=== PATIENT | male | born 1975 ===

== ENCOUNTER 2019-12-25 11:04 | Outpatient (REF) | payer BC, SELFPAY | END 2019-12-25 11:05 | disposition home or self-care (01) | LOC: HO.LAB 11:04 | PROVIDERS: PCP Internal Medicine; Visit Provider Internal Medicine | DX: Z20.828 Contact with and (suspected) exposure to other viral communicable diseases (principal) | CPT/HCPCS: 87635 ==

== ENCOUNTER 2019-12-28 21:28 | Emergency (ER) | payer BC, SELFPAY ==
[2019-12-28 21:40] VITALS: BP 145/111; PULSE 88; RESP 16; TEMP 37.8; O2SAT 95; BMI 31.4
--- NOTE | 2019-12-28 23:23 | ED_ITS ---
HPI - Abdominal Pain General Chief Complaint: Back Pain/Injury Stated Complaint: BACK PAIN Time Seen by Provider: 12/28/19 23:22 Source: patient Mode of arrival: ambulatory Limitations: no limitations History of Present Illness HPI narrative: 44-year-old male presents with left-sided flank pain and swelling. States that he was tested positive for COVID-19 several weeks ago, and has been recently tested negative after Isolation and feels as if he has fully recovered. Left-sided flank pain started several days ago, and he noted that skin to his left flank was swollen. He does not describe any fevers or chi lls, chest pain or pressure, palpitations, shortness of breath, abdominal distention, dysuria, hematuria, and edema. MD elicited complaint: flank pain Pertinent past history: kidney stones Onset (ago): day(s) Pain Consistency: constant and colicky Location: L flank Severity: moderate Pain scale (0-10): 8 Quality: cramping, aching and burning Radiation: none Exacerbating factors: movement Relieving factors: nothing Associated symptoms: denies other symptoms Treatments prior to arrival: NSAIDs Related Data Allergies Allergy/AdvReac Type Severity Reaction Status Date / Time bee pollen [BEE STINGS] Allergy Unknown ANAPHYLAXIS Unverified 12/03/19 16:59 Bleach (Sodium Hypochlorite) Allergy Unknown DIFF Unverified 12/03/19 16:59 [BLEACH (SODIUM BREATHING HYPOCHLORITE)] Fish Containing Products Allergy Unknown HIVES Unverified 12/03/19 16:59 Fish Allergy Unknown swelling Uncoded 09/12/12 00:00 Laundry chemicals Allergy Unknown swelling Uncoded 09/12/12 00:00 Review of Systems Review of Systems Constitutional: No Fever, No Chills ENT/Mouth: No sore throat Eyes: No Eye Pain, No Swelling, No Redness Cardiovascular: No Chest Pain, No SOB Respiratory: No Cough, No Sputum, No Wheezing Gastrointestinal: No nausea, no vomiting, No Diarrhea, positive abdominal pain Genitourinary: positive Flank Pain, no dysuria, no hematuria, no urgency, no hesitancy Musculoskeletal: No joint pain, No Myalgias Skin: No Skin Lesions, No rash Neuro: No Weakness, No Numbness, No Headache Psych: No Anxiety/Panic, No Depression Heme/Lymph: No Bruising, No Lymphadenopathy Endocrine: No Polyuria, No Polydipsia Physical Exam Vital Signs: Vital Signs: Vital Signs Temp Pulse Resp BP Pulse Ox 12/28/19 21:40 100.0 F 88 16 145/111 H 95 Body Mass Index 31.4 Appearance: Alert. Oriented X3. mild distress. Eyes: Pupils equal, round and reactive to light. ENT: Pharynx normal. Neck: Normal inspection. Neck supple. CVS: Normal heart rate and rhythm. Pulses normal. Respiratory: No respiratory distress. Breath sounds normal. Abdomen: Soft, tender to left lower quadrant, positive CVA tenderness to left side. Skin: Skin warm and dry. Normal skin color. Normal skin turgor. Extremities: No lower extremity edema. No lower extremity edema. Neuro: No motor deficit. No sensory deficit. Course Course Course Narrative: patient does have a history of kidney stones, we will treat with Toradol, saline, obtain urinalysis and CT scan of the abdomen. Respiration rate is 16, breath sounds are clear, CBC and Chem 7 are normal. Urinalysis is unremarkable. CT scan of abdomen shows kidney cyst And does not indicate any findings needing emergent intervention at this time. Detailed description of CT scan results with patient, patient will follow-up with primary care provider to closely follow this cyst. He does have plenty of Motrin at home and does not require further pain management. Patient verbalized understanding of and agrees to plan of care to discharge home. MDM - Abdominal Pain Differential Diagnosis Differential diagnosis: Likely abdominal pain, acute appendicitis, bowel perforation, calculus of kidney, constipation, diverticulitis, gastroenteritis, gastritis, mesenteric ischemia, pancreatitis and small bowel obstruction Medical Records Attestation: I reviewed the patient's medical records. Lab Data Attestation: I reviewed the patient's lab results. Result diagrams: 12/28/19 23:40 12/28/19 23:40 Labs: Lab Results 12/28/19 12/28/19 12/28/19 Range/Units 23:40 23:40 23:40 WBC 10.6 (4.8-10.8) X10*3/uL RBC 4.76 (4.60-5.80) X10*6/uL Hgb 15.0 (14.0-18.0) g/dl Hct 43.6 (42-52) % MCV 91.6 (80-98) fL MCH 31.5 (27.0-33.0) pg MCHC 34.4 (31.0-36.0) g/dl RDW 12.6 (11.0-16.0) % Plt Count 264 (160-400) X10*3/uL MPV 10.6 (9.4-12.4) fL Immature Gran % (Auto) 0.3 (0.0-0.4) % Neut % (Auto) 58.1 (45-73) % Lymph % (Auto) 27.1 (20-40) % [place] % (Auto) 7.7 (2-11) % Eos % (Auto) 5.9 H (0-4) % Baso % (Auto) 0.9 (0-2) % Lymph # (Auto) 2.9 (1.2-4.9) X10*3/uL [place] # (Auto) 0.8 (0.1-1.2) X10*3/uL Eos # (Auto) 0.6 H (0.0-0.4) X10*3/uL Baso # (Auto) 0.1 (0.0-0.2) X10*3/uL Abs Immat Gran (auto) 0.03 (0.00-0.03) X10*3/uL Absolute Neuts (auto) 6.2 (2.0-8.3) X10*3/uL Absolute Nucleated RBC 0.000 (0.0-0.012) X10*3/uL Nucleated RBC % (auto) 0.0 (0.0-0.2) /100WBC Sodium 139 (135-145) mmol/L Potassium 4.2 (3.3-5.1) mmol/l Chloride 106 (96-108) mmol/L Carbon Dioxide 25 (22-29) mmol/L Anion Gap 12 (12-20) BUN 8 L (9-16) mg/dL Creatinine 0.94 (0.5-1.4) mg/dL Estim Creat Clear Calc 121.9 Estimated GFR > 60 Random Glucose 113 (60-115) mg/dL Calcium 9.1 (8.4-10.2) mg/dL Urine Color YELLOW Urine Appearance CLEAR Urine pH 6.0 (5.0-8.0) Ur Specific [place] 1.010 (1.005-1.025) Urine Protein NEG (NEG-TRACE) MG/DL Urine Glucose (UA) NEG (NEG) MG/DL Urine Ketones NEG (NEG) MG/DL Urine Blood NEG (NEG) Urine Nitrite NEG (NEG) Ur Leukocyte Esterase NEG (NEG) Imaging Data CT scan - abdomen: Attestation: I personally reviewed and interpreted this imaging study as follows: Radiologist's impression: FINDINGS: LUNG BASES: Some minimal right basilar atelectasis is present. A tiny lung nodule is partially visualized at the left base anteriorly. A small 7 mm right posterior paracardiac lymph node is present. LIVER, GALLBLADDER, AND BILIARY TREE: The liver is normal in size, shape, and attenuation. No focal hepatic lesion or biliary ductal dilatation is present. Surgical clips present in the gallbladder fossa status post cholecystectomy. PANCREAS: Unremarkable SPLEEN: Unremarkable ADRENAL GLANDS: Unremarkable KIDNEYS AND URETERS: The kidneys are normal in size, shape, and attenuation. There is a 5 mm hypoattenuating mass in the mid right kidney most likely a cyst. No worrisome masses are seen. No hydronephrosis, hydroureter, or calculi seen. No perinephric stranding. BLADDER: Unremarkable GASTROINTESTINAL TRACT: The small and large bowel are unremarkable. The appendix is unremarkable. ABDOMINAL WALL: No significant hernia is appreciated. LYMPH NODES: No retroperitoneal lymphadenopathy. Bilateral small inguinal lymph nodes are seen. VASCULAR: Unremarkable PELVIC VISCERA: Prostate and seminal vesicles appear normal. OSSEOUS STRUCTURES: Unremarkable IMPRESSION: A cause for the patient's left flank pain has not been found. Incidental findings as described above. Discharge Plan Discharge Clinical Impression: Renal cyst, Incidental pulmonary nodule, > 3mm and < 8mm Thoracic back pain Qualifiers: Chronicity: acute Back pain laterality: left Qualified Code(s): M54.6 - Pain in thoracic spine Patient Disposition: Admitted As Inpatient Additional Instructions: you were evaluated for left flank pain. CT scan negative for any findings needing acute intervention. Incidental findings are a pulmonary nodule and a right renal cyst. Please follow-up with primary care physician as these findings require Monitoring. Your blood pressure was moderately elevated today. This needs to be addressed by primary care provider. Blood pressure Upon arrival was 145/111. this blood pressure could be due to stress or pain, but primary hypertension cannot be ruled out. Thank you for choosing this emergency department for evaluation. Please follow -up with primary care physician as needed. Return to the emergency department for any new, concerning, or worsening symptoms. [facility] Past Medical History Attestation statement: The following information was validated with the patient. Medical History Asthma Cholelithiasis Hypertension Juan Alberto Parkinson White pattern seen on electrocardiogram Surgical History Hx of heart artery stent Social History Social History Advance Directives: No
[2019-12-28 23:52] LABS: MANUAL DIFF FLAG NO
[2019-12-28 23:57] LABS: Basophils Absolute Auto 0.1 X10*3/uL (0.0-0.2); Basophils Percent Auto 0.9 % (0-2); Eosinophils Absolute Auto 0.6 X10*3/uL (0.0-0.4); Eosinophils Percent Auto 5.9 % (0-4); Hematocrit 43.6 % (42-52); Imm Gran Abs Auto 0.03 X10*3/uL (0.00-0.03); Imm Gran Pct Auto 0.3 % (0.0-0.4); Lymphocytes Absolute Auto 2.9 X10*3/uL (1.2-4.9); Lymphocytes Percent Auto 27.1 % (20-40); Mean Corpuscular HGB Conc 34.4 g/dl (31.0-36.0); Mean Corpuscular Hemoglobin 31.5 pg (27.0-33.0); Mean Corpuscular Volume 91.6 fL (80-98); Mean Platelet Volume 10.6 fL (9.4-12.4); Monocytes Absolute Auto 0.8 X10*3/uL (0.1-1.2); Monocytes Percent Auto 7.7 % (2-11); Neutrophils Absolute Auto 6.2 X10*3/uL (2.0-8.3); Neutrophils Percent Auto 58.1 % (45-73); Platelet Count 264 X10*3/uL (160-400); Red Blood Count 4.76 X10*6/uL (4.60-5.80); Red Cell Distribution Width 12.6 % (11.0-16.0); White Blood Count 10.6 X10*3/uL (4.8-10.8)
--- NOTE | 2019-12-29 | CT_ITS ---
EXAMINATION: CT ABDOMEN AND PELVIS WITHOUT AND WITH CONTRAST CLINICAL INFORMATION: Left flank pain COMPARISON: None TECHNIQUE: Multidetector volumetric imaging was performed of the abdomen and pelvis before and after the IV administration of 85 mL of Omnipaque 350 intravenous contrast. Sagittal and coronal reformatted images were obtained on the technologist's workstation. This CT examination was performed using dose optimization techniques as appropriate, variously including the following: *Automated exposure control *Adjustment of mA and/or kV according to patient size (this includes techniques or standardized protocols for targeted exams where dose is matched to indication/reason for exam; i.e. extremities or head) *Use of iterative reconstruction technique DLP: 239 mGy-cm FINDINGS: LUNG BASES: Some minimal right basilar atelectasis is present. A tiny lung nodule is partially visualized at the left base anteriorly. A small 7 mm right posterior paracardiac lymph node is present. LIVER, GALLBLADDER, AND BILIARY TREE: The liver is normal in size, shape, and attenuation. No focal hepatic lesion or biliary ductal dilatation is present. Surgical clips present in the gallbladder fossa status post cholecystectomy. PANCREAS: Unremarkable SPLEEN: Unremarkable ADRENAL GLANDS: Unremarkable KIDNEYS AND URETERS: The kidneys are normal in size, shape, and attenuation. There is a 5 mm hypoattenuating mass in the mid right kidney most likely a cyst. No worrisome masses are seen. No hydronephrosis, hydroureter, or calculi seen. No perinephric stranding. BLADDER: Unremarkable GASTROINTESTINAL TRACT: The small and large bowel are unremarkable. The appendix is unremarkable. ABDOMINAL WALL: No significant hernia is appreciated. LYMPH NODES: No retroperitoneal lymphadenopathy. Bilateral small inguinal lymph nodes are seen. VASCULAR: Unremarkable PELVIC VISCERA: Prostate and seminal vesicles appear normal. OSSEOUS STRUCTURES: Unremarkable IMPRESSION: A cause for the patient's left flank pain has not been found. Incidental findings as described above.
[2019-12-29 00:04] LABS: Glucose Urine UA NEG (NEG); Leukocyte Esterase Urine NEG (NEG); Nitrite Urine NEG (NEG); Urine Blood NEG (NEG); Urine Ketones NEG (NEG); Urine Protein NEG (NEG-TRACE)
--- NOTE | 2019-12-29 00:04 | PC.NURSE ---
pt not at bedside. iv started labs and urine sent.
[2019-12-29 00:08] LABS: Appearance Urine CLEAR; Color Urine YELLOW; UACC Culture Trigger NO
[2019-12-29 00:21] LABS: Anion Gap 12 (12-20); Blood Urea Nitrogen 8 mg/dL (9-16); Calcium 9.1 mg/dL (8.4-10.2); Carbon Dioxide 25 mmol/L (22-29); Chloride 106 mmol/L (96-108); Creatinine Clr Calc Pharmacy 121.9; Estimated Glomerular Filt Rate > 60; Glucose Random 113 mg/dL (60-115); Potassium 4.2 mmol/l (3.3-5.1); Sodium 139 mmol/L (135-145)
[2019-12-29] MEDS: iohexoL 350 MG/ML 100 ML INFUS..BTL 85 ML IV (00:36)
[2019-12-29] MEDS: 0.9 % Sodium Chloride 1,000 ML 999 ML IVCONT (00:50)
[2019-12-29] MEDS: ondansetron HCL 4 MG/2 ML VIAL IVPUSH (00:51)
[2019-12-29] MEDS: Ketorolac Tromethamine 30 MG/ML VIAL IV (00:51)
[2019-12-29 01:52] VITALS: BP 132/94; PULSE 62; O2SAT 99
== END 2019-12-29 01:54 | disposition home or self-care (01) ==
PROVIDERS: Nurse Practitioner Family; Emergency Provider Internal Medicine; PCP Internal Medicine
DX: M54.6 Pain in thoracic spine (principal); N28.1 Cyst of kidney, acquired; R91.8 Other nonspecific abnormal finding of lung field; I10 Essential (primary) hypertension; I45.6 Pre-excitation syndrome; F17.200 Nicotine dependence, unspecified, uncomplicated; Z86.19 Personal history of other infectious and parasitic diseases
CPT/HCPCS: 36415; 74178; 80048; 81003; 85025; 96361; 96374; 96375; 99283; 99284; J1885; J2405

== ENCOUNTER 2020-02-29 08:32 | Outpatient (REF) | payer BC, SELFPAY ==
--- NOTE | 2020-02-29 08:34 | CT_ITS ---
EXAMINATION: CT CHEST WITH CONTRAST CLINICAL INFORMATION: Solitary pulmonary nodule. COMPARISON: CT abdomen 12/29/2019 TECHNIQUE: Multidetector volumetric CT imaging of the chest was obtained after the administration of 75 mL of Omnipaque 350 intravenous contrast without immediate adverse reactions. Axial MIP volume rendering provided. Sagittal and coronal reformatted images were obtained. This CT examination was performed using dose optimization techniques as appropriate, variously including the following: *Automated exposure control *Adjustment of mA and/or kV according to patient size (this includes techniques or standardized protocols for targeted exams where dose is matched to indication/reason for exam; i.e. extremities or head) *Use of iterative reconstruction technique DLP: 191 mGy-cm FINDINGS: LUNGS: Multiple pulmonary nodules are seen. As seen on series 5, the larger nodules are as follows: Right middle lobe 6 mm nodule image 310. Right lower lobe 3 mm nodule image 432; 4 mm nodule image 357; 3 mm nodule image 305. Scattered small nodules in the left lung, for example 2 mm nodule image 188. MEDIASTINUM: Visualized thyroid gland appears unremarkable. No lymphadenopathy by size criteria is seen in the mediastinum or delta. Normal caliber great vessels. Normal heart size. No pericardial effusion. PLEURA: There is no pleural effusion. No pleural mass or thickening. AXILLA: Short axis subcentimeter nonspecific bilateral axillary lymph nodes. No lymphadenopathy by size criteria. UPPER ABDOMEN: Diffuse low attenuation liver suggesting hepatic steatosis. Status post-cholecystectomy. OSSEOUS STRUCTURES: No suspicious findings. CT/CT chest w con IMPRESSION: Multiple pulmonary nodules, the largest measuring 6 mm, detailed above. According to the UPDATED 2017 Fleischner Society recommendations, the advised followup imaging for multiple solid nodules, the largest measuring 6 mm or greater, is: LOW RISK PATIENT: CT at 3-6 months, then consider CT at 18-24 months. HIGH RISK PATIENT: CT at 3-6 months, then at 18-24 months. Hepatic steatosis. Status post-cholecystectomy.
[2020-02-29] MEDS: iohexoL 350 MG/ML 100 ML INFUS..BTL 75 ML IV (09:36)
== END 2020-02-29 08:33 | disposition home or self-care (01) ==
LOC: HO.CT 08:32
PROVIDERS: Visit Provider Physician Assistant
DX: R91.1 Solitary pulmonary nodule (principal)
CPT/HCPCS: 71260; Q9967

== ENCOUNTER 2020-03-29 09:13 | Outpatient (REF) | payer BC, SELFPAY ==
[2020-03-29 13:49] LABS: Urine Cytology See Pathology rpt
[2020-03-29 14:31] LABS: Glucose Urine UA NEG (NEG); Leukocyte Esterase Urine NEG (NEG); Nitrite Urine NEG (NEG); Urine Blood NEG (NEG); Urine Ketones NEG (NEG); Urine Protein NEG (NEG-TRACE)
[2020-03-29 14:33] LABS: Appearance Urine CLEAR; Color Urine YELLOW
[2020-03-29 14:43] LABS: Anion Gap 13 (12-20); Blood Urea Nitrogen 8 mg/dL (9-16); Calcium 8.9 mg/dL (8.4-10.2); Carbon Dioxide 25 mmol/L (22-29); Chloride 108 mmol/L (96-108); Estimated Glomerular Filt Rate > 60; Potassium 4.4 mmol/l (3.3-5.1); Sodium 142 mmol/L (135-145)
[2020-03-29 15:11] LABS: Creatinine, mg/dL 107.13; Protein mg/dL < 7 mg/dL
[2020-03-29 15:12] LABS: Creatinine (CrCl) 0.82 mg/dL (0.5-1.4); Creatinine Clearance 115.6 mL/min (85-125)
[2020-03-29 15:13] LABS: Creatinine, 24Hr Urine 1.4 G/Day (1.0-2.0); Protein 24 Hr Urine < 89 mg/Day (<150); Total Volume 24 Hour Urine 1275 mL
[2020-03-30 18:57] LABS: Urea, 24 Hr Urine 7 g/24 h (6-17)
== END 2020-03-29 09:14 | disposition home or self-care (01) ==
LOC: HO.10HDL 09:13
PROVIDERS: Visit Provider Internal Medicine Hypertension Specialist
DX: I10 Essential (primary) hypertension (principal); N28.89 Other specified disorders of kidney and ureter
CPT/HCPCS: 36415; 80051; 81003; 82310; 82565; 82575; 84156; 84520; 84540; 88112

== ENCOUNTER 2020-04-20 09:04 | Emergency (ER) | payer BC, SELFPAY ==
[2020-04-20 09:42] VITALS: BP 149/97; PULSE 77; RESP 16; TEMP 36.8; O2SAT 97; BMI 34.7
--- NOTE | 2020-04-20 09:54 | XR_ITS ---
EXAMINATION: XR CHEST CLINICAL INFORMATION: Chest pain and SOB COMPARISON: Chest 12/12/2019 TECHNIQUE: Frontal view of the chest was obtained. FINDINGS: No significant abnormality is noted involving the heart, lungs, mediastinum, bony thorax or soft tissues. XR/XR chest 1V IMPRESSION: Unremarkable chest examination.
--- NOTE | 2020-04-20 09:54 | ECG_ITS ---
Test Reason : CP Blood Pressure : / mmHG Vent. Rate : 075 BPM Atrial Rate : 075 BPM P-R Int : 144 ms QRS Dur : 094 ms QT Int : 342 ms P-R-T Axes : 014 000 010 degrees QTc Int : 381 ms Normal sinus rhythm Normal ECG When compared with ECG of 30-NOV-2019 13:36, No significant change was found Referred By: Janay Nelson Electronically Signed By:BASSAM BOO MD
--- NOTE | 2020-04-20 09:57 | ED_ITS ---
HPI - General Adult General Chief complaint: General Medical Stated complaint: chest pain Time Seen by Provider: 04/20/20 09:54 Source: patient Mode of arrival: ambulatory History of Present Illness HPI narrative: 45-year-old male with a past medical history of HTN, CAD s/p stent, newly diagnosed renal mass/pulmonary nodules, previously COVID-19+ presenting to the ED complaining of sudden onset substernal chest pain after coughing radiating to right shoulder x this morning at 7:00 a.m. Admits pain worse with deep breathing/movement with mild SOB. Denies fever, chills, nausea/vomiting, abdominal pain, LE edema Onset (ago): hour(s) Related Data Previous Rx's Medication Instructions Recorded acetaminophen [Tylenol Extra 500 mg PO Q6H PRN #20 tab 04/20/20 Strength] lidocaine [Lidoderm] 1 patch TOPICAL DAILY PRN #30 ea 04/20/20 MDD remove after 12 hours naproxen 500 mg PO BID PRN 10 Days #20 tab 04/20/20 Allergies Allergy/AdvReac Type Severity Reaction Status Date / Time bee pollen [BEE STINGS] Allergy Unknown ANAPHYLAXIS Verified 12/30/19 13:31 Bleach (Sodium Hypochlorite) Allergy Unknown DIFF Verified 12/30/19 13:31 [BLEACH (SODIUM BREATHING HYPOCHLORITE)] Fish Containing Products Allergy Unknown HIVES Verified 12/30/19 13:31 Review of Systems Review of Systems: Constitutional: No Weight loss, No Fever, No Chills Cardiovascular: + Chest Pain, + SOB, No Dyspnea on Exertion, + Orthopnea, No Edema, No Palpitations Respiratory: No Cough Gastrointestinal: No Nausea, No Vomiting, No Diarrhea, No Constipation, No Abdominal pain Genitourinary: No irregular bleeding, No Dysuria, No Urinary Frequency, No Hematuria Musculoskeletal: No joint pain, No Myalgias, No Joint Swelling Skin: No Skin Lesions, No rash Neuro: No Weakness, No Numbness, No Paresthesias Yes all other systems are reviewed and are negative [facility] Past Medical History Medical History (Updated 04/20/20 @ 13:52 by SKY Nunes) Asthma CAD (coronary artery disease) Cholelithiasis Essential hypertension Hypertension Lung nodule Nocturia Right kidney mass Juan Alberto Parkinson White pattern seen on electrocardiogram Surgical History History of cardiac catheterization History of laparoscopic cholecystectomy Hx of heart artery stent Family History Family History (Updated 12/30/19 @ 13:18 by MICKEY Calhoun) Son Heart murmur Daughter Heart disease Maternal Aunt Cancer Myocardial infarction Mother Cancer Father Heart disease Social History Social History Smoking Status: Current every day smoker Packs Per Day: 1 Cigarettes Per Day: 20.0 Advance Directives: Yes Advance Directives Information Provided: Yes Advance Directives on File: No Physical Exam Vital Signs: Vital Signs: Last Vital Signs Temp 98.2 F 04/20/20 09:42 Pulse 77 04/20/20 09:42 Resp 16 04/20/20 09:42 BP 149/97 H 04/20/20 09:42 Pulse Ox 97 04/20/20 09:42 Body Mass Index 34.7 Const: General: cooperative, healthy appearing, comfortable and no acute distress Orientation/consciousness: patient oriented x3 Limitations: no limitations HENMT: Head: Yes normal to inspection Ears: hearing grossly normal bilaterally General nose exam: Normal external nose present Face and sinus: Yes normal facial exam Eyes: General: appearance normal, both eyes and all related structures EOM: EOMs intact bilaterally Neck: Neck: Yes normal visual inspection and Yes no meningeal signs Chest: Chest palpation & inspection: normal inspection of the chest, no crepitus and tenderness (Substernal area) Resp: Effort & Inspection: normal respiratory effort Auscultation: clear to auscultation bilaterally, no rales, no rhonchi and no wheezes Cardio: Rate: regular rate Heart sounds: S1 normal heart sound present and S2 normal heart sound present GI: Inspection: Yes normal to inspection Palpation (GI): Soft to palpation, nontender, no guarding and not rigid Skin: Rashes: no rashes Wounds: no wounds Neuro: General: patient oriented x3 and no meningeal signs Gait exam (Neuro): Normal gait present Extrem: Other: No LE edema or calf tenderness General: Yes normal to inspection Course Course Course Narrative: -1227-- D-dimer negative, initial troponin 6.8 > will obtain 3 hour repeat, labs otherwise unremarkable, CXR unremarkable -1352-- repeat troponin without 50% increase, VT unlikely. Results discussed with patient including worrisome signs and symptoms and strict return precautions. He verbalized understanding feel safe for discharge home Medical Decision Making MDM Narrative Medical decision making narrative: 45-year-old male with a past medical history of HTN, CAD s/p stent, newly diagnosed renal mass/pulmonary nodules, previously COVID-19+ presenting to the ED complaining of sudden onset substernal chest pain after coughing radiating to right shoulder x this morning at 7:00 a.m. on exam VSS, NAD/nontoxic, pain reproducible, lungs CTA. With patient's history concerning for ACS/PE vs MSK pain/costochondritis. Lower concern for DVT/CHF or pneumonia. Low concern for COVID-19 Plan: EKG, labs, CXR, re-evaluate Lab Data Result diagrams: 04/20/20 10:29 04/20/20 10:29 Labs: Lab Results 04/20/20 04/20/20 04/20/20 Range/Units 10:29 10:29 10:29 WBC 9.8 (4.8-10.8) X10*3/uL RBC 4.81 (4.60-5.80) X10*6/uL Hgb 15.5 (14.0-18.0) g/dl Hct 44.6 (42-52) % MCV 92.7 (80-98) fL MCH 32.2 (27.0-33.0) pg MCHC 34.8 (31.0-36.0) g/dl RDW 12.6 (11.0-16.0) % Plt Count 233 (160-400) X10*3/uL MPV 11.3 (9.4-12.4) fL Immature Gran % (Auto) 0.3 (0.0-0.4) % Neut % (Auto) 61.6 (45-73) % Lymph % (Auto) 27.2 (20-40) % [place] % (Auto) 6.8 (2-11) % Eos % (Auto) 3.2 (0-4) % Baso % (Auto) 0.9 (0-2) % Lymph # (Auto) 2.7 (1.2-4.9) X10*3/uL [place] # (Auto) 0.7 (0.1-1.2) X10*3/uL Eos # (Auto) 0.3 (0.0-0.4) X10*3/uL Baso # (Auto) 0.1 (0.0-0.2) X10*3/uL Abs Immat Gran (auto) 0.03 (0.00-0.03) X10*3/uL Absolute Neuts (auto) 6.0 (2.0-8.3) X10*3/uL Absolute Nucleated RBC 0.000 (0.0-0.012) X10*3/uL Nucleated RBC % (auto) 0.0 (0.0-0.2) /100WBC PT 12.1 (10.8-13.0) SEC INR 1.0 (0.9-1.1) APTT 32.1 (24.1-38.0) SEC D-Dimer < 200 NG/ML Sodium 138 (135-145) mmol/L Potassium 4.4 (3.3-5.1) mmol/L Chloride 106 (96-108) mmol/L Carbon Dioxide 23 (22-29) mmol/L Anion Gap 13 (12-20) BUN 7 L (9-16) mg/dL Creatinine 0.88 (0.5-1.4) mg/dL Estim Creat Clear Calc 135.4 Estimated GFR > 60 Random Glucose 94 (60-115) mg/dL Calcium 9.1 (8.4-10.2) mg/dL Troponin I High Sens (<3.5-35.0) ng/L B-Natriuretic Peptide (<100) pg/mL 04/20/20 04/20/20 04/20/20 Range/Units 10:29 10:29 12:36 WBC (4.8-10.8) X10*3/uL RBC (4.60-5.80) X10*6/uL Hgb (14.0-18.0) g/dl Hct (42-52) % MCV (80-98) fL MCH (27.0-33.0) pg MCHC (31.0-36.0) g/dl RDW (11.0-16.0) % Plt Count (160-400) X10*3/uL MPV (9.4-12.4) fL Immature Gran % (Auto) (0.0-0.4) % Neut % (Auto) (45-73) % Lymph % (Auto) (20-40) % [place] % (Auto) (2-11) % Eos % (Auto) (0-4) % Baso % (Auto) (0-2) % Lymph # (Auto) (1.2-4.9) X10*3/uL [place] # (Auto) (0.1-1.2) X10*3/uL Eos # (Auto) (0.0-0.4) X10*3/uL Baso # (Auto) (0.0-0.2) X10*3/uL Abs Immat Gran (auto) (0.00-0.03) X10*3/uL Absolute Neuts (auto) (2.0-8.3) X10*3/uL Absolute Nucleated RBC (0.0-0.012) X10*3/uL Nucleated RBC % (auto) (0.0-0.2) /100WBC PT (10.8-13.0) SEC INR (0.9-1.1) APTT (24.1-38.0) SEC D-Dimer NG/ML Sodium (135-145) mmol/L Potassium (3.3-5.1) mmol/L Chloride (96-108) mmol/L Carbon Dioxide (22-29) mmol/L Anion Gap (12-20) BUN (9-16) mg/dL Creatinine (0.5-1.4) mg/dL Estim Creat Clear Calc Estimated GFR Random Glucose (60-115) mg/dL Calcium (8.4-10.2) mg/dL Troponin I High Sens 6.8 9.3 (<3.5-35.0) ng/L B-Natriuretic Peptide < 10 (<100) pg/mL Discharge Plan Discharge Clinical Impression: Atypical chest pain, Costochondritis Patient Disposition: Home, Self-Care Instructions: Chest Pain (ED) Additional Instructions: Your blood work was reassuring today in the ED Your x-ray was normal You need to follow-up with your primary care doctor as well as Cardiology If your symptoms persist or worsen, become unbearable, fever, or shortness of breath return to the ED Naproxen as an anti-inflammatory/pain medication, take with food. In addition jack Benderenol and use Lidoderm patches Prescriptions: New acetaminophen [Tylenol Extra Strength] 500 mg tablet 500 mg PO Q6H PRN (Reason: pain or fever) Qty: 20 RF: 0 lidocaine [Lidoderm] 5 % adhesive patch,medicated 1 patch topical DAILY MDD remove after 12 hours PRN (Reason: pain) Qty: 30 RF: 0 naproxen 500 mg tablet 500 mg PO BID PRN (Reason: pain) 10 Days Qty: 20 RF: 0 Referrals: Addison Lilly MD [Physician] - 1 week Stand Alone Forms: Work/School Release
[2020-04-20 10:36] LABS: MANUAL DIFF FLAG NO
[2020-04-20 10:40] LABS: Basophils Absolute Auto 0.1 X10*3/uL (0.0-0.2); Basophils Percent Auto 0.9 % (0-2); Eosinophils Absolute Auto 0.3 X10*3/uL (0.0-0.4); Eosinophils Percent Auto 3.2 % (0-4); Hematocrit 44.6 % (42-52); Hemoglobin 15.5 g/dl (14.0-18.0); Imm Gran Abs Auto 0.03 X10*3/uL (0.00-0.03); Imm Gran Pct Auto 0.3 % (0.0-0.4); Lymphocytes Absolute Auto 2.7 X10*3/uL (1.2-4.9); Lymphocytes Percent Auto 27.2 % (20-40); Mean Corpuscular HGB Conc 34.8 g/dl (31.0-36.0); Mean Corpuscular Hemoglobin 32.2 pg (27.0-33.0); Mean Corpuscular Volume 92.7 fL (80-98); Mean Platelet Volume 11.3 fL (9.4-12.4); Monocytes Absolute Auto 0.7 X10*3/uL (0.1-1.2); Monocytes Percent Auto 6.8 % (2-11); Neutrophils Percent Auto 61.6 % (45-73); Platelet Count 233 X10*3/uL (160-400); Red Blood Count 4.81 X10*6/uL (4.60-5.80); Red Cell Distribution Width 12.6 % (11.0-16.0); White Blood Count 9.8 X10*3/uL (4.8-10.8)
[2020-04-20 10:44] LABS: Prothrombin Time 12.1 SEC (10.8-13.0)
[2020-04-20 10:47] LABS: Partial Thromboplastin Time 32.1 SEC (24.1-38.0)
[2020-04-20 10:48] LABS: D Dimer < 200 NG/ML
[2020-04-20 11:02] LABS: Anion Gap 13 (12-20); Blood Urea Nitrogen 7 mg/dL (9-16); Calcium 9.1 mg/dL (8.4-10.2); Carbon Dioxide 23 mmol/L (22-29); Chloride 106 mmol/L (96-108); Creatinine Clr Calc Pharmacy 135.4; Estimated Glomerular Filt Rate > 60; Glucose Random 94 mg/dL (60-115); Potassium 4.4 mmol/L (3.3-5.1); Sodium 138 mmol/L (135-145)
[2020-04-20 11:10] LABS: Troponin-I High Sensitivity 6.8 ng/L (<3.5-35.0)
[2020-04-20 11:11] LABS: B Type Natriuretic Peptide < 10 pg/mL (<100)
[2020-04-20 13:45] LABS: Troponin-I High Sensitivity 9.3 ng/L (<3.5-35.0)
[2020-04-20 14:15] VITALS: BP 131/76; PULSE 79; RESP 16; TEMP 36.8; O2SAT 94
== END 2020-04-20 14:18 | disposition home or self-care (01) ==
PROVIDERS: Physician Assistant; Emergency Provider Emergency Medicine; PCP Internal Medicine
DX: R07.89 Other chest pain (principal); M94.0 Chondrocostal junction syndrome [Tietze]; I10 Essential (primary) hypertension; J45.909 Unspecified asthma, uncomplicated; F17.210 Nicotine dependence, cigarettes, uncomplicated; Z86.16 Personal history of COVID-19
CPT/HCPCS: 36415; 71045; 80048; 83880; 84484; 85025; 85379; 85610; 85730; 93005; 99284

== ENCOUNTER → 2020-04-28 15:44 | Outpatient (BNVA) | payer BC, SELFPAY | PROVIDERS: PCP Internal Medicine; Visit Provider Internal Medicine Pulmonary Disease ==

== ENCOUNTER → 2020-05-03 09:56 | Outpatient (BNVA) | payer BC, SELFPAY | PROVIDERS: PCP Internal Medicine; Visit Provider Nurse Practitioner Family ==

== ENCOUNTER → 2020-05-09 07:23 | Outpatient (REF) | payer BC, SELFPAY ==
--- NOTE | 2020-05-09 07:34 | CA_ITS ---
Transthoracic Echocardiogram Patient (Last, First, Middle): Brandon Barriga M Gender: Male Date of : 1975 Age: 45 Procedure Date: 05/09/2020 Procedure Type: Transthoracic Echocardiogram Location: OP Height: 180.34 cm Weight: 109.77 kg BSA: 2.29 m2 Heart Rate: bpm BP: 120 / 70 mmHg Manager Of Employee Relations: KENNEDY Thorpe MD: Joya Bonner LOFT WORKER HEADPérezC Postal Clerk: Addison Lilly MD Symptoms: I10 - Essential (primary) hypertension Study Quality: Good ECG Rhythm: Sinus Conclusions: - Essentially normal study Findings Left Ventricle Normal left ventricular size, thickness, and systolic function. The visually estimated ejection fraction is between 60-65%. Diastolic function is normal for age. Right Ventricle Normal right ventricular cavity size and systolic function. Atria Both atria are normal in size. There is no evidence of interatrial shunt. Aortic Valve Normal aortic valve structure and function. There is no aortic valve stenosis. There is no aortic valve regurgitation. Mitral Valve Normal mitral valve structure and function. There is trace mitral valve regurgitation. There is no mitral valve stenosis. Pulmonic Valve The pulmonic valve is likely normal. There is trace to mild pulmonic valve regurgitation. Tricuspid Valve Normal tricuspid valve structure. There is trace tricuspid valve regurgitation. The right ventricular systolic pressure is 14 mmHg. Normal right atrial pressure. There is no evidence of pulmonary hypertension. Great Vessels All visible segments of the aorta are normal in size. The pulmonary artery was not well visualized. Venous The inferior vena cava is normal in size and collapses greater than 50% with inspiration. Pericardium/Pleural There is no evidence of pericardial effusion. Prior Study Comparison No prior study available for comparison. Measurements 2D Linear Measurements IVSd: 0.90 0.6-0.9/0.6-1.0 cm LVIDd: 5.36 3.9-5.3/4.2-5.9 cm LVIDd Index: 2.34 2.4-3.2/2.2-3.1 cm/m2 LVIDs: 3.70 2.0-3.6 cm LVPWd: 0.92 0.7-1.1 cm Ao Root: 3.90 2.1-3.5 cm LA Diam: 3.30 2.7-3.8/3.0-4.0 cm LAIDs Index: 1.44 1.5-2.3 cm/m2 LV Mass: 224.96 67-162/88-224 g LV Mass Index: 98.24 43-95/49-115 g/m2 LVOT Diam: 2.40 3.0+(-)1.3 cm 2D Systolic Function EF 4C: 53.10 >55% EF 2C: 54.60 >55% Mitral Valve MV Pk E: 0.73 MV PK A: 0.55 MV Decel Time: 215.00 E/A: 1.30 E'Lateral: 10.10 E'Medial: 7.29 E/E' Med: 10.00 E/E' Lat: 7.20 PHT: 63.00 MVA PHT: 3.49 Decel [place]: 3.39 Aortic Valve AoV Pk Roverto: 1.20 AoV Mn Roverto: 0.82 AoV VTI: 0.24 AoV Pk Grad: 6.00 Aov Mn Grad: 3.00 JOYCELYN Cont.VTI: 3.36 LVOT LVOT Pk Roverto: 0.92 LVOT Mn Roverto: 0.58 LVOT VTI: 0.18 LVOT Pk Grad: 3.00 LVOT Mn Grad: 2.00 LVOT Diam: 2.40 LVOT Area: 4.52 Diastolic Function MV Pk E: 0.73 MV Pk A: 0.55 E/A: 1.30 E'Medial: 7.29 E/E' Med: 10.00 E' Laterial: 10.10 E/E' Lat: 7.20 Tricuspid Valve TR Pk Roverto: 1.69 TR Pk Grad: 11.00 RA Press: 3.00 RVSP: 14.00 Great Vessels Aorta Ao Root-2D: 3.90 2.0-3.7 cm Ao Asc: 3.20 2.1-3.4 cm Ao Arch: 3.00 Updated in Other Vendor System with Status of Final Addison Lilly MD electronically signed on 05/09/2020 4:30:10 PM with status of Final
== END ==
LOC: HO.CARD 07:23
PROVIDERS: Visit Provider Nurse Practitioner Family
DX: R07.9 Chest pain, unspecified (principal); I10 Essential (primary) hypertension
CPT/HCPCS: 93306

== ENCOUNTER 2020-05-10 14:52 | Outpatient (REF) | payer BC, SELFPAY ==
--- NOTE | 2020-05-10 17:40 | PFT_ITS ---
Forced vital capacity, FEV1, OVF40-00, and MVV are all normal. Post bronchodilator therapy, there is no significant change. Total lung capacity and residual volume normal. Diffusion capacity is slightly decreased. CONCLUSION: Normal pulmonary function test. Slight decrease in diffusion capacity may be due to technical reason or due to non-pulmonary factors. Clinical correlation is recommended. MD MICHELINE Mercado/JENNIE / [id number]
== END 2020-05-10 14:53 | disposition home or self-care (01) ==
LOC: HO.RESP 14:52
PROVIDERS: PCP Internal Medicine; Visit Provider Internal Medicine Pulmonary Disease
DX: R06.00 Dyspnea, unspecified (principal)
CPT/HCPCS: 94060; 94727; 94729

== ENCOUNTER → 2020-05-17 14:10 | Outpatient (BNVA) | payer BC, SELFPAY | PROVIDERS: PCP Internal Medicine; Visit Provider Internal Medicine Pulmonary Disease ==

== ENCOUNTER 2020-05-26 08:18 | Outpatient (REF) | payer BC, SELFPAY | END 2020-05-26 08:19 | disposition home or self-care (01) | LOC: HO.LAB 08:18 | PROVIDERS: Visit Provider Internal Medicine | DX: Z20.822 Contact with and (suspected) exposure to COVID-19 (principal) | CPT/HCPCS: 36415; C9803; U0003; U0005 ==

== ENCOUNTER → 2020-05-27 09:47 | Outpatient (BNVA) | payer BC, SELFPAY | PROVIDERS: PCP Internal Medicine; Visit Provider Nurse Practitioner Family ==

== ENCOUNTER → 2020-06-21 08:56 | Outpatient (REF) | payer BC, SELFPAY | LOC: HO.SL 08:56 | PROVIDERS: PCP Internal Medicine; Visit Provider Internal Medicine Pulmonary Disease | DX: Z13.89 Encounter for screening for other disorder (principal) ==

== ENCOUNTER → 2020-06-22 08:03 | Outpatient (REF) | payer BC, SELFPAY ==
--- NOTE | 2020-06-22 07:57 | CA_ITS ---
Acquisition Time: 2020-06-22 08:15:29 Total Exercise Time: 00:08:19 Test Indications: Dyspnea Medications: AMLODIPINE FUROSEMIDE NAPROXEN ANORRO ELLIPTA Protocol: LAKSHMI Max HR: 150 BPM 85% of Pred: 175 BPM Max BP: 174/074 mmHG Max Work Load: 10.1 METS Exercise stress test using Lakshmi protocol total of 8 min 19 sec. METS 10.10 and TAPHR up to 85%. Pt tolerated well, denies any anginal sx. EKG without any arrhythmias, no ischemic changes seen during exercise or in recovery. Normotensive response to exercise. Test reviewed with Dr. Lilly. Referred By: Joya Bonner Overread By: Joyce Schwartz NP
== END ==
LOC: HO.CARD 08:03
PROVIDERS: Visit Provider Nurse Practitioner Family
DX: R07.9 Chest pain, unspecified (principal); I10 Essential (primary) hypertension
CPT/HCPCS: 93016; 93017; 93018

== ENCOUNTER 2020-07-18 08:08 | Outpatient (REF) | payer BC, SELFPAY ==
--- NOTE | ~2020-07-18 | XR_ITS ---
EXAMINATION: XR SHOULDER, RIGHT CLINICAL INFORMATION: Right shoulder pain. COMPARISON: None TECHNIQUE: AP external rotation, Grashey, scapular Y, and axillary views of the right shoulder. FINDINGS: There is no visible acute fracture, dislocation or subluxation seen. No bony erosive changes. The soft tissues are normal. XR/XR shoulder RT min 2V IMPRESSION: Unremarkable right shoulder exam.
== END 2020-07-18 08:09 | disposition home or self-care (01) ==
LOC: HO.HOSX 08:08
PROVIDERS: Visit Provider Orthopaedic Surgery
DX: M25.319 Other instability, unspecified shoulder (principal); M25.311 Other instability, right shoulder; G89.29 Other chronic pain
CPT/HCPCS: 73030

== ENCOUNTER 2020-08-29 09:14 | Outpatient (REF) | payer BC, MEDICAID, SELFPAY ==
--- NOTE | ~2020-08-29 | CT_ITS ---
EXAMINATION: CT CHEST WITHOUT CONTRAST CLINICAL INFORMATION: Follow-up pulmonary nodules COMPARISON: Previous chest CT scan February 2020 chest x-ray April 2020 TECHNIQUE: Multidetector volumetric CT imaging of the chest was done. Axial MIP volume rendering provided. Sagittal and coronal reformatted images were obtained. This CT examination was performed using dose optimization techniques as appropriate, variously including the following: *Automated exposure control *Adjustment of mA and/or kV according to patient size (this includes techniques or standardized protocols for targeted exams where dose is matched to indication/reason for exam; i.e. 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 There is a 4 mm peripheral or subpleural right upper lobe nodule that is no longer seen. There is a 4 mm peripheral or subpleural right middle lobe nodule adjacent to the minor fissure axial image 259 series 4 that is stable. The 2 right lower lobe nodules measuring 3 and 5 mm on February 2020 exam are no longer seen. There is a small peripheral or subpleural 2 mm left lower lobe nodule axial image 379 series 5 that is stable. No new pulmonary nodules are seen. MEDIASTINUM: There are small mediastinal lymph nodes that are stable. No enlarged lymph nodes are seen. The mediastinum is otherwise normal. PLEURA: There is no pleural effusion. No pleural mass or thickening. AXILLA: There are small bilateral axillary lymph nodes that are stable. No enlarged lymph nodes are seen. UPPER ABDOMEN: The gallbladder has been removed. OSSEOUS STRUCTURES: Unremarkable. CT/CT chest wo con IMPRESSION: Interval decrease in number of pulmonary nodules compared to February 2020 exam. Largest pulmonary nodule is a 4 mm peripheral or subpleural right middle lobe nodule adjacent to the minor fissure probably representing a subpleural lymph node.
== END 2020-08-29 09:15 | disposition home or self-care (01) ==
LOC: HO.CT 09:14
PROVIDERS: Visit Provider Internal Medicine Pulmonary Disease
DX: R91.8 Other nonspecific abnormal finding of lung field (principal)
CPT/HCPCS: 71250

== ENCOUNTER 2020-09-16 07:00 | Outpatient (RCR) | payer BC, MEDICAID, SELFPAY ==
--- NOTE | 2020-08-11 08:38 | MHC.PT.EP ---
[facility] [place] Office [place] Office [place] Office [address] Kelsie Roth [address] [phone] F: [phone] F: [phone] F: [phone] F: [phone] Physical Therapy Plan of Care Date of Evaluation: Date of Surgery: Diagnosis: right shoulder instability Assessment: The patient arrived with slightly reduced right shoulder ROM and strength. He had apprehension with resistance and motion. Pain was mostly at end range. Pt is presenting with symptoms consistent with secondary shoulder impingement. He was positive for 3 impingement tests. Weakness noted in shoulder extensors, shoulder depressors, and external rotation. He would benefit from a specific HEP to improve GH muscle balance. He was educated on positions and movements to avoid to decrease aggravating factors. Posture correction will also be important to decrease neural tension. He is a good candidate for skilled PT. Frequency and Duration: The patient will be seen 2x/week x 4 weeks Short Term Goals: Pt to be able to report 50% improvement in functional reaching. - Pt to be able to report 50% less pain with getting dressed. Marine Engineering Professor Goals: 4 weeks - The patient to have greater than 160 degrees of flexion and abduction to show improved functional ROM. 4 weeks ? The patient to have 5/5 strength with flexion and abduction to demonstrate functional strength 4 weeks ? The patient to be able to return to all functional reaching, self care ADL's without any limitation from pain or loss of ROM. Treatment Plan: Modalities to reduce pain, spasms and effusion. Manual therapy to restore motion and function. Therapeutic exercise to improve strength and flexibility. Neuromuscular re-education for posture and balance. Therapeutic activities to return to functional activities of daily living. Electronically signed by: Precious Lopez PT DPT Please sign and return to therapist. Thank you for your referral.
--- NOTE | 2020-09-16 10:33 | MHC.PT.DC ---
[facility] [place] Office [place] Office [place] Office [address] Kelsie Roth [address] [phone] F: [phone] F: [phone] F: [phone] F: [phone] Physical Therapy Discharge Report Diagnosis: right shoulder instability Date of Surgery: Date of Evaluation: 08/11/20 Date of Discharge: 09/16/20 Treatments to Date: 7 Cancellations to Date: No Shows to Date: Discharge Status: Recommend MD Follow-up Discharge Summary: shoulder flexion 156 with pain ( pain begins at 130), shoulder abduction 120 (pain begins at a 100) with pain at end range. shoulder ER is 60 degrees with pain. He feels a charley horse type spasm with end range. He is positive for the clunk test and crank test. He has pain at the posterior corner of GH joint during end range. He is positive for all impingement tests in the right shoulder. Due to lack of improvement with strength exercises along with no improvement with iontophoresis and manual therapy. I recommend further diagnostic imaging of the right shoulder joint. The patient is d/c from skilled PT. He was asked to continue his HEP pain free. Electronically signed by: Precious Lopez PT DPT Please sign and return to therapist. Thank you for your referral.
== END 2020-09-18 08:00 | disposition home or self-care (01) ==
LOC: HO.PT 07:00
PROVIDERS: PCP Internal Medicine; Visit Provider Orthopaedic Surgery
DX: M25.511 Pain in right shoulder (principal); S43.431D Superior glenoid labrum lesion of right shoulder, subsequent encounter; G89.29 Other chronic pain
CPT/HCPCS: 97033; 97110; 97112; 97140; 97162

== ENCOUNTER 2020-11-09 13:02 | Outpatient (REF) | payer BC, MEDICAID, SELFPAY ==
[2020-11-09 14:31] LABS: Anion Gap 11 (12-20); Blood Urea Nitrogen 8 mg/dL (9-16); Calcium 9.9 mg/dL (8.4-10.2); Carbon Dioxide 25 mmol/L (22-29); Chloride 107 mmol/L (96-108); Estimated Glomerular Filt Rate > 60; Potassium 4.3 mmol/L (3.3-5.1); Sodium 139 mmol/L (135-145)
== END 2020-11-09 13:03 | disposition home or self-care (01) ==
LOC: HO.LAB 13:02
PROVIDERS: PCP Internal Medicine; Visit Provider Internal Medicine Hypertension Specialist
DX: I10 Essential (primary) hypertension (principal); N28.89 Other specified disorders of kidney and ureter
CPT/HCPCS: 36415; 80051; 82310; 82565; 84520

== ENCOUNTER 2020-11-30 16:03 | Outpatient (REF) | payer OTHER, SELFPAY ==
--- NOTE | ~2020-11-30 | MR_ITS ---
EXAMINATION: MR SHOULDER WITHOUT CONTRAST, RIGHT CLINICAL INFORMATION: Right shoulder pain. COMPARISON: Radiographs of the shoulder from 07/18/2020 TECHNIQUE: MRI of the shoulder without contrast was performed on a high-field 1.5 Jacqueline scanner. FINDINGS: ROTATOR CUFF: A small, linear focus of hyperintense T2 signal of the distal supraspinatus tendon measures 0.6 cm in mediolateral dimension and 0.4 cm AP dimension. On the coronal images, this small tear is seen within the substance of the tendon with possible involvement of the articular surface of the cuff. However, on the sagittal images, there is no convincing articular surface involvement. There are no retracted tendon fibers. The infraspinatus, subscapularis and teres minor tendons are normal. The rotator cuff muscles are normal. No significant atrophy or edema of the muscles. BICEPS: The long head of the biceps tendon is normal. It is appropriately positioned within the intertubercular sulcus of the humerus. The intra-articular segment of the tendon, and biceps-labral junction, are intact. CORACOACROMIAL ARCH: Small osteophytes at the inferior margin of the acromioclavicular joint. There is subarticular bone marrow edema of the joint, compatible with mild degenerative and/or stress related changes. No fracture. The undersurface of the acromion is slightly curved. No os acromiale or anterior acromial enthesophyte. No subacromial-subdeltoid bursitis. LABRUM/CAPSULE: The superior labrum has normal shape and signal. There is slightly notched appearance of the anterior labrum which can represent normal anatomic variation. There is no convincing labral tear or paralabral cyst. The glenohumeral ligament complex is unremarkable. No capsular thickening or pericapsular edema. The quadrilateral space, suprascapular notch and spinoglenoid notch have a normal appearance. GLENOHUMERAL JOINT/MARROW: The humeral head is well positioned over the intact glenoid. Articular cartilage of the glenohumeral joint is preserved. No glenohumeral joint effusion. No humeral bone bruise, fracture or avascular necrosis. MR/MR shoulder RT wo con IMPRESSION: * Mild osteoarthritis of the acromioclavicular joint. The bone marrow edema at the joint could be related to the arthritis and/or repetitive microtrauma/stress related changes. No fracture. * A small interstitial tear within the distal supraspinatus tendon approaches but does not definitively involve the articular surface of the cuff. Otherwise, the rotator cuff tendons are unremarkable. * Long head of the biceps tendon is normal.
== END 2020-11-30 16:04 | disposition home or self-care (01) ==
LOC: HO.MRI 16:03
PROVIDERS: PCP Internal Medicine; Visit Provider Internal Medicine
DX: M25.511 Pain in right shoulder (principal)
CPT/HCPCS: 73221

== ENCOUNTER → 2020-12-08 08:40 | Outpatient (BNVA) | payer OTHER, SELFPAY | PROVIDERS: PCP Internal Medicine; Visit Provider Orthopaedic Surgery | DX: S43.431D Superior glenoid labrum lesion of right shoulder, subsequent encounter (principal) | CPT/HCPCS: 99212; J1100 ==

== ENCOUNTER → 2020-12-13 14:56 | Outpatient (REF) | payer OTHER, SELFPAY | LOC: HO.SL 14:56 | PROVIDERS: PCP Internal Medicine; Visit Provider Internal Medicine Pulmonary Disease | DX: G47.33 Obstructive sleep apnea (adult) (pediatric) (principal) | CPT/HCPCS: 95806 ==

== ENCOUNTER 2020-12-21 10:24 | Day surgery (SDC) | payer OTHER, SELFPAY ==
[2020-12-15 11:29] VITALS: BMI 34.0
--- NOTE | 2020-12-20 10:33 | HO.ANESPROP2 ---
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 cardiac w/u for atypical CP and SOB - echo and stress wnl [facility] Active Problems Active Problems: All Active Problems (Updated 12/15/20 @ 11:33 by Sherry Lopez RN) Dyspnea on exertion (Acute) Pulmonary nodules (Acute) Chest pain in adult (Acute) GUSTAVO (obstructive sleep apnea) (Acute) SLAP lesion of right shoulder (Acute) Obesity (BMI 30.0-34.9) (Acute) Left knee pain (Acute) Right shoulder pain (Acute) Juan Alberto Parkinson White pattern seen on electrocardiogram (Acute) Nocturia (Acute) Essential hypertension (Acute) Right kidney mass (Acute) Lung nodule (Acute) Past Medical History Medical History (Updated 12/21/20 @ 11:58 by Humera Skinner MD) Asthma Cholelithiasis COVID-19 vaccine series completed Essential hypertension History of COVID-19 Hypertension Left knee pain Lung nodule Nocturia Obesity (BMI 30.0-34.9) Right kidney mass Right shoulder pain Sleep apnea Juan Alberto Parkinson White pattern seen on electrocardiogram Family History Family History Son Heart murmur Daughter Heart disease Maternal Aunt Cancer Myocardial infarction Mother Cancer Father Heart disease Sister Substance use disorder Surgical History Surgical History (Updated 12/15/20 @ 11:15 by Sherry Lopez RN) History of cardiac catheterization History of laparoscopic cholecystectomy Social History Social History Housing: Apartment Are you a primary customer care team coach to a significant other at home: No Do you presently have visiting nurse or other home services: No Alcohol intake: former Patient Tobacco Use Status: Current everyday Tobacco user Tobacco use type: Cigarette Cigarettes Per Day: 11 Years Smoked: 25 Smoked in Last 30 Days: Yes e-Cigarette/Vaping Use: Never Used Patient Given Instructions on How to Stop Smoking: No (desire to quit at this time) Second Hand Smoke Exposure: No Use of substances other than those prescribed or required for medical reasons: No Have you been hit, kicked, punched, or otherwise hurt by someone within the past year? If so, by whom?: No Are you DNR?: No Advance Directives Information Provided: Yes (informatinal brochure mailed w/pre-op instructions) Advance Directives on File: No Recently lost weight without trying: No Eating poorly because of decreased appetite: No Nutrition Risks: No Nutritional Risk service: No Current occupational status: unemployed Meds Allergies Allergy/AdvReac Type Severity Reaction Status Date / Time bee pollen [BEE STINGS] Allergy Severe ANAPHYLAXIS Verified 11/16/20 12:13 Bleach (Sodium Hypochlorite) Allergy Severe DIFF Verified 11/16/20 12:13 [BLEACH (SODIUM BREATHING HYPOCHLORITE)] Fish Containing Products Allergy Severe HIVES Verified 11/16/20 12:13 Exam Exam Date and Time: December 20, 2020 1033 Height,Weight and Vital Signs: Height 5 ft 11 in Weight 110.677 kg Pertinent Lab Results Pertinent Lab Results: Laboratory Tests 04/20/20 11/09/20 10:29 13:11 WBC 9.8 Hgb 15.5 Hct 44.6 Plt Count 233 Sodium 139 Potassium 4.3 Chloride 107 Carbon Dioxide 25 BUN 8 L Creatinine 0.87 Narrative Narrative: EKG update DOS ECHO 04/2020 Conclusions: - Essentially normal study ? Exercise Stress 06/2020 Protocol: STEVE ? Max HR: 150 BPM? 85% of? Pred: 175 BPM Max BP: 174/074 mmHG Max Work Load: 10.1 METS ? Exercise stress test using Steve protocol total of 8 min 19 sec.? METS 10.10 and ?TAPHR up to 85%.? Pt tolerated well, denies any anginal sx.? EKG without any ?arrhythmias, no ischemic changes seen during exercise or in recovery. ?Normotensive response to exercise.? Test reviewed with Dr. Lilly.? Assessment and Plan Assessment Anesthesia Assessment: Chart Reviewed Documented by User: Humera Skinner MD 12/21/20 13:27 [facility] Active Problems Active Problems: All Active Problems (Updated 12/15/20 @ 11:33 by Sherry Lopez, RN) Dyspnea on exertion (Acute) Pulmonary nodules (Acute) Chest pain in adult (Acute) GUSTAVO (obstructive sleep apnea) (Acute). SLAP lesion of right shoulder (Acute) Obesity (BMI 30.0-34.9) (Acute) Left knee pain (Acute) Right shoulder pain (Acute) Juan Alberto Parkinson White pattern seen on electrocardiogram (Acute) Nocturia (Acute) Essential hypertension (Acute) Right kidney mass (Acute) Lung nodule (Acute) Asthma Past Medical History Medical History (Updated 12/21/20 @ 11:58 by Humera Skinner MD) Asthma Cholelithiasis COVID-19 vaccine series completed Essential hypertension History of COVID-19 Hypertension Left knee pain Lung nodule Nocturia Obesity (BMI 30.0-34.9) Right kidney mass Right shoulder pain Sleep apnea Juan Alberto Parkinson White pattern seen on electrocardiogram Family History Family History Son Heart murmur Daughter Heart disease Maternal Aunt Cancer Myocardial infarction Mother Cancer Father Heart disease Sister Substance use disorder Family history of problems with anesthesia: No Surgical History Surgical History (Updated 12/15/20 @ 11:15 by Sherry Lopez RN) History of cardiac catheterization History of laparoscopic cholecystectomy History of Problems with Anesthesia: No Social History Social History Housing: Apartment Are you a primary customer care team coach to a significant other at home: No Do you presently have visiting nurse or other home services: No Alcohol intake: former Patient Tobacco Use Status: Current everyday Tobacco user Tobacco use type: Cigarette Cigarettes Per Day: 11 Years Smoked: 25 Smoked in Last 30 Days: Yes e-Cigarette/Vaping Use: Never Used Patient Given Instructions on How to Stop Smoking: No (desire to quit at this time) Second Hand Smoke Exposure: No Use of substances other than those prescribed or required for medical reasons: No Have you been hit, kicked, punched, or otherwise hurt by someone within the past year? If so, by whom?: No Are you DNR?: No Advance Directives Information Provided: Yes (informatinal brochure mailed w/pre-op instructions) Advance Directives on File: No Recently lost weight without trying: No Eating poorly because of decreased appetite: No Nutrition Risks: No Nutritional Risk service: No Current occupational status: unemployed Meds Allergies Allergy/AdvReac Type Severity Reaction Status Date / Time bee pollen [BEE STINGS] Allergy Severe ANAPHYLAXIS Verified 11/16/20 12:13 Bleach (Sodium Hypochlorite) Allergy Severe DIFF Verified 11/16/20 12:13 [BLEACH (SODIUM BREATHING HYPOCHLORITE)] Fish Containing Products Allergy Severe HIVES Verified 11/16/20 12:13 Exam Height,Weight and Vital Signs: Height 5 ft 11 in Weight 110.677 kg Vital Signs Temp Pulse Resp BP Pulse Ox 12/21/20 10:48 97.6 F 80 16 140/100 H 97 Narrative Narrative: EKG update DOS ECHO 04/2020 Conclusions: - Essentially normal study ? Exercise Stress 06/2020 Protocol: STEVE ? Max HR: 150 BPM? 85% of? Pred: 175 BPM Max BP: 174/074 mmHG Max Work Load: 10.1 METS ? Exercise stress test using Steve protocol total of 8 min 19 sec.? METS 10.10 and ?TAPHR up to 85%.? Pt tolerated well, denies any anginal sx.? EKG without any ?arrhythmias, no ischemic changes seen during exercise or in recovery. ?Normotensive response to exercise.? Test reviewed with Dr. Lilly.? Date of Service: 12/21/20 Procedure(s): ECG 12 lead EKG Test Reason : preop Blood Pressure : / mmHG Vent. Rate : 072 BPM ? ? Atrial Rate : 072 BPM ?? P-R Int : 140 ms? QRS Dur : 096 ms ? ? QT Int : 364 ms ? ? ? P-R-T Axes : 005 005 017 degrees ?? QTc Int : 398 ms ? Normal sinus rhythm Normal ECG When compared with ECG of 20-APR-2020 09:09, No significant change was found ? 12/13/20: Home Sleep Study Mild GUSTAVO with snoring for 25% of sleep time. No significant hypoxemia recorded. Mild GUSTAVO may be treayed with conservative measures including weight reduction, position therapy, sleep hygiene Airway Mallampati Class: II TM Dist: >3cm Neck ROM: Full Loose/Missing/Broken Teeth: Yes (Many missing) Heart: RRR Lungs: CTAB Assessment and Plan Assessment Anesthesia Assessment: Anesthesia Plan Discussed Final Anesthetic Review Family History of Problems with Anesthesia: No History of Problems with Anesthesia: No NPO: Yes ASA Class: III Final Preanesthetic Review: No Changes in Pt Med Stat, Meds/Allgs Chart Reviewed, Consent Obtained/Reviewed and Anes Risks/Benef Reviewed Patient Risk: Intermediate Procedure Risk: Low Assessment/Block/Sedation in SS: Assess/Block/Sedation-SS Anesthetic Plan Anesthetic Plan: GA and Regional Block (Right Interscalene brachial plexus block) Disposition: Standard PACU
[2020-12-21] VITALS (11 sets, daily range): BP systolic 115–162; BP diastolic 77–100; PULSE 75–91; RESP 16–20; TEMP 36.1–36.4; O2SAT 92–98
--- NOTE | 2020-12-21 | ECG_ITS ---
Test Reason : preop Blood Pressure : / mmHG Vent. Rate : 072 BPM Atrial Rate : 072 BPM P-R Int : 140 ms QRS Dur : 096 ms QT Int : 364 ms P-R-T Axes : 005 005 017 degrees QTc Int : 398 ms Normal sinus rhythm Normal ECG When compared with ECG of 20-APR-2020 09:09, No significant change was found Referred By: Keya Ruiz Electronically Signed By:MARY GAN
--- NOTE | 2020-12-21 10:36 | PC.NURSE ---
patient shaved own right side of chest and arm and axillary area. no redness noted
[2020-12-21] MEDS: Lactated Ringers 1,000 ML 100 ML IVCONT (11:03)
--- NOTE | 2020-12-21 12:28 | MHC.SHP ---
Pre-Procedural Eval Section A Date of Service: 12/21/20 The patient is an INPATIENT: No Changes since office visit: Yes Patient answered all questions; No Cold of Flu in the past 2 weeks, No New Medical Problems and No Changes in Medication The History & Physical has been completed within 30 days and I have reviewed it.: Yes Section B Chief Complaint: pain in right shoulder Allergies: Allergies Allergy/AdvReac Type Severity Reaction Status Date / Time bee pollen [BEE STINGS] Allergy Severe ANAPHYLAXIS Verified 11/16/20 12:13 Bleach (Sodium Hypochlorite) Allergy Severe DIFF Verified 11/16/20 12:13 [BLEACH (SODIUM BREATHING HYPOCHLORITE)] Fish Containing Products Allergy Severe HIVES Verified 11/16/20 12:13 Plan I have reviewed the history and physical and performed a pertinent physical examination on my patient. No changes have occurred unless specified.
--- NOTE | 2020-12-21 13:56 | PM.OP ---
Brief Operative Note Date of Service: 12/21/20 Pre-op diagnosis: right shoulder SLAP tear Post-op diagnosis: same Procedure: Right shoulder biceps tenodesis with circumferentail labral debridement and sub-acromial bursectomy Implants: Jin and Nephew helacoil suture anchor Surgeon: Stan Warren MD Anesthesia: GETA and regional Was an Bore Miner Operator used for this Procedure?: Yes Bore Miner Operator: Lelia Alas Estimated blood loss (mL): 20 IV fluids (mL): 800 Pathology: none sent Condition: stable Disposition: PACU
--- NOTE | 2020-12-21 13:59 | P.OP_ITS ---
Operative Note Operative Note Date of Service: 12/21/20 Narrative: Pre-op diagnosis: right shoulder SLAP tear Post-op diagnosis: same Procedure: Right shoulder biceps tenodesis with circumferentail labral debridement and sub-acromial bursectomy Implants: Jin and Nephew helacoil suture anchor Surgeon: Stan Warren MD Anesthesia: GETA and regional Was an Photography Assistant used for this Procedure?: Yes Photography Assistant: Lelia Alas Estimated blood loss (mL): 20 IV fluids (mL): 800 Pathology: none sent Condition: stable Disposition: PACU Procedure in detail: Patient was brought to the operating room and placed the the beach chair position. All bony prominences were well padded and the limb was prepped and draped in standard sterile fashion. A time out was called to identify proper site, proper procedure and proper surgeon. IV antibiotics per weight were administered. I began by making a posterolateral stab incision with a 15 blade. A blunt trochar was placed into the glenohumeral joint and I insufflated the joint with saline and a 30 degree arthroscope was placed. I established an outside- in anterior portal just distal to the biceps tendon. I then began my inspection of the glenohumeral joint. There was synovitis in the anterior interval and adjacent to the posterior labrum. There was a type 2 SLAP tear. The cartilage of the glenohumeral joint was normal and there was no undersurface rotator cuff tear. Then established an outside in anterosuperior portal and used ablator to remove to synovitis. I then performed a circumferential labral debridement and probed SLAP tear. This was approximately 50% torn and I elected to perform arthroscopic biceps tenodesis. The biceps was tagged and then cautery was used to to not a my eyes it. I then used 1 Jin and Nephew Healicoil anchor and at the level of the bicipital groove just proximal to the subscapularis I dunked the biceps in to the suture anchor using standard technique. I then examined the tenodesis and I was happy with the stability and location. I then debrided the remaining torn portions of superior labrum with the ablator. I then took my final intraoperative pictures and then turned my attention to subacromial space. I then removed the trochar and entered the subacromial space. A direct lateral portal was then established and I performed a bursectomy. The cuff was then examined. The cuff was intact without tearing. There was some [id number] bursitis which was removed with a shaver. Once I was satisfied with the repair final images were captured and I removed all instrumentation. Portals were closed with nylon. Patient was placed in an abduction sling, extubated and brought to the recovery room in stable condition. There were no known complications.
[2020-12-21] MEDS: Acetaminophen 325 MG TABLET 975 MG PO (14:20)
[2020-12-21] MEDS: Ketorolac Tromethamine 30 MG/ML VIAL IVPUSH (14:21)
[2020-12-21] MEDS: HYDROmorphone HCl 0.5 MG/0.5 ML SYRINGE IVPUSH (15:06)
== END 2020-12-21 16:13 | disposition home or self-care (01) ==
PROVIDERS: PCP Internal Medicine; Visit Provider Orthopaedic Surgery
PROC: (CPT 29805; principal; 2020-12-21 12:50)
DX: S43.431A Superior glenoid labrum lesion of right shoulder, initial encounter (principal); M25.511 Pain in right shoulder; X50.9XXA Other and unspecified overexertion or strenuous movements or postures, initial encounter; X50.3XXA Overexertion from repetitive movements, initial encounter; Y93.89 Activity, other specified; Y92.9 Unspecified place or not applicable; Y99.8 Other external cause status; J45.909 Unspecified asthma, uncomplicated; I10 Essential (primary) hypertension; I45.6 Pre-excitation syndrome; R91.1 Solitary pulmonary nodule; Z79.51 Long term (current) use of inhaled steroids; Z79.899 Other long term (current) drug therapy; Z86.16 Personal history of COVID-19; Z87.01 Personal history of pneumonia (recurrent); F17.210 Nicotine dependence, cigarettes, uncomplicated
CPT/HCPCS: 29828; 29826; 93005; C1713; J0171; J0690; J1100; J1170; J1885; J2250; J2405; J3010

== ENCOUNTER 2020-12-26 20:23 | Emergency (ER) | payer OTHER, SELFPAY ==
--- NOTE | ~2020-12-26 | XR_ITS ---
EXAMINATION: XR CHEST CLINICAL INFORMATION: Postop shortness breath COMPARISON: CT chest dated 08/29/2020 TECHNIQUE: Frontal view of the chest was obtained. FINDINGS: Streaky opacity within the right lower lung. Left lung clear. Normal heart size and pulmonary vascularity. No acute or suspicious osseous abnormalities. XR/XR chest 1V IMPRESSION: Right lower lobe streaky airspace opacities could represent an infiltrate. Radiographic follow-up to resolution will be required.
[2020-12-26 20:38] VITALS: PULSE 75; RESP 20; TEMP 37.4; O2SAT 94; BMI 34.8
[2020-12-26 23:30] VITALS: BP 133/91; PULSE 78; RESP 20; O2SAT 96
--- NOTE | 2020-12-26 23:38 | ED_ITS ---
HPI - Fever General Chief Complaint: Fever Stated Complaint: Fever/Post op Time Seen by Provider: 12/26/20 23:36 Source: patient Mode of arrival: ambulatory Limitations: no limitations History of Present Illness HPI Narrative: Patient is postop rotator cuff surgery 12/21 been coughing for last 2 days with slight mucopurulent phlegm had temperature 101.9 degrees at home no increased pain in the right shoulder no skin redness slight shortness of breath and deep breathing. Called his orthopedist broderick who advised him to go to the hospital for evaluation Related Data Previous Rx's Medication Instructions Recorded acetaminophen 500 mg tablet 500 mg PO Q6H PRN #20 tab 04/20/20 (Tylenol Extra Strength) umeclidinium 62.5 mcg-vilanterol 1 inh INHALATION DAILY 30 Days #1 04/28/20 25 mcg/actuation powdr for ea inhalation (Anoro Ellipta) furosemide 20 mg tablet (Lasix) 20 mg PO QAM 30 Days #30 tab 05/17/20 ibuprofen 800 mg tablet 800 mg PO Q8H PRN 30 Days #90 tab 11/16/20 amlodipine 2.5 mg tablet 2.5 mg PO DAILY #30 tab 12/18/20 oxycodone-acetaminophen 5 mg-325 1 tab PO Q6H PRN 7 Days #28 tab 12/21/20 mg tablet (Percocet) codeine 10 mg-guaifenesin 100 mg/5 10 ml PO Q6-8H PRN #237 ml 12/27/20 mL oral liquid levofloxacin 750 mg tablet 750 mg PO DAILY 7 Days #7 tab 12/27/20 Allergies Allergy/AdvReac Type Severity Reaction Status Date / Time bee pollen [BEE STINGS] Allergy Severe ANAPHYLAXIS Verified 11/16/20 12:13 Bleach (Sodium Hypochlorite) Allergy Severe DIFF Verified 11/16/20 12:13 [BLEACH (SODIUM BREATHING HYPOCHLORITE)] Fish Containing Products Allergy Severe HIVES Verified 11/16/20 12:13 Review of Systems Review of Systems: Yes all other systems are reviewed and are negative PMFSH Past Medical History Medical History Asthma Cholelithiasis COVID-19 vaccine series completed Essential hypertension History of COVID-19 Hypertension Left knee pain Lung nodule Nocturia Obesity (BMI 30.0-34.9) Right kidney mass Right shoulder pain Sleep apnea Juan Alberto Parkinson White pattern seen on electrocardiogram Surgical History History of cardiac catheterization History of laparoscopic cholecystectomy Family History Family History Son Heart murmur Daughter Heart disease Maternal Aunt Cancer Myocardial infarction Mother Cancer Father Heart disease Sister Substance use disorder Social History Social History Housing: Apartment Are you a primary care specialist to a significant other at home: No Do you presently have visiting nurse or other home services: No Alcohol intake: former Patient Tobacco Use Status: Current everyday Tobacco user Tobacco use type: Cigarette Cigarettes Per Day: 11 Years Smoked: 25 e-Cigarette/Vaping Use: Never Used Second Hand Smoke Exposure: No Advance Directives: No service: No Current occupational status: unemployed Physical Exam Vital Signs: Vital Signs: Last Vital Signs Temp 99.3 F 12/26/20 20:38 Pulse 78 12/26/20 23:30 Resp 20 12/26/20 23:30 BP 133/91 H 12/26/20 23:30 Pulse Ox 96 12/26/20 23:30 Body Mass Index 34.8 Appearance: Alert. Oriented X3. No acute distress. ENT: Pharynx normal. Oral Mucosa moist Neck: Normal inspection. Neck supple. CVS: Normal heart rate and rhythm. Pulses normal. Respiratory: No respiratory distress. Equal air entry bilateral, no wheezing /rales/rhonchi Abdomen: Soft and nontender. Bowel sounds are present, Skin: Skin warm and dry. Normal skin color. Normal skin turgor. Extremities: No lower extremity edema. No calf tenderness right shoulder postop incision site looks healthy no signs of infection or pus discharge Neuro: Oriented X 3. MDM - Fever MDM Narrative Medical decision making narrative: Patient chest x-ray showed early infiltrate on the right side will discharge patient home on Levaquin. COVID-19 was negative Lab Data Attestation: I reviewed the patient's lab results. Result diagrams: 12/26/20 23:36 12/26/20 23:36 Labs: Lab Results 12/26/20 12/26/20 12/26/20 Range/Units 23:36 23:36 23:55 WBC 10.3 (4.8-10.8) X10*3/uL RBC 4.66 (4.60-5.80) X10*6/uL Hgb 14.8 (14.0-18.0) g/dl Hct 42.2 (42-52) % MCV 90.6 (80-98) fL MCH 31.8 (27.0-33.0) pg MCHC 35.1 (31.0-36.0) g/dl RDW 12.8 (11.0-16.0) % Plt Count 276 (160-400) X10*3/uL MPV 9.9 (9.4-12.4) fL Immature Gran % (Auto) 0.6 H (0.0-0.4) % Neut % (Auto) 60.5 (45-73) % Lymph % (Auto) 21.3 (20-40) % [place] % (Auto) 12.5 H (2-11) % Eos % (Auto) 4.4 H (0-4) % Baso % (Auto) 0.7 (0-2) % Lymph # (Auto) 2.2 (1.2-4.9) X10*3/uL [place] # (Auto) 1.3 H (0.1-1.2) X10*3/uL Eos # (Auto) 0.5 H (0.0-0.4) X10*3/uL Baso # (Auto) 0.1 (0.0-0.2) X10*3/uL Abs Immat Gran (auto) 0.06 H (0.00-0.03) X10*3/uL Absolute Neuts (auto) 6.3 (2.0-8.3) X10*3/uL Absolute Nucleated RBC 0.000 (0.0-0.012) X10*3/uL Nucleated RBC % (auto) 0.0 (0.0-0.2) /100WBC Sodium 138 (135-145) mmol/L Potassium 4.2 (3.3-5.1) mmol/L Chloride 108 (96-108) mmol/L Carbon Dioxide 23 (22-29) mmol/L Anion Gap 11 L (12-20) BUN 6 L (9-16) mg/dL Creatinine 0.84 (0.5-1.4) mg/dL Estim Creat Clear Calc 142.2 Estimated GFR > 60 Random Glucose 108 (60-115) mg/dL Calcium 8.9 D (8.4-10.2) mg/dL Total Bilirubin 0.9 (0.0-1.0) mg/dL AST 17 (5-37) U/L ALT 32 (0-40) U/L Alkaline Phosphatase 77 (39-117) U/L Total Protein 7.2 (6.5-8.0) g/dL Albumin 4.3 (3.5-5.0) g/dL COVID-19 (FLASH) Negative (Negative) COVID-19 Clin Com See Note Discharge Plan Discharge Clinical Impression: Pneumonia Qualifiers: Pneumonia type: due to unspecified organism Laterality: right Lung location: lower lobe of lung Qualified Code(s): J18.9 - Pneumonia, unspecified organism Patient Disposition: Home, Self-Care Instructions: Pneumonia (ED) Additional Instructions: Take antibiotic and cough syrup as prescribed Report to the ER/PCP if worsening of the cough Prescriptions: New levofloxacin 750 mg tablet 750 mg PO DAILY 7 Days Qty: 7 RF: 0 codeine-guaifenesin 10-100 mg/5 mL liquid 10 ml PO Q6-8H PRN (Reason: cough) Qty: 237 RF: 0 No Action amlodipine 2.5 mg tablet 2.5 mg PO DAILY Qty: 30 RF: 6 acetaminophen [Tylenol Extra Strength] 500 mg tablet 500 mg PO Q6H PRN (Reason: pain or fever) Qty: 20 RF: 0 oxycodone-acetaminophen [Percocet] 5-325 mg tablet 1 tab PO Q6H PRN (Reason: pain (scale score 4-6)) 7 Days Qty: 28 RF: 0 ibuprofen 800 mg tablet 800 mg PO Q8H PRN (Reason: pain) 30 Days Qty: 90 RF: 0 Anoro Ellipta 62.5-25 mcg/actuation blister with device 1 inh inhalation DAILY 30 Days Qty: 1 RF: 6 furosemide [Lasix] 20 mg tablet 20 mg PO QAM 30 Days Qty: 30 RF: 6 Interventions: ED Discharge Assessment Last Done: 12/27/20 01:04 Discharge Date/Time: 12/27/20 01:05 Print Language: Sammarinese
[2020-12-26 23:39] LABS: MANUAL DIFF FLAG NO
[2020-12-26 23:41] LABS: Basophils Absolute Auto 0.1 X10*3/uL (0.0-0.2); Basophils Percent Auto 0.7 % (0-2); Eosinophils Absolute Auto 0.5 X10*3/uL (0.0-0.4); Eosinophils Percent Auto 4.4 % (0-4); Hematocrit 42.2 % (42-52); Hemoglobin 14.8 g/dl (14.0-18.0); Imm Gran Abs Auto 0.06 X10*3/uL (0.00-0.03); Imm Gran Pct Auto 0.6 % (0.0-0.4); Lymphocytes Absolute Auto 2.2 X10*3/uL (1.2-4.9); Lymphocytes Percent Auto 21.3 % (20-40); Mean Corpuscular HGB Conc 35.1 g/dl (31.0-36.0); Mean Corpuscular Hemoglobin 31.8 pg (27.0-33.0); Mean Corpuscular Volume 90.6 fL (80-98); Mean Platelet Volume 9.9 fL (9.4-12.4); Monocytes Absolute Auto 1.3 X10*3/uL (0.1-1.2); Monocytes Percent Auto 12.5 % (2-11); Neutrophils Absolute Auto 6.3 X10*3/uL (2.0-8.3); Neutrophils Percent Auto 60.5 % (45-73); Platelet Count 276 X10*3/uL (160-400); Red Blood Count 4.66 X10*6/uL (4.60-5.80); Red Cell Distribution Width 12.8 % (11.0-16.0); White Blood Count 10.3 X10*3/uL (4.8-10.8)
[2020-12-26 23:56] LABS: Alanine Aminotransferase 32 U/L (0-40); Albumin Level 4.3 g/dL (3.5-5.0); Alkaline Phosphatase 77 U/L (39-117); Anion Gap 11 (12-20); Aspartate Amino Transferase 17 U/L (5-37); Bilirubin Total 0.9 mg/dL (0.0-1.0); Blood Urea Nitrogen 6 mg/dL (9-16); Calcium 8.9 mg/dL (8.4-10.2); Carbon Dioxide 23 mmol/L (22-29); Chloride 108 mmol/L (96-108); Creatinine Clr Calc Pharmacy 142.2; Estimated Glomerular Filt Rate > 60; Glucose Random 108 mg/dL (60-115); Potassium 4.2 mmol/L (3.3-5.1); Sodium 138 mmol/L (135-145); Total Protein 7.2 g/dL (6.5-8.0)
[2020-12-27 00:17] LABS: COVID-19 Test Negative (Negative); IDNOW Serial# 9DD0AD1C
[2020-12-27] MEDS: guaiFEN/Codeine SF 200/20/10ML 10 ML LIQUID PO (00:53)
[2020-12-27] MEDS: levoFLOXacin 750 MG TABLET PO (00:53)
== END 2020-12-27 01:05 | disposition home or self-care (01) ==
PROVIDERS: Emergency Provider Internal Medicine; PCP Internal Medicine
DX: J18.9 Pneumonia, unspecified organism (principal); I10 Essential (primary) hypertension; J45.909 Unspecified asthma, uncomplicated; Z98.890 Other specified postprocedural states; Z20.822 Contact with and (suspected) exposure to COVID-19
CPT/HCPCS: 36415; 71045; 80053; 85025; 87635; 99283

== ENCOUNTER 2021-01-02 08:12 | Outpatient (REF) | payer OTHER, SELFPAY ==
--- NOTE | ~2021-01-02 | XR_ITS ---
EXAMINATION: XR SHOULDER, RIGHT CLINICAL INFORMATION: Right shoulder pain. COMPARISON: 07/18/2020 right shoulder radiographs. TECHNIQUE: AP external rotation, Grashey, scapular Y, and axillary views of the right shoulder. FINDINGS: A bone anchor is seen in the right humeral head. There is no acute fracture or dislocation. The joint spaces are unremarkable. The soft tissues are unremarkable. XR/XR shoulder RT min 2V IMPRESSION: Right humeral head bone anchor without other significant abnormality.
== END 2021-01-02 08:13 | disposition home or self-care (01) ==
LOC: HO.HOSX 08:12
PROVIDERS: Visit Provider Physician Assistant
DX: S46.211D Strain of muscle, fascia and tendon of other parts of biceps, right arm, subsequent encounter (principal); Z98.890 Other specified postprocedural states
CPT/HCPCS: 73030; 99212

== ENCOUNTER 2021-01-10 15:45 | Outpatient (REF) | payer OTHER, SELFPAY ==
--- NOTE | ~2021-01-10 | XR_ITS ---
EXAMINATION: XR CHEST 2 VIEWS CLINICAL INFORMATION: Question right lower lobe infiltrate. COMPARISON: Prior chest radiographs, most recently 01/10/2021. TECHNIQUE: Frontal and lateral views of the chest were obtained. FINDINGS: The heart, great vessels, pulmonary vasculature and mediastinum are normal. The lungs show no focal infiltrate, effusion or pneumothorax. The previously seen right base infiltrate has resolved in the interim. There is no acute osseous abnormality. There are upper abdominal surgical clips. XR/XR chest 2V IMPRESSION: No active cardiopulmonary disease.
== END 2021-01-10 15:46 | disposition home or self-care (01) ==
LOC: HO.XRAY 15:45
PROVIDERS: Visit Provider Internal Medicine
DX: J18.9 Pneumonia, unspecified organism (principal)
CPT/HCPCS: 71046

== ENCOUNTER → 2021-01-19 11:26 | Outpatient (BNVA) | payer OTHER, SELFPAY | PROVIDERS: PCP Internal Medicine; Visit Provider Internal Medicine Pulmonary Disease | DX: G47.33 Obstructive sleep apnea (adult) (pediatric) (principal); R91.8 Other nonspecific abnormal finding of lung field; R06.00 Dyspnea, unspecified | CPT/HCPCS: 99212 ==

== ENCOUNTER → 2021-01-30 15:39 | Outpatient (BNVA) | payer OTHER, SELFPAY | PROVIDERS: PCP Internal Medicine; Visit Provider Physician Assistant | DX: Z98.890 Other specified postprocedural states (principal) | CPT/HCPCS: 99212 ==

== ENCOUNTER → 2021-03-02 13:41 | Outpatient (BNVA) | payer OTHER, SELFPAY | PROVIDERS: PCP Internal Medicine; Visit Provider Internal Medicine Pulmonary Disease | DX: J45.30 Mild persistent asthma, uncomplicated (principal); G47.33 Obstructive sleep apnea (adult) (pediatric); R91.1 Solitary pulmonary nodule | CPT/HCPCS: 99212 ==

== ENCOUNTER 2021-03-06 12:00 | Outpatient (RCR) | payer OTHER, SELFPAY ==
--- NOTE | 2020-12-30 16:24 | MHC.PT.EP ---
[facility] [place] Office [place] Office [place] Office [address] Kelsie Roth [address] [phone] F: [phone] F: [phone] F: [phone] F: [phone] Physical Therapy Plan of Care Date of Evaluation: Date of Surgery: 12/21/2020 Diagnosis: s/p R biceps tenodesis with circumferential labral debridement and sub-acromial bursectomy Assessment: Patient is a 45 year old male presenting to PT s/p R shoulder biceps tenodesis with circumferential labral debridement and sub-acromial bursectomy on 12/21/2020. He presents today with impairments in pain, ROM, shoulder strength, elbow strength, periscapular strength, and posture. 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 Clinical presentation today is most consistent with signs and sx associated with s/p R shoulder biceps tenodesis with circumferential labral debridement and sub-acromial bursectomy on 12/21/2020 and pt will benefit from skilled PT to address the following problems and impairments noted upon evaluation: pain, ROM, shoulder strength, periscapular strength, elbow strength, and posture. These problems limit the patient with the following functional activities: ADLs, reaching, lifting, sleep, and work. Co-morbidities of asthma, HTN, cardiac hx (Juan Alberto Parkinson White pattern seen on electrocardiogram) were identified and taken into considerations of plan of care. Pt was educated on HEP, role of PT, prognosis, POC. Frequency and Duration: The patient will be seen 2x week x 24 weeks Short Term Goals: Pt will demonstrate compliance with the sling in 1 visit. Pt will demonstrate full elbow PROM in 4 weeks. Pt will demonstrate shoulder full PROM in all directions in 8 weeks. Pt will demonstrate shoulder full AROM in all directions in 12 weeks. Pt will demonstrate improved shoulder strength to 5/5 MMT in 20 weeks. Pt will demonstrate improved elbow strength to 5/5 MMT in 20 weeks. Imaging Clerk Goals: Pt will demonstrate ability to complete all ADLs without pain or limitation in 24 weeks to allow return to independence with these activities. Pt will demonstrate ability to return to work pending MD clearance in 24 weeks to allow return to PLOF. Pt will demonstrate ability to perform all reaching activities including OH in 24 weeks without limitation. Pt will demonstrate ability to lift all household items in 24 weeks without onset of pain or compensation to allow return to PLOF. Treatment Plan: Modalities to reduce pain, spasms and effusion. Manual therapy to restore motion and function. Therapeutic exercise to improve strength and flexibility. Neuromuscular re-education for posture and balance. Therapeutic activities to return to functional activities of daily living. Electronically signed by: Bonnie Heath, PT, DPT, ATC Please sign and return to therapist. Thank you for your referral.
--- NOTE | 2021-05-16 14:22 | MHC.PT.DC ---
[facility] [place] Office [place] Office [place] Office [address] Kelsie Roth 140 [facility] [phone] F: [phone] F: [phone] F: [phone] F: [phone] Physical Therapy Discharge Report Diagnosis: s/p R biceps tenodesis with circumferential labral debridement and sub-acromial bursectomy Date of Surgery: 12/21/2020 Date of Evaluation: 12/30/20 Date of Discharge: 05/16/21 Treatments to Date: 14 Cancellations to Date: 7 No Shows to Date: 3 Discharge Status: Visit Non-compliance Discharge Summary: Pt has unfortunately no showed and cancelled his final 7 appts. Pt status unknown at this time. Electronically signed by: Bonnie Heath, PT, DPT, ATC Please sign and return to therapist. Thank you for your referral.
== END 2021-05-16 14:22 | disposition home or self-care (01) ==
LOC: HO.PT 12:00
PROVIDERS: PCP Internal Medicine; Visit Provider Physician Assistant
DX: S46.211A Strain of muscle, fascia and tendon of other parts of biceps, right arm, initial encounter (principal)
CPT/HCPCS: 97014; 97110; 97140; 97161; 97530

== ENCOUNTER 2021-03-18 15:47 | Emergency (ER) | payer OTHER, SELFPAY | END 2021-03-18 18:21 | disposition left against medical advice (07) | PROVIDERS: Emergency Provider Emergency Medicine; PCP Internal Medicine | DX: Z20.822 Contact with and (suspected) exposure to COVID-19 (principal) ==

== ENCOUNTER 2021-06-05 12:26 | Outpatient (REF) | payer OTHER, SELFPAY ==
--- NOTE | ~2021-06-05 | XR_ITS ---
EXAMINATION: XR SHOULDER, RIGHT CLINICAL INFORMATION: Pain COMPARISON: Previous x-ray December 2020 TECHNIQUE: Three views of the right shoulder. FINDINGS: Bone alignment is normal. No fracture or dislocation is seen. There is a surgical tack or anchor projecting over the humeral head. The glenohumeral joint is normal. There is mild arthritis at the acromioclavicular joint. Soft tissues are unremarkable. XR/XR shoulder RT min 2V IMPRESSION: Surgical tack or anchor in the right humeral head. Mild arthritis at the acromioclavicular joint.
== END 2021-06-05 12:27 | disposition home or self-care (01) ==
LOC: HO.HOSX 12:26
PROVIDERS: PCP Internal Medicine; Visit Provider Physician Assistant
DX: M25.511 Pain in right shoulder (principal)
CPT/HCPCS: 73030; 99212

== ENCOUNTER → 2021-07-17 12:42 | Outpatient (BNVA) | payer OTHER, SELFPAY | PROVIDERS: PCP Internal Medicine; Visit Provider Physician Assistant | DX: M25.511 Pain in right shoulder (principal) | CPT/HCPCS: 99212 ==

== ENCOUNTER 2021-08-09 17:00 | Outpatient (RCR) | payer OTHER, SELFPAY ==
--- NOTE | 2021-08-04 15:51 | MHC.PT.EP ---
[facility] [place] Office [place] Office [place] Office [address] Kelsie Roth [address] [phone] F: [phone] F: [phone] F: [phone] F: [phone] Physical Therapy Plan of Care Date of Evaluation: Date of Surgery: 12/21/20 Diagnosis: R shoulder pain following s/p R biceps tenodesis with circumferential labral debridement and sub-acromial bursectomy on 12/21/20 Assessment: pt's signs and symptoms consistent w/ biceps tear vs. biceps strain. pt did have audible pop that was so painful it brought him to tears. pt has not had MRI as of time of eval. pt presents to physical therapy with pain, decreased range of motion, decreased strength, impaired functional mobility, impaired postural awareness, and gait deviations. pt is a good candidate for skilled PT due to age, potential remediation of impairments, typical disease/condition progression and prognosis, comorbidities, and motivation. pt would benefit from tailored strengthening and stretching exercise program, functional training, gait training, postural re-training, neuromuscular re-education, modalities as needed for pain, equipment safety demonstration. Frequency and Duration: The patient will be seen 2x/wk for 4 wks Short Term Goals: pt will be I w/ HEP to promote self-management of condition. pt will improve R biceps strength by 1 MMT grade to promote ease in carrying groceries. Fpc Goals: pt will report a statistically significant improvement in self-reported outcome measure, SPADI, to promote return to PLOF. pt will demo 15# overhead lifting w/ proper lifting mechanics and no verbal cueing. Treatment Plan: Modalities to reduce pain, spasms and effusion. Manual therapy to restore motion and function. Therapeutic exercise to improve strength and flexibility. Neuromuscular re-education for posture and balance. Therapeutic activities to return to functional activities of daily living. Electronically signed by: Camille Real PT, DPT Please sign and return to therapist. Thank you for your referral.
--- NOTE | 2021-08-29 13:40 | MHC.PT.DC ---
[facility] [place] Office [place] Office [place] Office [address] Kelsie Roth 140 [facility] [phone] F: [phone] F: [phone] F: [phone] F: [phone] Physical Therapy Discharge Report Diagnosis: R shoulder pain following s/p R biceps tenodesis with circumferential labral debridement and sub-acromial bursectomy on 12/21/20 Date of Surgery: 12/21/20 Date of Evaluation: 08/04/21 Date of Discharge: 08/29/21 Treatments to Date: 3 Cancellations to Date: 1 No Shows to Date: 2 Discharge Status: Visit Non-compliance Discharge Summary: The patient has not been seen in this office or followed up with any further appointments in nearly three weeks. Per [facility] policy he is being discharged for visit non-compliance. Electronically signed by: Camille Real PT, DPT Please sign and return to therapist. Thank you for your referral.
== END 2021-08-29 13:40 | disposition home or self-care (01) ==
LOC: HO.PT 17:00
PROVIDERS: PCP Internal Medicine; Visit Provider Physician Assistant
DX: Z98.890 Other specified postprocedural states (principal)
CPT/HCPCS: 97014; 97110; 97161

== ENCOUNTER 2022-04-11 22:56 | Emergency (ER) | payer OTHER, SELFPAY ==
--- NOTE | ~2022-04-11 | XR_ITS ---
EXAMINATION: XR CHEST CLINICAL INFORMATION: Chest pain COMPARISON: 01/10/2021 TECHNIQUE: 2 views of the chest were obtained. FINDINGS: The lungs are clear with no focal consolidation. No evidence of pneumothorax, pulmonary edema, or pleural effusions. The cardiomediastinal silhouette is unremarkable. No acute osseous findings. XR/XR chest 2V IMPRESSION: No acute cardiopulmonary findings.
[2022-04-11 23:16] VITALS: BP 127/80; PULSE 85; RESP 20; TEMP 36.8; O2SAT 94; BMI 33.0
--- NOTE | 2022-04-11 23:20 | ECG_ITS ---
Test Reason : sob Blood Pressure : / mmHG Vent. Rate : 084 BPM Atrial Rate : 084 BPM P-R Int : 114 ms QRS Dur : 090 ms QT Int : 348 ms P-R-T Axes : 048 003 018 degrees QTc Int : 411 ms Sinus rhythm with frequent Premature ventricular complexes Abnormal ECG When compared with ECG of 21-DEC-2020 10:53, Premature ventricular complexes are now Present Sinus rhythm is now with ventricular escape complexes Referred By: Generic ED Physician Electronically Signed By:ROMEO ZAVALA
--- NOTE | 2022-04-11 23:43 | ED.ASTHMA ---
HPI - Asthma General Chief Complaint: Asthma Stated Complaint: asthma Time Seen by Provider: 04/11/22 23:41 Source: patient Mode of arrival: ambulatory Limitations: no limitations History of Present Illness HPI Narrative: Patient with asthma been sick for last few days has nebulizer but ran out of the medication use inhaler multiple times but still feeling short of breath with wheezing on arrival patient was saturating 94% on room air no fever no chills cough is mostly dry Related Data Previous Rx's Medication Instructions Recorded acetaminophen 500 mg tablet 500 mg PO Q6H PRN pain or fever 04/20/20 (Tylenol Extra Strength) #20 tabs albuterol sulfate 90 mcg/actuation 2 inh inhalation Q6H PRN shortness 12/28/20 breath activated powder inhaler of breath or wheezing 30 days #1 ea (ProAir RespiClick) ipratropium 0.5 mg-albuterol 3 mg 3 ml inhalation Q4-6H PRN wheezing 01/19/21 (2.5 mg base)/3 mL nebulization 30 days #180 mL soln amoxicillin 500 mg tablet 500 mg PO BID 7 days #14 tabs 08/23/21 bisacodyl 5 mg tablet,delayed 10 mg PO ONCE 1 day #2 tabs 08/24/21 release (Dulcolax (bisacodyl)) polyethylene glycol 3350 17 238 g PO ONCE 1 day #238 grams 08/24/21 gram/dose oral powder (Miralax) escitalopram oxalate 5 mg tablet 5 mg PO DAILY 90 days #90 tabs 10/19/21 amlodipine 2.5 mg tablet 2.5 mg PO DAILY 90 days #90 tabs 12/24/21 albuterol sulfate 2.5 mg/3 mL 2.5 mg (3 mL) inhalation Q4-6H PRN 04/12/22 (0.083 %) solution for nebulization shortness of breath or wheezing #90 mL azithromycin 250 mg tablet 250 mg PO DAILY 4 days #4 tabs 04/12/22 (Zithromax Z-Latrell) cefuroxime axetil 500 mg tablet 500 mg PO BID #20 tabs 04/12/22 codeine 10 mg-guaifenesin 100 mg/5 10 ml PO Q6H PRN cough #237 mL 04/12/22 mL oral liquid prednisone 20 mg tablet 40 mg PO DAILY #10 tabs 04/12/22 Allergies Allergy/AdvReac Type Severity Reaction Status Date / Time bee pollen [BEE STINGS] Allergy Severe ANAPHYLAXIS Verified 08/28/21 12:14 Bleach (Sodium Hypochlorite) Allergy Severe DIFF Verified 08/28/21 12:14 [BLEACH (SODIUM BREATHING HYPOCHLORITE)] Fish Containing Products Allergy Severe HIVES Verified 08/28/21 12:14 Review of Systems Review of Systems: Yes all other systems are reviewed and are negative [facility] Past Medical History Medical History Asthma Cholelithiasis COVID-19 vaccine series completed Essential hypertension TERRY (generalized anxiety disorder) History of COVID-19 Hypertension Insomnia Left knee pain Lung nodule Nocturia Obesity (BMI 30.0-34.9) Physical exam Pneumonia Right kidney mass Right shoulder pain Sleep apnea Juan Alberto Parkinson White pattern seen on electrocardiogram Surgical History History of cardiac catheterization History of laparoscopic cholecystectomy S/P arthroscopy of right shoulder Family History Family History Son Heart murmur Daughter Heart disease Maternal Aunt Cancer Myocardial infarction Mother Cancer Father Heart disease Substance use disorder Sister Substance use disorder Social History Social History Housing: Apartment Are you a primary patient care technician instructor to a significant other at home: No Do you presently have visiting nurse or other home services: No Alcohol intake: former Patient Tobacco Use Status: Current everyday Tobacco user Tobacco use type: Cigarette Cigarettes Per Day: 10 Years Smoked: 25 e-Cigarette/Vaping Use: Never Used Second Hand Smoke Exposure: No Advance Directives: No service: No Current occupational status: unemployed Current occupation: rt handed Cognitive needs: No Hearing needs: No Vision needs: No Physical Exam Vital Signs: Vital Signs: Last Vital Signs Temp 98.3 F 04/11/22 23:16 Pulse 74 04/12/22 00:06 Resp 18 04/12/22 00:06 BP 127/80 04/11/22 23:16 Pulse Ox 94 04/11/22 23:16 O2 Del Method 04/11/22 23:16 BMI result Body Mass Index 33.0 Appearance: Alert. Oriented X3. In mild respiratory distress Eyes: PERRLA, No Nystagmus ENT: Pharynx normal. Oral Mucosa moist Neck: Normal inspection. Neck supple. CVS: Normal heart rate and rhythm. Pulses normal. Respiratory: Mild respiratory distress. Equal air entry bilateral, bilateral wheezing and rhonchi no rales Abdomen: Soft and nontender. Bowel sounds are present, no mass palpable, no CVA tenderness Skin: Skin warm and dry. Normal skin color. Normal skin turgor. Extremities: No lower extremity edema. No calf tenderness Neuro: Oriented X 3. No motor deficit. No sensory deficit.No cerebellar signs , cranial nerves II-XII intact Medications Administered Discontinued Medications Generic Name Dose Route Start Last Admin Trade Name Freq PRN Reason Stop Dose Admin Albuterol Sulfate 2.5 mg 04/11/22 23:52 04/12/22 00:03 Albuterol Sulfate (0.083%) 2.5 Mg/3 Ml Vial.Neb INHALE 04/11/22 23:53 2.5 mg ONCE ONE Administration Albuterol Sulfate 5 mg 04/12/22 00:53 04/12/22 01:08 Albuterol Sulfate (0.083%) 2.5 Mg/3 Ml Vial.Neb INHALE 04/12/22 00:54 5 mg ONCE ONE Administration Albuterol/Ipratropium 3 ml 04/11/22 23:52 04/12/22 00:03 Albuterol/Iprat 2.5/0.5mg 3 Ml Ampul.Neb INHALE 04/11/22 23:53 3 ml ONCE ONE Administration Azithromycin 500 mg 04/11/22 23:54 04/12/22 00:02 Azithromycin 500 Mg Tablet PO 04/11/22 23:55 500 mg ONCE ONE Administration Benzonatate 200 mg 04/12/22 00:53 04/12/22 01:21 Benzonatate 100 Mg Capsule PO 04/12/22 00:54 200 mg ONCE ONE Administration Cefuroxime Axetil 500 mg 04/11/22 23:54 04/12/22 00:02 Cefuroxime Axetil 500 Mg Tablet PO 04/11/22 23:55 500 mg ONCE ONE Administration Guaifenesin/Codeine Phosphate 10 ml 04/11/22 23:52 04/12/22 00:02 Guaifen/Codeine Sf 200/20/10ml 10 Ml Liquid PO 04/11/22 23:53 10 ml ONCE ONE Administration Prednisone 60 mg 04/11/22 23:52 04/12/22 00:24 Prednisone 20 Mg Tablet PO 04/11/22 23:53 60 mg ONCE ONE Administration Medical Decision Making Medical Decision Making [facility] Narrative: Patient asthmatic bronchitis with bilateral wheezing requiring multiple nebulizing felt better after treatment will discharge patient home on prednisone and Zithromax Lab Data [facility] Lab Attestation statement: I reviewed the patient's lab results. 04/11/22 23:28 04/11/22 23:28 Labs: Lab Results 04/11/22 04/11/22 04/11/22 Range/Units 23:28 23:28 23:28 WBC 17.6 H (4.8-10.8) X10*3/uL RBC 4.45 L (4.60-5.80) X10*6/uL Hgb 14.0 (14.0-18.0) g/dl Hct 40.2 L (42.0-52.0) % MCV 90.3 (80.0-98.0) fL MCH 31.5 (27.0-33.0) pg MCHC 34.8 (31.0-36.0) g/dl RDW 13.5 (11.0-16.0) % Plt Count 210 (160-400) X10*3/uL MPV 12.3 (9.4-12.4) fL Absolute Nucleated RBC 0.000 (0.0-0.012) X10*3/uL Nucleated RBC % (auto) 0.0 (0.0-0.2) /100WBC Sodium Cancelled Potassium Cancelled Chloride Cancelled Carbon Dioxide Cancelled Anion Gap Cancelled BUN Cancelled Creatinine Cancelled Estim Creat Clear Calc Cancelled Estimated GFR Cancelled Random Glucose Cancelled Calcium Cancelled Total Bilirubin Cancelled AST Cancelled ALT Cancelled Alkaline Phosphatase Cancelled Troponin I High Sens (<3.5-35.0) ng/L Total Protein Cancelled Albumin Cancelled COVID-19 (FLASH) (Negative) COVID-19 Clin Com Influenza Type A (SAMY) Negative (Negative) Influenza Type B (SAMY) Negative (Negative) Influenza A & B Note See Note 01/25/23 01/25/23 Range/Units 23:28 23:28 WBC (4.8-10.8) X10*3/uL RBC (4.60-5.80) X10*6/uL Hgb (14.0-18.0) g/dl Hct (42.0-52.0) % MCV (80.0-98.0) fL MCH (27.0-33.0) pg MCHC (31.0-36.0) g/dl RDW (11.0-16.0) % Plt Count (160-400) X10*3/uL MPV (9.4-12.4) fL Absolute Nucleated RBC (0.0-0.012) X10*3/uL Nucleated RBC % (auto) (0.0-0.2) /100WBC Sodium Potassium Chloride Carbon Dioxide Anion Gap BUN Creatinine Estim Creat Clear Calc Estimated GFR Random Glucose Calcium Total Bilirubin AST ALT Alkaline Phosphatase Troponin I High Sens 17.1 (<3.5-35.0) ng/L Total Protein Albumin COVID-19 (FLASH) Negative (Negative) COVID-19 Clin Com See Note Influenza Type A (SAMY) (Negative) Influenza Type B (SAMY) (Negative) Influenza A & B Note Discharge Plan Discharge Clinical Impression: Acute asthmatic bronchitis Patient Disposition: Home, Self-Care Instructions: Acute Bronchitis (ED) Additional Instructions: Use inhaler and prednisone as prescribed Cough syrup and antibiotic as prescribed Follow with PCP if not better Prescriptions: New codeine-guaifenesin 10-100 mg/5 mL liquid 10 ml PO Q6H PRN (Reason: cough) Qty: 237 0RF cefuroxime axetil 500 mg tablet 500 mg PO BID Qty: 20 0RF albuterol sulfate 2.5 mg /3 mL (0.083 %) solution for nebulization 2.5 mg inhalation Q4-6H PRN (Reason: shortness of breath or wheezing) Qty: 90 0RF azithromycin [Zithromax Z-Latrell] 250 mg tablet 250 mg PO DAILY 4 Days Qty: 4 0RF Rx Instructions: start on day 2 of therapy prednisone 20 mg tablet 40 mg PO DAILY Qty: 10 0RF No Action bisacodyl [Dulcolax (bisacodyl)] 5 mg tablet,delayed release (DR/EC) 10 mg PO ONCE 1 Days Qty: 2 0RF Rx Instructions: take orally as directed prior to colonoscopy polyethylene glycol 3350 [Miralax] 17 gram/dose powder 238 g PO ONCE 1 Days Qty: 238 0RF Rx Instructions: take orally as directed prior to colonoscopy escitalopram oxalate 5 mg tablet 5 mg PO DAILY 90 Days Qty: 90 1RF amlodipine 2.5 mg tablet 2.5 mg PO DAILY 90 Days Qty: 90 2RF acetaminophen [Tylenol Extra Strength] 500 mg tablet 500 mg PO Q6H PRN (Reason: pain or fever) Qty: 20 0RF ProAir RespiClick 90 mcg/actuation aerosol powdr breath activated 2 inh inhalation Q6H PRN (Reason: shortness of breath or wheezing) 30 Days Qty: 1 0RF amoxicillin 500 mg tablet 500 mg PO BID 7 Days Qty: 14 0RF ipratropium-albuterol 0.5 mg-3 mg(2.5 mg base)/3 mL solution for nebulization 3 ml inhalation Q4-6H PRN (Reason: wheezing) 30 Days Qty: 180 6RF Interventions: ED Discharge Assessment Last Done: 04/12/22 01:53 Discharge Date/Time: 04/12/22 01:53
[2022-04-11 23:46] LABS: Hematocrit 40.2 % (42.0-52.0); Mean Corpuscular HGB Conc 34.8 g/dl (31.0-36.0); Mean Corpuscular Hemoglobin 31.5 pg (27.0-33.0); Mean Corpuscular Volume 90.3 fL (80.0-98.0); Mean Platelet Volume 12.3 fL (9.4-12.4); Platelet Count 210 X10*3/uL (160-400); Red Blood Count 4.45 X10*6/uL (4.60-5.80); Red Cell Distribution Width 13.5 % (11.0-16.0); White Blood Count 17.6 X10*3/uL (4.8-10.8)
[2022-04-12] MEDS: Azithromycin 500 MG TABLET PO (00:02)
[2022-04-12] MEDS: guaiFEN/Codeine SF 200/20/10ML 10 ML LIQUID PO (00:02)
[2022-04-12] MEDS: Albuterol/Iprat 2.5/0.5MG 3 ML AMPUL.NEB INHALE (00:03)
[2022-04-12] MEDS: Albuterol Sulfate (0.083%) 2.5 MG/3 ML VIAL.NEB INHALE (00:03)
[2022-04-12 00:06] VITALS: PULSE 74; RESP 18; O2SAT 95
[2022-04-12 00:07] LABS: Troponin-I High Sensitivity 17.1 ng/L (<3.5-35.0)
[2022-04-12 00:09] LABS: COVID-19 Test Negative (Negative); IDNOW Serial# 16C4AD1C; IDNOW Serial# BCCEAD1C; Influenza A Negative (Negative); Influenza B2 Negative (Negative)
[2022-04-12] MEDS: predniSONE 20 MG TABLET 60 MG PO (00:24)
[2022-04-12] MEDS: Albuterol Sulfate (0.083%) 2.5 MG/3 ML VIAL.NEB 5 MG INHALE (01:08)
[2022-04-12] MEDS: Benzonatate 100 MG CAPSULE 200 MG PO (01:21)
== END 2022-04-12 01:53 | disposition home or self-care (01) ==
PROVIDERS: Emergency Provider Internal Medicine; PCP Internal Medicine
DX: J45.909 Unspecified asthma, uncomplicated (principal); I10 Essential (primary) hypertension; Z79.899 Other long term (current) drug therapy; Z20.822 Contact with and (suspected) exposure to COVID-19
CPT/HCPCS: 36415; 71046; 84484; 85027; 87502; 87635; 93005; 94640; 99284; 99285

== ENCOUNTER → 2022-07-16 08:23 | Outpatient (BNVA) | payer OTHER, SELFPAY | PROVIDERS: PCP Internal Medicine; Visit Provider Physician Assistant | DX: Z12.11 Encounter for screening for malignant neoplasm of colon (principal) | CPT/HCPCS: 99202 ==

== ENCOUNTER 2023-04-27 12:30 | Emergency (ER) | payer OTHER, SELFPAY ==
--- NOTE | ~2023-04-27 | CT_ITS ---
EXAMINATION: CT ABDOMEN AND PELVIS WITH CONTRAST CLINICAL INFORMATION: Right lower quadrant abdominal pain COMPARISON: Abdomen and pelvic CT scan of from 02/27/2021, 12/29/2019 TECHNIQUE: Multidetector volumetric images were obtained from the superior aspect of the liver through the pubic symphysis following administration 85 mL of Omnipaque 350 intravenous contrast. Sagittal and coronal reformatted images were obtained on the technologist's workstation. Oral contrast: No This CT examination was performed using dose optimization techniques as appropriate, variously including the following: *Automated exposure control *Adjustment of mA and/or kV according to patient size (this includes techniques or standardized protocols for targeted exams where dose is matched to indication/reason for exam; i.e. extremities or head) *Use of iterative reconstruction technique DLP: 880 mGy-cm FINDINGS: LUNG BASES: The visualized lung bases are unremarkable. LIVER, GALLBLADDER, AND BILIARY TREE: The liver is normal in size, shape, and attenuation. No focal hepatic lesion or biliary ductal dilatation is present. The gallbladder is surgically absent. No radiopaque filling defect is noted in the common bile duct. PANCREAS: Unremarkable. SPLEEN: Unremarkable. ADRENAL GLANDS: Unremarkable. KIDNEYS AND URETERS: The kidneys are normal in size, shape, and attenuation. No hydronephrosis, hydroureter, or calculi seen. No perinephric stranding. A 0.8 cm low-attenuation lesion in the mid to lower right kidney posteriorly is not significantly changed when compared to previous CT scan of 02/27/2021 (0.6 cm). The finding statistically likely represents a cyst and no further imaging follow-up of this cyst is warranted. BLADDER: Unremarkable. GASTROINTESTINAL TRACT: No abnormal dilatation of the stomach and small bowel. The colon is normal in caliber. No evidence of colonic wall thickening or pericolonic fat stranding. An appendix is normal. PERITONEAL CAVITY: No free intraperitoneal air or fluid. Small bowel mesenteric fat stranding is noted in the central abdomen; similar finding is noted on the previous CT scans and represents changes of mesenteric panniculitis. ABDOMINAL WALL: No significant hernia is appreciated. LYMPH NODES: Normal. VASCULAR: Unremarkable. PELVIC VISCERA: Unremarkable. OSSEOUS STRUCTURES: Unremarkable. CT/CT abdomen pelvis w IV con IMPRESSION: 1. Normal appendix. 2. No acute abnormality. 3. Findings consistent with mesenteric panniculitis. No significant change is noted when compared to previous CT scan of 02/27/2021. 4. A 0.8 cm low-attenuation lesion in the right kidney is stable when compared to previous CT scans of 2020 and 2019. The finding statistically likely represents a cyst and no further imaging follow-up of this finding is warranted. Fleischner guidelines were followed.
[2023-04-27 12:39] VITALS: BP 183/120; PULSE 113; RESP 20; TEMP 37; O2SAT 97; BMI 31.0
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
[2023-04-27 13:47] LABS: MANUAL DIFF FLAG NO
[2023-04-27 13:48] LABS: Basophils Percent Auto 0.2 % (0-2); Eosinophils Absolute Auto 0.2 X10*3/uL (0.0-0.4); Eosinophils Percent Auto 1.3 % (0-4); Hematocrit 44.1 % (42.0-52.0); Hemoglobin 15.4 g/dl (14.0-18.0); Imm Gran Abs Auto 0.04 X10*3/uL (0.00-0.03); Imm Gran Pct Auto 0.3 % (0.0-0.4); Lymphocytes Absolute Auto 0.9 X10*3/uL (1.2-4.9); Lymphocytes Percent Auto 6.7 % (20-40); Mean Corpuscular HGB Conc 34.9 g/dl (31.0-36.0); Mean Corpuscular Hemoglobin 31.8 pg (27.0-33.0); Mean Corpuscular Volume 90.9 fL (80.0-98.0); Mean Platelet Volume 10.4 fL (9.4-12.4); Monocytes Absolute Auto 0.8 X10*3/uL (0.1-1.2); Monocytes Percent Auto 5.7 % (2-11); Neutrophils Absolute Auto 11.8 x10*3/uL (2.0-8.3); Neutrophils Percent Auto 85.8 % (45-73); Platelet Count 233 X10*3/uL (160-400); Red Blood Count 4.85 X10*6/uL (4.60-5.80); Red Cell Distribution Width 12.9 % (11.0-16.0); White Blood Count 13.7 X10*3/uL (4.8-10.8)
[2023-04-27 14:01] LABS: Alanine Aminotransferase 24 U/L (0-40); Albumin Level 4.4 g/dL (3.5-5.0); Alkaline Phosphatase 85 U/L (39-117); Anion Gap 12 (12-20); Aspartate Amino Transferase 18 U/L (5-37); Blood Urea Nitrogen 6 mg/dL (9-16); Carbon Dioxide 24 mmol/L (22-29); Chloride 105 mmol/L (96-108); Creatinine Clr Calc Pharmacy 141.7; Estimated Glomerular Filt Rate > 60; Glucose Random 94 mg/dL (60-115); Lipase 8 U/L (8-78); Potassium 3.8 mmol/L (3.3-5.1); Sodium 137 mmol/L (135-145); Total Protein 7.6 g/dL (6.5-8.0)
[2023-04-27 14:08] LABS: Appearance Urine Clear; Color Urine Yellow; Glucose Urine UA Negative (Negative); Leukocyte Esterase Urine Negative (Negative); Nitrite Urine Negative (Negative); Specific Gravity - Urine <= 1.005 (1.005-1.025); Urine Blood Negative (Negative); Urine Ketones Negative (Negative); Urine Protein Negative (Neg-Trace)
[2023-04-27] MEDS: Ketorolac Tromethamine 15 MG/ML VIAL IVPUSH (14:56)
[2023-04-27] MEDS: 0.9 % Sodium Chloride 1,000 ML 999 ML IV (14:58)
[2023-04-27 15:01] VITALS: BP 127/65; PULSE 88; RESP 18; O2SAT 98
[2023-04-27] MEDS: iohexoL 350 MG/ML 100 ML INFUS..BTL 85 ML IV (15:30)
== END 2023-04-27 16:31 | disposition home or self-care (01) ==
PROVIDERS: Nurse Practitioner Family; Emergency Provider Emergency Medicine; PCP Internal Medicine
DX: K65.4 Sclerosing mesenteritis (principal); R10.31 Right lower quadrant pain; I10 Essential (primary) hypertension; Z79.899 Other long term (current) drug therapy
CPT/HCPCS: 36415; 74177; 80053; 81003; 83690; 85025; 96361; 96374; 99284; 99285; J1885; Q9967

== ENCOUNTER 2024-01-02 15:56 | Outpatient (AMB) | payer OTHER, SELFPAY ==
--- NOTE | 2024-01-02 16:02 | A.OFFPC_ITS ---
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 Accompanied by: Self / Same As Patient Allergies bee pollen [BEE STINGS] Allergy (Severe, Verified 01/02/24 16:18) ANAPHYLAXIS Bleach (Sodium Hypochlorite) [BLEACH (SODIUM HYPOCHLORITE)] Allergy (Severe, Verified 01/02/24 16:18) DIFF BREATHING Fish Containing Products Allergy (Severe, Verified 01/02/24 16:18) HIVES Medication List - Last Reconciled 01/02/24 by Toyin Grace MD acetaminophen (Tylenol Extra Strength) 500 mg PO Q6H PRN albuterol sulfate 90 mcg/actuation (ProAir RespiClick) 2 inhalations inhalation Q6H PRN 30 days albuterol sulfate 2.5 mg (3 mL) inhalation Q4-6H PRN amlodipine 2.5 mg PO DAILY 90 days cyclobenzaprine 10 mg PO BEDTIME PRN 30 days ipratropium-albuterol 0.5 mg-3 mg(2.5 mg base)/3 mL 3 mL inhalation Q4-6H PRN 30 days Tobacco use date assessed: 01/02/24 Dental Screening Dental Screen Date: 01/02/24 Did you have a dental visit in the last 12 months?: Yes Did you have a dental problem in the last 6 months where you did not have access to dental care?: No Was dental information given to patient?: Patient has dentist HPI HPI Comments History of Present Illness Details This is a 48-year-old male that comes for his physical exam. Will be refer colonoscopy through open access. Complains of bilateral knee pain and would like a referral for ortho. Complains of blurry vision and would like a referral for Ophthalmology. No chest pain or shortness on breath. [facility] Medical History (Updated 01/04/24 @ 08:43 by Toyin Grace MD) Insomnia TERRY (generalized anxiety disorder) Physical exam Pneumonia Sleep apnea COVID-19 vaccine series completed History of COVID-19 Obesity (BMI 30.0-34.9) Left knee pain Right shoulder pain Nocturia Essential hypertension Right kidney mass Lung nodule Cholelithiasis Hypertension Asthma Juan Alberto Parkinson White pattern seen on electrocardiogram Surgical History S/P arthroscopy of right shoulder History of laparoscopic cholecystectomy History of cardiac catheterization Family History Son Heart murmur Daughter Heart disease Maternal Aunt Cancer Myocardial infarction Mother Cancer Father Heart disease Substance use disorder Sister Substance use disorder Social History Housing: Apartment Are you a primary animal care worker to a significant other at home: No Do you presently have visiting nurse or other home services: No Alcohol intake: never Patient Tobacco Use Status: Current everyday Tobacco user Tobacco use type: Cigarette Cigarettes Per Day: 10 Years Smoked: 25 e-Cigarette/Vaping Use: Never Used Second Hand Smoke Exposure: No service: No Current occupational status: unemployed Current occupation: rt handed Cognitive needs: No Hearing needs: No Vision needs: No Questionnaire PHQ-9 Over the last 2 weeks, how often have you been bothered by any of the following problems? 1. Little interest or pleasure in doing things: not at all 2. Feeling down, depressed, or hopeless: several days 3. Trouble falling or staying asleep, or sleeping too much: several days 4. Feeling tired or having little energy: several days 5. Poor appetite or overeating: several days 6. Feeling bad about yourself - or that you are a failure or have let yourself or your family down: not at all 7. Trouble concentrating on things, such as reading the newspaper or watching television: several days 8. Moving or speaking so slowly that other people could have noticed. Or the opposite - being so fidgety or restless that you have been moving around a lot more than usual: not at all 9. Thoughts that you would be better off or of hurting yourself in some way: not at all Total score: 5 Depression Screening Interpretation: Positive Depression Screening Follow-up: Existing condition and Follow-up Visit Requested Depression Screening Done: Yes 37525 - PHQ-9 Billing: Yes Source: Developed by Drs. Carlos Enrique García, Lui Vigil and colleagues, with an educational leah from [employer]. Thrive Questionnaire Date Thrive assessed: 01/02/24 I am a: Patient What is your living situation today?: I have a steady place to live Within the past 12 months, did the food you bought not last and you didn't have the money to get more?: Sometimes True Within the past 12 months, did you worry whether your food would run out before you got money to buy more?: Sometimes True Do you have trouble paying for medicines?: No Do you have trouble getting transportation to medical appointments?: No Do you have trouble paying your heating and electricity bill?: I choose not to answer this question Do you have trouble taking care of your child, family member or friend?: I choose not to answer this question Do you have trouble with day-to-day activities such as bathing, preparing meals, shopping, managing finances, etc.?: No Are you currently unemployed and looking for a job?: I choose not to answer this question Are you interested in more education?: No Please select the resources that you would like help with: None Currently or been in a relationship where the following occur: I choose not to answer THRIVE Score: 2 AUDIT C Alcohol Use Questionnaire (AUDIT-C) 1. How often do you have a drink containing alcohol?: Never Total Score: 0 Score Reviewed/Action Taken: No TERRY-7 AMB Questionnaire TERRY-7 Date TERRY - 7 assessed: 01/02/24 Feeling nervous, anxious, or on edge: 1 = Several days Not being able to stop or control worryin = Several days Worrying too much about different things: 1 = Several days Trouble relaxin = Several days Being so restless that it is hard to sit still: 1 = Several days Becoming easily annoyed or irritable: 1 = Several days Feeling afraid as if something awful might happen: 0 = Not at all Total TERRY-7 score (0-4 normal; 5-9 mild; 10-14 moderate; 15-21 severe): 6 Source: Developed by Drs. Carlos Enrique García, Lui Vigil and colleagues, with an educational laeh from [employer]. TERRY-7 Assessment Billing TERRY-7 Assessment Tool: TERRY-7 Assessment 69492 Review of Systems Const All systems reviewed & are unremarkable except as noted in HPI and below Eyes Reports blurry vision Card Denies chest pain at rest, Denies chest pain with activity, Denies edema, Denies irregular heart rhythm, Denies claudication, Denies dyspnea, Denies dyspnea on exertion, Denies orthopnea, Denies paroxysmal nocturnal dyspnea and Denies slow heart rate Resp Denies cough, Denies dyspnea and Denies dyspnea on exertion GI Denies abdominal pain, Denies change in bowel habits, Denies excessive flatus, Denies nausea and Denies vomiting Musc Reports arthralgias Neuro Denies lack of coordination Physical exam (Primary Care) Vital Signs: Last Vital Signs BP 150/100 H 01/02/24 16:25 BMI result Body Mass Index 30.6 Tobacco/Smoking Status: Tobacco use Status Tobacco use date assessed 01/02/24 01/02/24 16:09 Patient Tobacco Use Status Current everyday Tobacco 01/02/24 16:09 Tobacco use type Cigarette 01/02/24 16:03 e-Cigarette/Vaping Use Never Used 01/02/24 16:03 PHQ-9: PHQ-9 Score PHQ-9: Total score 5 01/02/24 16:23 Depression Screening Interpretation: Positive Depression Screening Follow-up: Existing condition and Follow-up Visit Requested Thrive Assessment: Date of Thrive Assessment Date Thrive assessed 01/02/24 01/02/24 16:03 Currently or been in a relationship where the following occur: I choose not to answer HENCA Head: Yes normal to inspection, Yes normocephalic and Yes atraumatic Ears: external ears normal Eyes General: appearance normal, both eyes and all related structures Eyelids: Yes eyelids normal Conjunctivae: conjunctivae normal Neck Neck: Yes normal visual inspection and Yes supple Resp Effort & Inspection: normal respiratory effort Auscultation: clear to auscultation bilaterally Cardio Jugular venous distension: no JVD Rate: regular rate Rhythm: regular rhythm Heart sounds: S1 normal heart sound present and S2 normal heart sound present GI Inspection: Yes normal to inspection Palpation (GI): Soft to palpation and nontender Auscultation: normal bowel sounds Skin General skin exam: no rashes or lesions noted Neuro General: no focal motor deficits Extrem General: Yes full ROM Psych Appearance: grossly normal Office Procedures Flu Questionnaire Does the patient have a severe egg allergy?: No Does the patient have severe life threatening allergies?: No Does the patient have a fever or illness today?: No Has the patient ever had Guillain-Thayer Syndrome?: No Has the patient ever had any past reaction to a flu shot?: No Immunizations Fluarix Triv [id number] (PF) 45 mcg (15 mcg x 3)/0.5 mL IM syringe Performing Provider: Toyin Grace MD [facility] Administered by: MICKEY Calhoun on 01/02/24 16:30 Dose Route Admin Location Dispensed Lot Number Expiration Date NDC Legal Biller 0.5 mL IM Right Deltoid 0.5 mL [id number] 09/14/24 [id number] [employer] VIS Given Date VIS Provided VIS Publication Date 01/02/24 Single Vaccine 20 Eligibility Eligibility Date Funding Source Not [facility] Eligible 01/02/24 Private Coding Level of Care Code Est Pt Level 3 (46493) Est Pt Prev Care 40-64y(40625) Diagnoses Physical exam Z00.00 Blurry vision H53.8 Chronic pain of both knees M25.561; M25.562; G89.29 Chronicity: chronic Additional Codes TERRY-7 Assessment Billing - TERRY-7 Assessment Tool: TERRY-7 Assessment 63944 ([id number]) Time Spent (min) 35 Assessment & Plan Assessment & Plan (1) Physical exam: Code(s): Z00.00 - Encounter for general adult medical examination without abnormal findings Category: Medical Plan: Repeat in a year. (2) Blurry vision: Code(s): H53.8 - Other visual disturbances Category: Medical Plan: Refer to ophthalmology (3) Bilateral knee pain: Code(s): M25.561 - Pain in right knee; M25.562 - Pain in left knee Category: Medical Qualifiers: Chronicity: chronic Qualified Code(s): M25.561 - Pain in right knee; M25.562 - Pain in left knee; G89.29 - Other chronic pain Plan: Refer to ortho. Orders: Orders XR shoulder LT min 2V 01/02/24 M25.512 - Pain in left shoulder Lipid Panel 01/02/24 E78.5 - Hyperlipidemia, unspecified Comprehensive Met. Panel 01/02/24 Z00.00 - Encounter for general adult medical examination without abnormal findings Influenza [id number] Immunization 01/02/24 Z23 - Encounter for immunization Referrals Orthopedics Referral M25.561 - Pain in right knee, M25.562 - Pain in left knee Open Access Screening Colonoscopy Referral Z12.12 - Encounter for screening for malignant neoplasm of rectum Ophthalmology Referral H53.8 - Other visual disturbances Medications: New betamethasone dipropionate 0.05% 1 appl topical DAILY PRN 15 grams 0RF skin irritation 2 weeks
[2024-01-02 16:04] VITALS: BP 146/118; BMI 30.6
[2024-01-02 16:25] VITALS: BP 150/100
== END 2024-01-02 16:42 | disposition home or self-care (01) ==
PROVIDERS: PCP Internal Medicine; Visit Provider Internal Medicine
DX: Z00.00 Encounter for general adult medical examination without abnormal findings (principal); H53.8 Other visual disturbances; M25.561 Pain in right knee; M25.562 Pain in left knee; G89.29 Other chronic pain

== ENCOUNTER → 2024-01-02 15:56 | Outpatient (BNVA) | payer OTHER, SELFPAY | PROVIDERS: PCP Internal Medicine; Visit Provider Internal Medicine | DX: Z00.01 Encounter for general adult medical examination with abnormal findings (principal); H53.8 Other visual disturbances; G89.29 Other chronic pain; M25.561 Pain in right knee; M25.562 Pain in left knee | CPT/HCPCS: 90471; 90656; 96127; 99212; 99396 ==

== ENCOUNTER 2024-01-04 09:15 | Outpatient (REF) | payer OTHER, SELFPAY ==
[2024-01-04 11:56] LABS: Alanine Aminotransferase 28 U/L (0-40); Albumin Level 4.3 g/dL (3.5-5.0); Alkaline Phosphatase 80 U/L (39-117); Anion Gap 12 (12-20); Aspartate Amino Transferase 18 U/L (5-37); Bilirubin Total 0.8 mg/dL (0.0-1.0); Blood Urea Nitrogen 8 mg/dL (9-16); Calcium 9.2 mg/dL (8.4-10.2); Carbon Dioxide 23 mmol/L (22-29); Chloride 108 mmol/L (96-108); Cholesterol 155 mg/dL (<200); Estimated Glomerular Filt Rate > 60; Glucose Fasting 136 mg/dL (60-99); HDL Cholesterol 39 mg/dL (>40); LDL Cholesterol Calculated 92 mg/dL (<100); Potassium 4.1 mmol/L (3.3-5.1); Sodium 139 mmol/L (135-145); Total Protein 7.4 g/dL (6.5-8.0); Triglycerides 123 mg/dL (<150)
== END 2024-01-04 09:16 | disposition home or self-care (01) ==
LOC: HO.XRAY 09:15
PROVIDERS: PCP Internal Medicine; Visit Provider Internal Medicine
DX: Z00.00 Encounter for general adult medical examination without abnormal findings (principal); M25.512 Pain in left shoulder
CPT/HCPCS: 36415; 73030; 80053; 80061

== ENCOUNTER → 2024-01-15 11:54 | Outpatient (BNVA) | payer OTHER, SELFPAY | PROVIDERS: PCP Internal Medicine; Visit Provider Internal Medicine ==

== ENCOUNTER 2024-01-23 11:16 | Outpatient (REF) | payer OTHER, SELFPAY | END 2024-01-23 11:17 | disposition home or self-care (01) | LOC: HO.HOSX 11:16 | PROVIDERS: Visit Provider Orthopaedic Surgery | DX: Z13.89 Encounter for screening for other disorder (principal) ==

== ENCOUNTER 2024-02-07 08:37 | Outpatient (REF) | payer OTHER, SELFPAY ==
--- NOTE | ~2024-02-07 | XR_ITS ---
EXAMINATION: XR KNEE LEFT CLINICAL INFORMATION: Pain. COMPARISON: None available TECHNIQUE: Three views of the left knee. FINDINGS: No fracture or joint effusion. Alignment is anatomic. Joint spaces are maintained. No abnormal soft tissue calcification. XR/XR knee LT 3V IMPRESSION: No acute abnormality in the left knee Electronically signed by: Carlos Enrique Pineda MD 03/10/2024 10:13 AM GAEL
== END 2024-02-07 08:38 | disposition home or self-care (01) ==
LOC: HO.HOSX 08:37
PROVIDERS: Visit Provider Physician Assistant
DX: M25.561 Pain in right knee (principal); M25.562 Pain in left knee; M17.12 Unilateral primary osteoarthritis, left knee; M23.91 Unspecified internal derangement of right knee
CPT/HCPCS: 20610; 73562; 99212; J1010; J2003

== ENCOUNTER 2024-02-07 10:19 | Outpatient (AMB) | payer OTHER, SELFPAY ==
--- NOTE | 2024-02-07 10:35 | A.OFFVIS_ITS ---
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 Patient reports his pain has been present for about a year. States his knees are equal in pain. His left knee pain is located at the lateral aspect and sharp pain in the back of his knee. States his right knee pain is inside his knee, under his kneecap and the sides of his knee. He has constant pain/discomfort and is unable to do any prolong walking. No previous tx. No numbness or tingling. Denies injury. Finds very little relief with Motrin, icing, or OTC topical cream. 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 He has pain with prolonged walking and running around. He has pain which is worse with the the cold. He has some shart shooting pain in the right knee. He denies treatment to date. [facility] Medical History Insomnia TERRY (generalized anxiety disorder) Physical exam Pneumonia Sleep apnea COVID-19 vaccine series completed History of COVID-19 Obesity (BMI 30.0-34.9) Left knee pain Right shoulder pain Nocturia Essential hypertension Right kidney mass Lung nodule Cholelithiasis Hypertension Asthma Juan Alberto Parkinson White pattern seen on electrocardiogram Surgical History S/P arthroscopy of right shoulder History of laparoscopic cholecystectomy History of cardiac catheterization Family History Son Heart murmur Daughter Heart disease Maternal Aunt Cancer Myocardial infarction Mother Cancer Father Heart disease Substance use disorder Sister Substance use disorder Social History Housing: Apartment Are you a primary patient care technician instructor to a significant other at home: No Do you presently have visiting nurse or other home services: No Alcohol intake: never Patient Tobacco Use Status: Current everyday Tobacco user Tobacco use type: Cigarette Cigarettes Per Day: 10 Years Smoked: 25 e-Cigarette/Vaping Use: Never Used Second Hand Smoke Exposure: No service: No Current occupational status: unemployed Current occupation: rt handed Cognitive needs: No Hearing needs: No Vision needs: No Review of Systems Const All systems reviewed & are unremarkable except as noted in HPI and below Physical Exam Vital Signs: BMI result Body Mass Index 30.6 Const General: cooperative and no acute distress Orientation/consciousness: patient oriented x3 Resp Effort & Inspection: normal respiratory effort and able to speak in complete sentences Cardio Peripheral pulses: Peripheral pulses 2+ throughout Neuro General: patient oriented x3 Extrem Other: Right knee skin intact, no erythema or joint effusion. Lateral retropatellar tenderness. ROM full with crepitus. Positive steinmans. No ligamentous laxity. NVI. Left knee skin intact, no erythema or joint effusion. Tenderness along the m edial joint line. ROM full with crepitus. Negative steinmans. No ligamentous laxity. NVI. Office Procedures AMB Joint Injection/Aspiration Joint Injection/Aspiration Primary Site: right knee Secondary Site: left knee Prep: site was prepped using aseptic technique, ethochloride spray was applied and injection warnings given Injected: 80 mg of, DepoMedrol, with 8 mL of, 1% plain lidocaine and in the joint Approach Used: anterolateral Procedure: The patient tolerated the procedure well and there was some relief with the local anesthesia Coding 77713 - Glenohumeral/Tronchanteric Bursa/Intraarticular Procedure code (CPT) selection complete Quality Reporting (2019) Adult ([facility] 138/[birth year]/09/68) Smoking risk assessment performed?: Yes Patient Tobacco Use Status: Current everyday Tobacco user Results Reviewed Results Reviewed: Xrays were obtained in the office today and personally reviewed by bilcheyenne knee knee show mild lateralization of the patella Assessment & Plan Assessment & Plan (1) Patellofemoral arthritis of left knee: Code(s): M17.12 - Unilateral primary osteoarthritis, left knee Category: Medical (2) Internal derangement of right knee: Code(s): M23.91 - Unspecified internal derangement of right knee Category: Medical Plan We discussed options today, which include steroid injection. The patient did consent to move forward with the injection, bilateral knees, which was tolerated well.? I recommended rest, ice and elevation and OTC antiinflammatories prn for discomfort. If symptoms persist over the next 6-8 weeks, they will contact our office, otherwise, prn An MRI of the right knee has been ordered to further evaluate the integrity of the meniscus as he does have some catching and locking with activities. Orders: Orders XR knee LT 3V Today M25.562 - Pain in left knee XR knee RT 3V Today M17.11 - Unilateral primary osteoarthritis, right knee Coding Level of Care Code Est Pt Level 3 (70456) Complex EM visit Add On G2211 Diagnoses Patellofemoral arthritis of left knee M17.12 Internal derangement of right knee M23.91 CPT Codes Coding - Joint 7: 86725 - Glenohumeral/Tronchanteric Bursa/Intraarticular ([id number])
[2024-02-07 10:40] VITALS: BMI 30.6
== END 2024-02-07 11:16 | disposition home or self-care (01) ==
PROVIDERS: PCP Internal Medicine; Visit Provider Physician Assistant
DX: M17.12 Unilateral primary osteoarthritis, left knee (principal); M23.91 Unspecified internal derangement of right knee
CPT/HCPCS: 20610; 99213

== ENCOUNTER 2024-03-14 10:34 | Outpatient (REF) | payer OTHER, SELFPAY ==
--- NOTE | ~2024-03-14 | MR_ITS ---
CLINICAL HISTORY: M17.11 - Unilateral primary osteoarthritis, right knee MR right knee without gadolinium Comparison: DX - XR KNEE RT 3V - 02/07/2024 10:24 AM EST Findings: The anterior and posterior cruciate ligaments are intact. No meniscal tear. Quadriceps tendon and patellar tendon are intact. Mild tendinopathy of the distal quadriceps tendon. Mild edema within the quadriceps fat pad with a posterior convex border. Medial collateral ligament and lateral collateral complex are within normal limits. No focal cartilage defects. Physiologic amount of fluid within the knee joint. Bone marrow signal intensity is within normal limits. Impression: 1. No cruciate ligament, collateral ligament, or meniscal tear. 2. Edema within the quadriceps fat pad with convex posterior border. This finding has been described in association with anterior knee pain. This is seen in association with mild tendinopathy of the distal quadriceps tendon. This document has been electronically signed by: Moise Jay MD on 03/18/2024 06:10:16
== END 2024-03-14 10:35 | disposition home or self-care (01) ==
LOC: HO.MRI 10:34
PROVIDERS: PCP Internal Medicine; Visit Provider Physician Assistant
DX: M17.11 Unilateral primary osteoarthritis, right knee (principal)
CPT/HCPCS: 73721

== ENCOUNTER → 2024-03-14 10:58 | Outpatient (BNV) | payer OTHER, SELFPAY | PROVIDERS: PCP Internal Medicine; Visit Provider Radiology Diagnostic Radiology | DX: M17.11 Unilateral primary osteoarthritis, right knee (principal) | CPT/HCPCS: 73721 ==

== ENCOUNTER 2024-04-03 09:56 | Outpatient (AMB) | payer OTHER, SELFPAY ==
--- NOTE | 2024-04-03 09:57 | A.OFFVIS_ITS ---
Intake Visit Reasons: Tel- RT knee MRI review Intake Note: Brandon is a 49 year old male who is scheduled for a telephone visit to discuss RT knee MRI review. Allergies bee pollen [BEE STINGS] Allergy (Severe, Verified 04/03/24 09:58) ANAPHYLAXIS Bleach (Sodium Hypochlorite) [BLEACH (SODIUM HYPOCHLORITE)] Allergy (Severe, Verified 04/03/24 09:58) DIFF BREATHING Fish Containing Products Allergy (Severe, Verified 04/03/24 09:58) HIVES HPI HPI Tel- RT knee MRI review: Details: 49 -year-old male presents for MRI review right knee telehealth visit. He states he is doing well, the injection was helpful in the beginning. He does experience anterior knee pain. He has not begun PT as he was waiting for MRI results. [facility] Medical History Insomnia TERRY (generalized anxiety disorder) Physical exam Pneumonia Sleep apnea COVID-19 vaccine series completed History of COVID-19 Obesity (BMI 30.0-34.9) Left knee pain Right shoulder pain Nocturia Essential hypertension Right kidney mass Lung nodule Cholelithiasis Hypertension Asthma Juan Alberto Parkinson White pattern seen on electrocardiogram Surgical History S/P arthroscopy of right shoulder History of laparoscopic cholecystectomy History of cardiac catheterization Family History Son Heart murmur Daughter Heart disease Maternal Aunt Cancer Myocardial infarction Mother Cancer Father Heart disease Substance use disorder Sister Substance use disorder Social History Housing: Apartment Are you a primary health care assistant to a significant other at home: No Do you presently have visiting nurse or other home services: No Alcohol intake: never Patient Tobacco Use Status: Current everyday Tobacco user Tobacco use type: Cigarette Cigarettes Per Day: 10 Years Smoked: 25 e-Cigarette/Vaping Use: Never Used Second Hand Smoke Exposure: No service: No Current occupational status: unemployed Current occupation: rt handed Cognitive needs: No Hearing needs: No Vision needs: No Review of Systems Const All systems reviewed & are unremarkable except as noted in HPI and below Physical Exam Resp Effort & Inspection: normal respiratory effort and able to speak in complete sentences Quality Reporting (2019) Adult ([facility] 138//) Smoking risk assessment performed?: Yes Patient Tobacco Use Status: Current katherine ryday Tobacco user Telehealth Telehealth Telehealth Platform: Telephone Location of provider rendering services: practice address Location of patient: address on file Patient Identification confirmed using: Name, : Yes Telehealth method: voice only Patient verbally consented to treatment: Yes Patient verbally consented to billing insurance company: Yes Patient informed of any privacy concerns related to visit: Yes Minutes spent on Phone/Video with Pt.: 10 Results Reviewed Results Reviewed: Impression: 1. No cruciate ligament, collateral ligament, or meniscal tear. 2. Edema within the quadriceps fat pad with convex posterior border. This finding has been described in association with anterior knee pain. This is seen in association with mild tendinopathy of the distal quadriceps tendon. This document has been electronically signed by: Moise Jay MD on 03/18/2024 06:10:16 Assessment & Plan Assessment & Plan (1) Patellofemoral arthritis of left knee: Code(s): M17.12 - Unilateral primary osteoarthritis, left knee Category: Medical (2) Patellofemoral arthritis of right knee: Code(s): M17.11 - Unilateral primary osteoarthritis, right knee Category: Medical Plan We discussed the results of the MRI and I feel as though this is primarily anterior/patellofemoral knee pain. I do recommend he begin physical therapy to work on some strengthening exercises to help improve his daily activities. We can do another repeat injection in 3-6 months if he needed otherwise he will follow-up as needed. Coding Level of Care Code Tele Est Pt Level 3 (04976) Diagnoses Patellofemoral arthritis of left knee M17.12 Patellofemoral arthritis of right knee M17.11
== END 2024-04-03 10:15 | disposition home or self-care (01) ==
LOC: HO.HOS 09:56
PROVIDERS: PCP Internal Medicine; Visit Provider Physician Assistant
DX: M17.0 Bilateral primary osteoarthritis of knee (principal)
CPT/HCPCS: 99213

== ENCOUNTER → 2024-04-03 09:56 | Outpatient (BNVA) | payer OTHER, SELFPAY | PROVIDERS: PCP Internal Medicine; Visit Provider Physician Assistant ==

== ENCOUNTER 2024-05-15 08:47 | Outpatient (AMB) | payer OTHER, SELFPAY ==
--- NOTE | 2024-05-15 09:02 | A.OFFVIS_ITS ---
Vital Signs 05/15/24 09:19 Height 6 ft 2 in Weight 238 lb BMI 30.6 Intake Visit Reasons: INJ- b/l knee, last injection 02/07/24 Intake Note: Brandon is a 49 year old male who presents today for bilateral knee injections, last injections on 02/07/24. Patient reports injections provided him with relief for about a month. States cold weather increases his pain. He is requesting to repeat injections. Allergies bee pollen [BEE STINGS] Allergy (Severe, Verified 05/15/24 09:26) ANAPHYLAXIS Bleach (Sodium Hypochlorite) [BLEACH (SODIUM HYPOCHLORITE)] Allergy (Severe, Verified 05/15/24 09:26) DIFF BREATHING Fish Containing Products Allergy (Severe, Verified 05/15/24 09:26) HIVES Medication List - Last Reconciled 05/15/24 by Arnie Hill PA-C acetaminophen (Tylenol Extra Strength) 500 mg PO Q6H PRN albuterol sulfate 90 mcg/actuation (ProAir RespiClick) 2 inhalations inhalation Q6H PRN 30 days albuterol sulfate 2.5 mg (3 mL) inhalation Q4-6H PRN amlodipine 2.5 mg PO DAILY 90 days betamethasone dipropionate 0.05% 1 appl topical DAILY PRN 2 weeks cyclobenzaprine 10 mg PO BEDTIME PRN 30 days ipratropium-albuterol 0.5 mg-3 mg(2.5 mg base)/3 mL 3 mL inhalation Q4-6H PRN 30 days PFSH Medical History Insomnia TERRY (generalized anxiety disorder) Physical exam Pneumonia Sleep apnea COVID-19 vaccine series completed History of COVID-19 Obesity (BMI 30.0-34.9) Left knee pain Right shoulder pain Nocturia Essential hypertension Right kidney mass Lung nodule Cholelithiasis Hypertension Asthma Juan Alberto Parkinson White pattern seen on electrocardiogram Surgical History S/P arthroscopy of right shoulder History of laparoscopic cholecystectomy History of cardiac catheterization Family History Son Heart murmur Daughter Heart disease Maternal Aunt Cancer Myocardial infarction Mother Cancer Father Heart disease Substance use disorder Sister Substance use disorder Social History Housing: Apartment Are you a primary career development counselor to a significant other at home: No Do you presently have visiting nurse or other home services: No Alcohol intake: never Patient Tobacco Use Status: Current everyday Tobacco user Tobacco use type: Cigarette Cigarettes Per Day: 10 Years Smoked: 25 e-Cigarette/Vaping Use: Never Used Second Hand Smoke Exposure: No service: No Current occupational status: unemployed Current occupation: rt handed Cognitive needs: No Hearing needs: No Vision needs: No Review of Systems Const All systems reviewed & are unremarkable except as noted in HPI and below Physical Exam Vital Signs: BMI result Body Mass Index 30.6 Const General: cooperative and no acute distress Orientation/consciousness: patient oriented x3 Resp Effort & Inspection: normal respiratory effort and able to speak in complete sentences Cardio Peripheral pulses: Peripheral pulses 2+ throughout Neuro General: patient oriented x3 Extrem Other: Right knee skin intact, no erythema or joint effusion. Lateral retropatellar tenderness. ROM full with crepitus. Positive steinmans. No ligamentous laxity. NVI. Left knee skin intact, no erythema or joint effusion. Tenderness along the medial joint line. ROM full with crepitus. Negative steinmans. No ligamentous laxity. NVI. Office Procedures AMB Joint Injection/Aspiration Joint Injection/Aspiration Primary Site: right knee Secondary Site: left knee Prep: site was prepped using aseptic technique, ethochloride spray was applied and injection warnings given Injected: 80 mg of, with 8 mL of, 1% plain lidocaine and in the joint Approach Used: anterolateral Procedure: The patient tolerated the procedure well and there was some relief with the local anesthesia Coding 80949 - Glenohumeral/Tronchanteric Bursa/Intraarticular Procedure code (CPT) selection complete Quality Reporting (2019) Adult ([facility] 138/05/09/68) Smoking risk assessment performed?: Yes Patient Tobacco Use Status: Current everyday Tobacco user Assessment & Plan Assessment & Plan (1) Patellofemoral arthritis of left knee: Code(s): M17.12 - Unilateral primary osteoarthritis, left knee Category: Medical (2) Patellofemoral arthritis of right knee: Code(s): M17.11 - Unilateral primary osteoarthritis, right knee Category: Medical (3) Internal derangement of right knee: Code(s): M23.91 - Unspecified internal derangement of right knee Category: Medical Plan We discussed options today, which include steroid injection. The patient did consent to move forward with the injection, bilateral knees, which was tolerated well.? I recommended rest, ice and elevation and OTC antiinflammatories prn for discomfort. If symptoms persist over the next 6-8 weeks, they will contact our office, otherwise, prn Coding Level of Care Code Est Pt Level 3 (78270) Complex EM visit Add On G2211 Diagnoses Patellofemoral arthritis of left knee M17.12 Patellofemoral arthritis of right knee M17.11 Internal derangement of right knee M23.91 CPT Codes Coding - Joint 7: 13079 - Glenohumeral/Tronchanteric Bursa/Intraarticular ([id number])
--- OUTSIDE RECORDS SUMMARY | 2024-05-15 09:06 | XMS_ITS | Clinical Summary ---
Author Organization [facility] Address [address] [place] [address] Phone Care Team Providers Care Gear Keeper Name Role Phone Toyin Dennis MD Primary Care Provider [phone] Allergies No known active allergies Medications amLODIPine (NORVASC) 2.5 MG tablet Take 1 tablet by mouth 1 (one) time each day Active furosemide (LASIX) 20 MG tablet Take 20 mg by mouth 1 (one) time each day in the morning 1 Active nicotine (NICODERM CQ) 21 MG/24HR APPLY 1 PATCH TRANSDERMALLY ONCE A DAY 1 Active ibuprofen (ADVIL,MOTRIN) 800 MG tablet Take 800 mg by mouth every 8 (eight) hours if needed 1 Active Active Problems Problem Noted Date Diagnosed Date Cyst of kidney 08/18/2020 Disorder of kidney and/or ureter 05/27/2020 Hypertensive disorder 05/27/2020 Family History Medical History Relation Comments Cancer Mother Cancer Mother's Sister kidney cancer Relation Status Comments Father Mother Alive Mother's Sister Other Social History Tobacco Use Types Packs/Day Years Used Date Smoking Tobacco: Every Day Cigarettes Smokeless Tobacco: Current Sex and Gender Information Value Date Recorded Sex Assigned at Not on file Legal Sex Male 4:58 PM EST Gender Identity Not on file Sexual Orientation Not on file Last Filed Vital Signs Vital Sign Reading Time Taken Comments Blood Pressure 130/90 12/09/2020 3:51 PM EDT Pulse 72 12/09/2020 3:51 PM EDT Temperature - - Respiratory Rate - - Oxygen Saturation 97% 12/09/2020 3:51 PM EDT Inhaled Oxygen Concentration - - Weight 110 kg (242 lb 3.2 oz) 12/09/2020 3:51 PM EDT Height - - Body Mass Index - - Plan of Treatment Health Maintenance Due Date Last Done Comments Pneumococcal Vaccine: Pediat rics (0 to 5 Years) and At-Risk Patients (6 to 64 Years) (1 of 2 - PCV) 1981 Hepatitis B Vaccine (1 of 3 - 19+ 3-dose series) 02/23 Influenza Vaccine (#1) 2023 Colorectal Cancer Screening: Annual FOBT 02/24/2024 Colorectal Cancer Screening: Colonoscopy 02/24/2024 Colorectal Cancer Screening: Sigmoidoscopy 02/24/2024 Insurance Care Teams Gear Keeper Relationship Specialty Start Date End Date Toyin Dennis MD [address] [place], [place] [facility] - General 03/28/20
[2024-05-15 09:19] VITALS: BMI 30.6
== END 2024-05-15 10:22 | disposition home or self-care (01) ==
PROVIDERS: PCP Internal Medicine; Visit Provider Physician Assistant
DX: M17.0 Bilateral primary osteoarthritis of knee (principal); M23.91 Unspecified internal derangement of right knee
CPT/HCPCS: 20610; 99213

== ENCOUNTER → 2024-05-15 08:47 | Outpatient (BNVA) | payer OTHER, SELFPAY | PROVIDERS: PCP Internal Medicine; Visit Provider Physician Assistant | DX: M17.0 Bilateral primary osteoarthritis of knee (principal); M23.91 Unspecified internal derangement of right knee | CPT/HCPCS: 20610; 99212; J1010; J2003 ==

== ENCOUNTER 2024-06-18 09:10 | Outpatient (AMB) | payer OTHER, SELFPAY ==
--- NOTE | 2024-06-18 09:15 | MHC.OFFVIS ---
Vital Signs 06/18/24 09:22 Height 6 ft 2 in Weight 238 lb BMI 30.6 Intake Visit Reasons: INJ- B/L knee euflexxa #1 Intake Note: Brandon is a 49 year old male who presents today for bilateral knee Euflexxa injections #1. Allergies bee pollen [BEE STINGS] Allergy (Severe, Verified 06/18/24 09:23) ANAPHYLAXIS Bleach (Sodium Hypochlorite) [BLEACH (SODIUM HYPOCHLORITE)] Allergy (Severe, Verified 06/18/24 09:23) DIFF BREATHING Fish Containing Products Allergy (Severe, Verified 06/18/24 09:23) HIVES HPI HPI INJ- B/L knee euflexxa #1: Details: 49-year-old gentleman presents to the office today for Euflexxa injection 1. Bilateral knee PFSH Medical History Insomnia TERRY (generalized anxiety disorder) Physical exam Pneumonia Sleep apnea COVID-19 vaccine series completed History of COVID-19 Obesity (BMI 30.0-34.9) Left knee pain Right shoulder pain Nocturia Essential hypertension Right kidney mass Lung nodule Cholelithiasis Hypertension Asthma Juan Alberto Parkinson White pattern seen on electrocardiogram Surgical History S/P arthroscopy of right shoulder History of laparoscopic cholecystectomy History of cardiac catheterization Family History Son Heart murmur Daughter Heart disease Maternal Aunt Cancer Myocardial infarction Mother Cancer Father Heart disease Substance use disorder Sister Substance use disorder Social History Housing: Apartment Are you a primary critical care nurse specialist to a significant other at home: No Do you presently have visiting nurse or other home services: No Alcohol intake: never Patient Tobacco Use Status: Current everyday Tobacco user Tobacco use type: Cigarette Cigarettes Per Day: 10 Years Smoked: 25 e-Cigarette/Vaping Use: Never Used Second Hand Smoke Exposure: No service: No Current occupational status: unemployed Current occupation: rt handed Cognitive needs: No Hearing needs: No Vision needs: No Review of Systems Const All systems reviewed & are unremarkable except as noted in HPI and below Physical Exam Vital Signs: BMI result Body Mass Index 30.6 Const General: cooperative and no acute distress Orientation/consciousness: patient oriented x3 Resp Effort & Inspection: normal respiratory effort and able to speak in complete sentences Cardio Peripheral pulses: Peripheral pulses 2+ throughout Neuro General: patient oriented x3 Extrem Other: Right knee skin intact, no erythema or joint effusion. Lateral retropatellar tenderness. ROM full with crepitus. Positive steinmans. No ligamentous laxity. NVI. Left knee skin intact, no erythema or joint effusion. Tenderness along the medial joint line. ROM full with crepitus. Negative steinmans. No ligamentous laxity. NVI. Office Procedures AMB Joint Injection/Aspiration Joint Injection/Aspiration Primary Site: right knee Secondary Site: left knee Prep: site was prepped using aseptic technique, ethochloride spray was applied and injection warnings given Injected: in the joint Approach Used: anterolateral Procedure: The patient tolerated the procedure well Coding 93711 - Glenohumeral/Tronchanteric Bursa/Intraarticular Procedure code (CPT) selection complete Assessment & Plan Assessment & Plan (1) Patellofemoral arthritis of left knee: Code(s): M17.12 - Unilateral primary osteoarthritis, left knee Category: Medical (2) Patellofemoral arthritis of right knee: Code(s): M17.11 - Unilateral primary osteoarthritis, right knee Category: Medical Plan We discussed options today, which include steroid injection. The patient did consent to move forward with the #1 bilat knee euflexxa injection, which was tolerated well.? I recommended rest, ice and elevation and OTC antiinflammatories prn for discomfort.Patient will return in 1 week for #2. Coding Level of Care Code Procedure Only Diagnoses Patellofemoral arthritis of left knee M17.12 Patellofemoral arthritis of right knee M17.11 CPT Codes Coding - Joint 7: 33542 - Glenohumeral/Tronchanteric Bursa/Intraarticular ([id number])
[2024-06-18 09:22] VITALS: BMI 30.6
--- OUTSIDE RECORDS SUMMARY | 2024-06-18 09:29 | XMS_ITS | Clinical Summary ---
Author Organization [facility] Address [address] [place] [address] Phone Care Team Providers Care Geospatial Information Scientist Name Role Phone Toyin Dennis MD Primary Care Provider Allergies No known active allergies Medications amLODIPine [...] Cancer Screening: Sigmoidoscopy 02/24/2024 Insurance Care Teams Geospatial Information Scientist Relationship Specialty Start Date End Date Toyin Dennis MD [address] [place], [place] [facility] - General 03/28/20
== END 2024-06-18 11:14 | disposition home or self-care (01) ==
LOC: HO.HOS 09:11
PROVIDERS: PCP Internal Medicine; Visit Provider Physician Assistant
DX: M17.0 Bilateral primary osteoarthritis of knee (principal)
CPT/HCPCS: 20610

== ENCOUNTER → 2024-06-18 09:10 | Outpatient (BNVA) | payer OTHER, SELFPAY | PROVIDERS: PCP Internal Medicine; Visit Provider Physician Assistant | DX: M17.0 Bilateral primary osteoarthritis of knee (principal) | CPT/HCPCS: 20610; J7323 ==

== ENCOUNTER 2024-06-25 09:54 | Outpatient (AMB) | payer OTHER, SELFPAY ==
[2024-06-25 09:58] VITALS: BMI 30.6
--- NOTE | 2024-06-25 09:58 | A.OFFVIS_ITS ---
Vital Signs 06/25/24 09:58 Height 6 ft 2 in Weight 238 lb BMI 30.6 Intake Visit Reasons: INJ- B/L knee euflexxa #2 Intake Note: Brandon is a 49 year old male who presents today for bilateral knee Euflexxa injections #1. Patient reports having a constant pain at the medial aspect of the left knee. States that he has been limping, applying most of his weight on his right leg. He feels like his right knee will give out. Allergies bee pollen [BEE STINGS] Allergy (Severe, Verified 06/25/24 10:08) ANAPHYLAXIS Bleach (Sodium Hypochlorite) [BLEACH (SODIUM HYPOCHLORITE)] Allergy (Severe, Verified 06/25/24 10:08) DIFF BREATHING Fish Containing Products Allergy (Severe, Verified 06/25/24 10:08) HIVES HPI HPI INJ- B/L knee euflexxa #2: Details: 49 yo male returns to the office #2 euflexxa bilat knee PFSH Medical History Insomnia TERRY (generalized anxiety disorder) Physical exam Pneumonia Sleep apnea COVID-19 vaccine series completed History of COVID-19 Obesity (BMI 30.0-34.9) Left knee pain Right shoulder pain Nocturia Essential hypertension Right kidney mass Lung nodule Cholelithiasis Hypertension Asthma Juan Alberto Parkinson White pattern seen on electrocardiogram Surgical History S/P arthroscopy of right shoulder History of laparoscopic cholecystectomy History of cardiac catheterization Family History Son Heart murmur Daughter Heart disease Maternal Aunt Cancer Myocardial infarction Mother Cancer Father Heart disease Substance use disorder Sister Substance use disorder Social History Housing: Apartment Are you a primary pediatric acute care unit nurse to a significant other at home: No Do you presently have visiting nurse or other home services: No Alcohol intake: never Patient Tobacco Use Status: Current everyday Tobacco user Tobacco use type: Cigarette Cigarettes Per Day: 10 Years Smoked: 25 e-Cigarette/Vaping Use: Never Used Second Hand Smoke Exposure: No service: No Current occupational status: unemployed Current occupation: rt handed Cognitive needs: No Hearing needs: No Vision needs: No Review of Systems Const All systems reviewed & are unremarkable except as noted in HPI and below Physical Exam Vital Signs: BMI result Body Mass Index 30.6 Const General: cooperative and no acute distress Orientation/consciousness: patient oriented x3 Resp Effort & Inspection: normal respiratory effort and able to speak in complete sentences Cardio Peripheral pulses: Peripheral pulses 2+ throughout Neuro General: patient oriented x3 Extrem Other: Right knee skin intact, no erythema or joint effusion. Lateral retropatellar tenderness. ROM full with crepitus. Positive steinmans. No ligamentous laxity. NVI. Left knee skin intact, no erythema or joint effusion. Tenderness along the medial joint line. ROM full with crepitus. Negative steinmans. No ligamentous laxity. NVI. Office Procedures AMB Joint Injection/Aspiration Joint Injection/Aspiration Details: #2 euflexxa Primary Site: right knee Secondary Site: left knee Prep: site was prepped using aseptic technique, ethochloride spray was applied and injection warnings given Injected: in the joint Approach Used: anterolateral Procedure: The patient tolerated the procedure well Coding 54053 - Glenohumeral/Tronchanteric Bursa/Intraarticular Procedure code (CPT) selection complete Assessment & Plan Assessment & Plan (1) Patellofemoral arthritis of left knee: Code(s): M17.12 - Unilateral primary osteoarthritis, left knee Category: Medical (2) Patellofemoral arthritis of right knee: Code(s): M17.11 - Unilateral primary osteoarthritis, right knee Category: Medical Plan We discussed options today, which include steroid injection. The patient did consent to move forward with the #1 bilat knee euflexxa injection, which was tolerated well.? I recommended rest, ice and elevation and OTC antiinflammatories prn for discomfort.Patient will return in 1 week for #3. Coding Level of Care Code Procedure Only Diagnoses Patellofemoral arthritis of left knee M17.12 Patellofemoral arthritis of right knee M17.11 CPT Codes Coding - Joint 7: 75687 - Glenohumeral/Tronchanteric Bursa/Intraarticular ([id number])
--- OUTSIDE RECORDS SUMMARY | 2024-06-25 11:21 | XMS_ITS | Clinical Summary ---
Author Organization [facility] Address [address] [place] [address] Phone Care Team Providers Care Judo Teacher Name Role Phone Toyin Dennis MD Primary Care Provider [phone] Allergies No known active allergies Medications amLODIPine [...] Due Date Last Done Comments Pneumococcal Vaccine: Peds ( 0 to 5 Years) and At-Risk Patients (6 to 49 Years) (1 of 2 - PCV) 1981 Hepatitis B Vaccine (1 of 3 - 19+ 3-dose series) 02/23 Colorectal Cancer Screening: Annual FOBT 02/24/2024 Colorectal Cancer Screening: Colonoscopy 02/24/2024 Colorectal Cancer Screening: Sigmoidoscopy 02/24/2024 Influenza Vaccine (Season Ended) 2024 Insurance Care Teams Judo Teacher Relationship Specialty Start Date End Date Toyin Dennis MD [address] [place], [place] [facility] - General 03/28/20
== END 2024-06-25 11:10 | disposition home or self-care (01) ==
LOC: HO.HOS 09:55
PROVIDERS: PCP Internal Medicine; Visit Provider Physician Assistant
DX: M17.0 Bilateral primary osteoarthritis of knee (principal)
CPT/HCPCS: 20610

== ENCOUNTER → 2024-06-25 09:54 | Outpatient (BNVA) | payer OTHER, SELFPAY | PROVIDERS: PCP Internal Medicine; Visit Provider Physician Assistant | DX: M17.0 Bilateral primary osteoarthritis of knee (principal) | CPT/HCPCS: 20610; J7323 ==

== ENCOUNTER 2024-07-01 10:55 | Outpatient (AMB) | payer OTHER, SELFPAY ==
--- NOTE | 2024-07-01 11:01 | A.OFFVIS_ITS ---
Intake Visit Reasons: INJ- B/L knee euflexxa #3 Intake Note: Brandon is a 49 year old male who presents today for bilateral knee Euflexxa injections #3. Allergies bee pollen [BEE STINGS] Allergy (Severe, Verified 07/02/24 13:40) ANAPHYLAXIS Bleach (Sodium Hypochlorite) [BLEACH (SODIUM HYPOCHLORITE)] Allergy (Severe, Verified 07/02/24 13:40) DIFF BREATHING Fish Containing Products Allergy (Severe, Verified 07/02/24 13:40) HIVES Medication List - Last Reconciled 07/03/24 by Arnie Hill PA-C albuterol sulfate 90 mcg/actuation (ProAir RespiClick) 2 inhalations inhalation Q6H PRN 30 days albuterol sulfate 2.5 mg (3 mL) inhalation Q4-6H PRN amlodipine 2.5 mg PO DAILY 90 days cyclobenzaprine 10 mg PO BEDTIME PRN 30 days ipratropium-albuterol 0.5 mg-3 mg(2.5 mg base)/3 mL 3 mL inhalation Q4-6H PRN 30 days HPI HPI INJ- B/L knee euflexxa #3: Details: 49 yo male returns to the office # 3 euflexxa bilat knee PFSH Medical History Insomnia TERRY (generalized anxiety disorder) Physical exam Pneumonia Sleep apnea COVID-19 vaccine series completed History of COVID-19 Obesity (BMI 30.0-34.9) Left knee pain Right shoulder pain Nocturia Essential hypertension Right kidney mass Lung nodule Cholelithiasis Hypertension Asthma Juan Alberto Parkinson White pattern seen on electrocardiogram Surgical History S/P arthroscopy of right shoulder History of laparoscopic cholecystectomy History of cardiac catheterization Family History Son Heart murmur Daughter Heart disease Maternal Aunt Cancer Myocardial infarction Mother Cancer Father Heart disease Substance use disorder Sister Substance use disorder Social History Housing: Apartment Are you a primary health care recruiter to a significant other at home: No Do you presently have visiting nurse or other home services: No Alcohol intake: never Patient Tobacco Use Status: Current everyday Tobacco user Tobacco use type: Cigarette Cigarettes Per Day: 10 Years Smoked: 25 e-Cigarette/Vaping Use: Never Used Second Hand Smoke Exposure: No service: No Current occupational status: unemployed Current occupation: rt handed Cognitive needs: No Hearing needs: No Vision needs: No Review of Systems Const All systems reviewed & are unremarkable except as noted in HPI and below Physical Exam Const General: cooperative and no acute distress Orientation/consciousness: patient oriented x3 Resp Effort & Inspection: normal respiratory effort and able to speak in complete sentences Cardio Peripheral pulses: Peripheral pulses 2+ throughout Neuro General: patient oriented x3 Extrem Other: Right knee skin intact, no erythema or joint effusion. Lateral retropatellar tenderness. ROM full with crepitus. Positive steinmans. No ligamentous laxity. NVI. Left knee skin intact, no erythema or joint effusion. Tenderness along the medial joint line. ROM full with crepitus. Negative steinmans. No ligamentous laxity. NVI. Office Procedures AMB Joint Injection/Aspiration Joint Injection/Aspiration Primary Site: right knee Secondary Site: left knee Prep: site was prepped using aseptic technique, ethochloride spray was applied and injection warnings given Injected: in the joint Approach Used: anterolateral Procedure: The patient tolerated the procedure well Coding 37926 - Glenohumeral/Tronchanteric Bursa/Intraarticular Procedure code (CPT) selection complete Assessment & Plan Assessment & Plan (1) Patellofemoral arthritis of left knee: Code(s): M17.12 - Unilateral primary osteoarthritis, left knee Category: Medical (2) Patellofemoral arthritis of right knee: Code(s): M17.11 - Unilateral primary osteoarthritis, right knee Category: Medical Plan We discussed options today, which include steroid injection. The patient did consent to move forward with the #1 bilat knee euflexxa injection, which was tolerated well.? I recommended rest, ice and elevation and OTC antii nflammatories prn for discomfort.If symptoms persist or worsen he will contact our office, otherwise, f/u prn Coding Level of Care Code Procedure Only Diagnoses Patellofemoral arthritis of left knee M17.12 Patellofemoral arthritis of right knee M17.11 CPT Codes Coding - Joint 7: 08207 - Glenohumeral/Tronchanteric Bursa/Intraarticular ([id number])
--- OUTSIDE RECORDS SUMMARY | 2024-07-01 13:00 | XMS_ITS | Clinical Summary ---
Author Organization [facility] Address [address] [place] [address] Phone Care Team Providers Care Industrial Maintenance Millwright Name Role Phone Toyin Dennis MD Primary Care Provider [phone] Allergies No known active allergies Medications amLODIPine [...] Health Maintenance Due Date Last Done Comments Hepatitis B Vaccine (1 of 3 - 19+ 3-dose series) 02/23 Pneumococcal Vaccine: Peds ( 0 to 5 Years) and At-Risk Patients (6 to 49 Years) (1 of 2 - PCV) 1994 Colorectal Cancer Screening: Annual FOBT 02/24/2024 Colorectal Cancer Screening: Colonoscopy 02/24/2024 Colorectal Cancer Screening: Sigmoidoscopy 02/24/2024 Influenza Vaccine (Season Ended) 2024 Insurance Care Teams Industrial Maintenance Millwright Relationship Specialty Start Date End Date Toyin Dennis MD [address] [place], [place] [facility] - General 03/28/20
== END 2024-07-01 12:06 | disposition home or self-care (01) ==
LOC: HO.HOS 10:55
PROVIDERS: PCP Internal Medicine; Visit Provider Physician Assistant
DX: M17.0 Bilateral primary osteoarthritis of knee (principal)
CPT/HCPCS: 20610

== ENCOUNTER → 2024-07-01 10:55 | Outpatient (BNVA) | payer OTHER, SELFPAY | PROVIDERS: PCP Internal Medicine; Visit Provider Physician Assistant | DX: M17.0 Bilateral primary osteoarthritis of knee (principal) | CPT/HCPCS: 20610; J7323 ==

== ENCOUNTER 2024-07-02 13:23 | Outpatient (AMB) | payer OTHER, SELFPAY ==
[2024-07-02 13:28] VITALS: BP 132/86; BMI 29.9
--- NOTE | 2024-07-02 13:28 | A.OFFPC_ITS ---
Vital Signs 07/02/24 13:28 Height 6 ft 2 in Weight 233 lb BMI 29.9 BP 132/86 Blood Pressure Location Lt brachial Position Sitting Intake Visit Reasons: depression, bp Intake Note: patient here for a follow up depression, bp Blender Machine Operator Required: No Accompanied by: Self / Same As Patient Allergies bee pollen [BEE STINGS] Allergy (Severe, Verified 07/02/24 13:40) ANAPHYLAXIS Bleach (Sodium Hypochlorite) [BLEACH (SODIUM HYPOCHLORITE)] Allergy (Severe, Verified 07/02/24 13:40) DIFF BREATHING Fish Containing Products Allergy (Severe, Verified 07/02/24 13:40) HIVES Medication List - Last Reconciled 07/02/24 by Toyin Grace MD albuterol sulfate 90 mcg/actuation (ProAir RespiClick) 2 inhalations inhalation Q6H PRN 30 days albuterol sulfate 2.5 mg (3 mL) inhalation Q4-6H PRN amlodipine 2.5 mg PO DAILY 90 days cyclobenzaprine 10 mg PO BEDTIME PRN 30 days ipratropium-albuterol 0.5 mg-3 mg(2.5 mg base)/3 mL 3 mL inhalation Q4-6H PRN 30 days Tobacco use date assessed: 07/02/24 Dental Screening Dental Screen Date: 07/02/24 Did you have a dental visit in the last 12 months?: Yes Did you have a dental problem in the last 6 months where you did not have access to dental care?: No Was dental information given to patient?: Patient has dentist HPI HPI Comments History of Present Illness Details The patient is a 49-year-old male presenting with a follow-up for hypertension, knee pain, and impaired glucose tolerance. He experienced knee pain necessitating orthopedic intervention, including cortisone and gel injections in both knees. Imaging showed no significant abnormalities. The patient has experienced excessive thirst and urination, with fasting glucose at 136 mg/dL and recent weight loss. Hypertension remains well controlled. He also has asthma stable with rescue inhaler that he used less than a month. [facility] Medical History (Updated 07/02/24 @ 14:06 by Toyin Grace MD) Insomnia TERRY (generalized anxiety disorder) Physical exam Pneumonia Sleep apnea COVID-19 vaccine series completed History of COVID-19 Obesity (BMI 30.0-34.9) Left knee pain Right shoulder pain Nocturia Essential hypertension Right kidney mass Lung nodule Cholelithiasis Hypertension Asthma Juan Alberto Parkinson White pattern seen on electrocardiogram Surgical History S/P arthroscopy of right shoulder History of laparoscopic cholecystectomy History of cardiac catheterization Family History Son Heart murmur Daughter Heart disease Maternal Aunt Cancer Myocardial infarction Mother Cancer Father Heart disease Substance use disorder Sister Substance use disorder Social History Housing: Apartment Are you a primary family day carer to a significant other at home: No Do you presently have visiting nurse or other home services: No Alcohol intake: never Patient Tobacco Use Status: Current everyday Tobacco user Tobacco use type: Cigarette Cigarettes Per Day: 10 Years Smoked: 25 e-Cigarette/Vaping Use: Never Used Second Hand Smoke Exposure: No service: No Current occupational status: unemployed Current occupation: rt handed Cognitive needs: No Hearing needs: No Vision needs: No Questionnaire PHQ-9 Over the last 2 weeks, how often have you been bothered by any of the following problems? 1. Little interest or pleasure in doing things: not at all 2. Feeling down, depressed, or hopeless: not at all 3. Trouble falling or staying asleep, or sleeping too much: not at all 4. Feeling tired or having little energy: not at all 5. Poor appetite or overeating: not at all 6. Feeling bad about yourself - or that you are a failure or have let yourself or your family down: not at all 7. Trouble concentrating on things, such as reading the newspaper or watching television: not at all 8. Moving or speaking so slowly that other people could have noticed. Or the opposite - being so fidgety or restless that you have been moving around a lot more than usual: not at all 9. Thoughts that you would be better off or of hurting yourself in some way: not at all Total score: 0 Depression Screening Interpretation: Negative Depression Screening Done: Yes 78966 - PHQ-9 Billing: Yes Source: Developed by Drs. Carlos Enrique García, Lui Vigil and colleagues, with an educational leah from [employer]. Thrive Questionnaire Date Thrive assessed: 07/02/24 I am a: Patient What is your living situation today?: I have a steady place to live Within the past 12 months, did the food you bought not last and you didn't have the money to get more?: Sometimes True Within the past 12 months, did you worry whether your food would run out before you got money to buy more?: Sometimes True Do you have trouble paying for medicines?: No Do you have trouble getting transportation to medical appointments?: No Do you have trouble paying your heating and electricity bill?: I choose not to answer this question Do you have trouble taking care of your child, family member or friend?: I choose not to answer this question Do you have trouble with day-to-day activities such as bathing, preparing meals, shopping, managing finances, etc.?: No Are you currently unemployed and looking for a job?: I choose not to answer this question Are you interested in more education?: No Please select the resources that you would like help with: None Currently or been in a relationship where the following occur: I choose not to answer THRIVE Score: 2 AUDIT C Alcohol Use Questionnaire (AUDIT-C) 1. How often do you have a drink containing alcohol?: Never Total Score: 0 Score Reviewed/Action Taken: No TERRY-7 AMB Questionnaire TERRY-7 Date TERRY - 7 assessed: 07/02/24 Feeling nervous, anxious, or on edge: 1 = Several days Not being able to stop or control worryin = Not at all Worrying too much about different things: 0 = Not at all Trouble relaxin = Not at all Being so restless that it is hard to sit still: 0 = Not at all Becoming easily annoyed or irritable: 0 = Not at all Feeling afraid as if something awful might happen: 0 = Not at all Total TERRY-7 score (0-4 normal; 5-9 mild; 10-14 moderate; 15-21 severe): 1 Source: Developed by Drs. Carlos Enrique García, Lui Vigil and colleagues, with an educational leah from [employer]. TERRY-7 Assessment Billing TERRY-7 Assessment Tool: TERRY-7 Assessment 39795 Review of Systems Const All systems reviewed & are unremarkable except as noted in HPI and below Card Denies chest pain at rest, Denies chest pain with activity, Denies edema, Denies irregular heart rhythm, Denies claudication, Denies dyspnea, Denies dyspnea on exertion, Denies orthopnea, Denies paroxysmal nocturnal dyspnea and Denies slow heart rate Resp Denies cough, Denies dyspnea and Denies dyspnea on exertion GI Denies abdominal pain, Denies change in bowel habits, Denies excessive flatus, Denies nausea and Denies vomiting Denies urinary hesitancy, Denies urinary incontinence and Denies urinary urgency Musc Denies atrophy, Denies deformity and Denies limited range of motion Skin/Breast Denies bleeding lesions, Denies changing lesions and Denies rash Physical exam (Primary Care) Vital Signs: Last Vital Signs BP 132/86 07/02/24 13:28 BMI result Body Mass Index 29.9 Tobacco/Smoking Status: Tobacco use Status Tobacco use date assessed 07/02/24 07/02/24 13:33 Patient Tobacco Use Status Current everyday Tobacco 07/02/24 13:33 Tobacco use type Cigarette 07/02/24 13:33 e-Cigarette/Vaping Use Never Used 07/02/24 13:33 PHQ-9: PHQ-9 Score PHQ-9: Total score 0 07/02/24 13:51 Depression Screening Interpretation: Negative Thrive Assessment: Date of Thrive Assessment Date Thrive assessed 07/02/24 07/02/24 13:33 Currently or been in a relationship where the following occur: I choose not to answer Resp Effort & Inspection: normal respiratory effort Auscultation: clear to auscultation bilaterally Cardio Jugular venous distension: no JVD Rate: regular rate Rhythm: regular rhythm Heart sounds: S1 normal heart sound present and S2 normal heart sound present Extrem General: Yes full ROM Results AMB Hemoglobin A1c AMB Hemoglobin A1c 6.2 % Last Edit by MICKEY Calhoun on 07/02/24 14:0 5 Results Reviewed Results Reviewed: Laboratory Last Values Hgb A1c (Clinic) 6.2 % (4.0-6.0) H 07/02/24 13:51 Coding Level of Care Code Est Pt Level 4 (24787) Complex EM visit Add On G2211 Diagnoses Impaired glucose tolerance R73.02 Patellofemoral arthritis of left knee M17.12 Mild persistent asthma without complication J45.30 Asthma severity: mild Asthma persistence: persistent Asthma complication type: uncomplicated Essential hypertension I10 Additional Codes TERRY-7 Assessment Billing - TERRY-7 Assessment Tool: TERRY-7 Assessment 74687 ([id number]) PHQ-9 - 04763 - PHQ-9 Billing: Yes ([id number]) Time Spent (min) 23 Assessment & Plan Assessment & Plan (1) Impaired glucose tolerance: Code(s): R73.02 - Impaired glucose tolerance (oral) Category: Medical (2) Patellofemoral arthritis of left knee: Code(s): M17.12 - Unilateral primary osteoarthritis, left knee Category: Medical (3) Asthma: Comment: uses Anoro Ellipta Code(s): J45.909 - Unspecified asthma, uncomplicated Category: Medical Qualifiers: Asthma severity: mild Asthma persistence: persistent Asthma complication type: uncomplicated Qualified Code(s): J45.30 - Mild persistent asthma, uncomplicated (4) Essential hypertension: Code(s): I10 - Essential (primary) hypertension Category: Medical Plan Hypertension management continues with no changes, given current adequate control. For knee arthralgia, continued orthopedic assessment and gel injections are advised. Suspected diabetes prompts ordering an A1c test for diagnosis confirmation, with lifestyle modifications encouraged. Allergy considerations suggest avoiding ibuprofen, and alternative analgesics should be used. Continuous follow-up and evaluation are planned following results. Patient was informed and verbally consented to the use of an ambient scribe for clinic note documentation during this visit. I discussed with the patient the management of his blood pressure and emphasized maintaining control with current medication. For knee pain, we discussed the o ngoing orthopedic treatment, options available depending on response to current interventions, and the importance of not over-exerting the knees at home. We reviewed the potential for diabetes given the glucose reading, intense thirst, urination, and weight loss, and agreed to pursue an A1c test to confirm or exclude diabetes. I addressed his allergy to ibuprofen, recommending alternative pain management options. Follow-up was agreed upon for results review and further management planning. Orders: Orders Lipid Panel 4 Months E78.5 - Hyperlipidemia, unspecified Comprehensive [place]. Panel Fast 4 Months R73.02 - Impaired glucose tolerance (oral) Vitamin D 25-OH Total 4 Months E55.9 - Vitamin D deficiency, unspecified Complete Blood Count Auto Diff 4 Months D72.829 - Elevated white blood cell count, unspecified AMB Hemoglobin A1c Today R73.02 - Impaired glucose tolerance (oral) Medications: Refilled cyclobenzaprine 10 mg PO BEDTIME PRN 30 tabs 0RF muscle spasm 30 days
--- OUTSIDE RECORDS SUMMARY | 2024-07-02 16:23 | XMS_ITS | Clinical Summary ---
Author Organization [facility] Address [address] [place] [address] Phone Care Team Providers Care Elderly Sitter Name Role Phone Toyin Dennis MD Primary Care Provider [phone] Allergies No known active allergies Medications amLODIPine [...] Vaccine (Season Ended) 2024 Insurance Care Teams Elderly Sitter Relationship Specialty Start Date End Date Toyin Dennis MD [address] [place], [place] [facility] - General 03/28/20
== END 2024-07-02 14:06 | disposition home or self-care (01) ==
LOC: HO.HMCH 13:24
PROVIDERS: PCP Internal Medicine; Visit Provider Internal Medicine
DX: R73.02 Impaired glucose tolerance (oral) (principal); M17.12 Unilateral primary osteoarthritis, left knee; J45.30 Mild persistent asthma, uncomplicated; I10 Essential (primary) hypertension

== ENCOUNTER → 2024-07-02 13:23 | Outpatient (BNVA) | payer OTHER, SELFPAY | PROVIDERS: PCP Internal Medicine; Visit Provider Internal Medicine | DX: R73.02 Impaired glucose tolerance (oral) (principal); M17.12 Unilateral primary osteoarthritis, left knee; J45.30 Mild persistent asthma, uncomplicated; I10 Essential (primary) hypertension | CPT/HCPCS: 83036; 96127; 99212 ==

== ENCOUNTER 2024-11-05 14:57 | Outpatient (AMB) | payer OTHER, SELFPAY ==
--- OUTSIDE RECORDS SUMMARY | 2024-11-05 15:01 | XMS_ITS | Clinical Summary ---
Author Organization [facility] Address [address] [place] [address] Phone Care Team Providers Care Repairer Veneer Sheet Name Role Phone Toyin Dennis MD Primary Care Provider [phone] Allergies No known active allergies Medications amLODIPine [...] Colorectal Cancer Screening: Sigmoidoscopy 02/24/2024 Influenza Vaccine (#1) 2024 Insurance Care Teams Repairer Veneer Sheet Relationship Specialty Start Date End Date Toyin Dennis MD [address] [place], [place] [facility] - General 03/28/20
[2024-11-05 15:18] VITALS: BP 150/100; PULSE 72; O2SAT 97; BMI 29.7
--- NOTE | 2024-11-05 15:18 | MHC.PC.OV ---
Vital Signs 11/05/24 15:18 Height 6 ft 2 in Weight 231 lb 4 oz BMI 29.7 BP 150/100 H Pulse 72 Pulse Oximetry (%) 97 Intake Visit Reasons: Follow up/ A1C check Material Mixer Required: No Accompanied by: Self / Same As Patient Allergies bee pollen (BEE STINGS) Allergy (Severe, Verified 11/05/24 15:40) ANAPHYLAXIS Bleach (Sodium Hypochlorite) (BLEACH (SODIUM HYPOCHLORITE)) Allergy (Severe, Verified 11/05/24 15:40) DIFF BREATHING Fish Containing Products Allergy (Severe, Verified 11/05/24 15:40) HIVES Medication List - Last Reconciled 11/05/24 by Toyin Grace MD albuterol sulfate 90 mcg/actuation (ProAir RespiClick) 2 inhalations inhalation Q6H PRN 30 days albuterol sulfate 2.5 mg (3 mL) inhalation Q4-6H PRN amlodipine 2.5 mg PO DAILY 90 days cyclobenzaprine 10 mg PO BEDTIME PRN 30 days ipratropium-albuterol 0.5 mg-3 mg(2.5 mg base)/3 mL 3 mL inhalation Q4-6H PRN 30 days Tobacco use date assessed: 07/02/24 Dental Screening Dental Screen Date: 07/02/24 HPI HPI Comments History of Present Illness Details The patient is a 49-year-old male presenting for follow-up of chronic conditions, specifically prediabetes and hypertension management. The patient's hemoglobin A1c was recently measured at 6%, indicating good control of his prediabetes. He was previously diagnosed with borderline glucose tolerance and has since lost weight, which has positively impacted his condition. Complains of left knee pain and will see ortho next week. Has tried NSAIDs with no significant relief. Will give tramadol for few days. The patient has a history of hypertension, previously managed with amlodipine 2.5 mg. Due to elevated blood pressure readings, the dosage was increased to 5 mg to improve control. He did not took his amlodipine today. He also has asthma well control with rescue inhaler as needed. Was advised to quit smoking. Also has obstructive sleep apnea on CPAP machine. The patient reports allergies to bee stings, bleach, and fat-containing products, which are relevant to his medical management. He has successfully abstained from alcohol for seven years, having participated in a 12-step program and Alcoholics Anonymous, which has contributed to his overall health improvement. [facility] Medical History Insomnia TERRY (generalized anxiety disorder) Physical exam Pneumonia Sleep apnea COVID-19 vaccine series completed History of COVID-19 Obesity (BMI 30.0-34.9) Left knee pain Right shoulder pain Nocturia Essential hypertension Right kidney mass Lung nodule Cholelithiasis Hypertension Asthma Juan Alberto Parkinson White pattern seen on electrocardiogram Surgical History S/P arthroscopy of right shoulder History of laparoscopic cholecystectomy History of cardiac catheterization Family History Son Heart murmur Daughter Heart disease Maternal Aunt Cancer Myocardial infarction Mother Cancer Father Heart disease Substance use disorder Sister Substance use disorder Social History Housing: Apartment Are you a primary child care center administrator to a significant other at home: No Do you presently have visiting nurse or other home services: No Alcohol intake: never Patient Tobacco Use Status: Current everyday Tobacco user Tobacco use type: Cigarette Cigarettes Per Day: 10 Years Smoked: 25 e-Cigarette/Vaping Use: Never Used Second Hand Smoke Exposure: No service: No Current occupational status: unemployed Current occupation: rt handed Cognitive needs: No Hearing needs: No Vision needs: No Questionnaire PHQ-9 Over the last 2 weeks, how often have you been bothered by any of the following problems? 1. Little interest or pleasure in doing things: not at all 2. Feeling down, depressed, or hopeless: not at all 3. Trouble falling or staying asleep, or sleeping too much: several days 4. Feeling tired or having little energy: several days 5. Poor appetite or overeating: several days 6. Feeling bad about yourself - or that you are a failure or have let yourself or your family down: not at all 7. Trouble concentrating on things, such as reading the newspaper or watching television: several days 8. Moving or speaking so slowly that other people could have noticed. Or the opposite - being so fidgety or restless that you have been moving around a lot more than usual: not at all 9. Thoughts that you would be better off or of hurting yourself in some way: not at all Total score: 4 Depression Screening Interpretation: Positive Depression Screening Follow-up: Existing condition and Follow-up Visit Requested Depression Screening Done: Yes 54167 - PHQ-9 Billing: Yes Source: Developed by Drs. Carlos Enrique García, Genna Das, Lui Haskins and colleagues, with an educational leah from [employer]. Thrive Questionnaire Date Thrive assessed: 11/05/24 I am a: Patient What is your living situation today?: I have a steady place to live Within the past 12 months, did the food you bought not last and you didn't have the money to get more?: I choose not to answer this question Within the past 12 months, did you worry whether your food would run out before you got money to buy more?: I choose not to answer this question Do you have trouble paying for medicines?: No Do you have trouble getting transportation to medical appointments?: No Do you have trouble paying your heating and electricity bill?: I choose not to answer this question Do you have trouble taking care of your child, family member or friend?: No Do you have trouble with day-to-day activities such as bathing, preparing meals, shopping, managing finances, etc.?: Yes Are you currently unemployed and looking for a job?: I choose not to answer this question Are you interested in more education?: No Please select the resources that you would like help with: Childcare Currently or been in a relationship where the following occur: I choose not to answer THRIVE Score: 0 AUDIT C Alcohol Use Questionnaire (AUDIT-C) 1. How often do you have a drink containing alcohol?: Never 2. How many drinks containing alcohol do you have on a typical day when you are drinking?: 1 or 2 3. How often do you have six or more drinks on one occasion?: Never Total Score: 0 Score Reviewed/Action Taken: No TERRY-7 AMB Questionnaire TERRY-7 Date TERRY - 7 assessed: 07/02/24 Feeling nervous, anxious, or on edge: 1 = Several days Not being able to stop or control worryin = Several days Worrying too much about different things: 1 = Several days Trouble relaxin = Several days Being so restless that it is hard to sit still: 1 = Several days Becoming easily annoyed or irritable: 1 = Several days Feeling afraid as if something awful might happen: 1 = Several days Total TERRY-7 score (0-4 normal; 5-9 mild; 10-14 moderate; 15-21 severe): 7 Source: Developed by Drs. Carlos Enrique García, Genna Das, Lui Haskins and colleagues, with an educational leah from [employer]. TERRY-7 Assessment Billing TERRY-7 Assessment Tool: TERRY-7 Assessment 26356 ACT Questionnaire In the past 4 weeks, how much of the time did your asthma keep you from getting as much done at work, school or at home?: None of the time During the past 4 weeks, how often have you had shortness of breath?: Not at all During the past 4 weeks, how often did your asthma symptoms wake you up at night or earlier than usual in the morning?: Not at all During the past 4 weeks, how often have you had to use your rescue inhaler or nebulizer medication?: Not at all How would you rate your asthma control during the past 4 weeks?: Well controlled ACT Interpretation: Negative Score: 24 Review of Systems Const All systems reviewed & are unremarkable except as noted in HPI and below Card Denies chest pain at rest, Denies chest pain with activity, Denies edema, Denies irregular heart rhythm, Denies claudication, Denies dyspnea, Denies dyspnea on exertion, Denies orthopnea, Denies paroxysmal nocturnal dyspnea and Denies slow heart rate Resp Denies cough, Denies dyspnea and Denies dyspnea on exertion Skin/Breast Denies bleeding lesions, Denies changing lesions and Denies rash Physical exam (Primary Care) Vital Signs: Last Vital Signs Pulse 72 11/05/24 15:18 BP 150/100 H 11/05/24 15:18 Pulse Ox 97 11/05/24 15:18 BMI result Body Mass Index 29.7 Tobacco/Smoking Status: Tobacco use Status Tobacco use date assessed 07/02/24 11/05/24 15:25 Patient Tobacco Use Status Current everyday Tobacco 11/05/24 15:25 Tobacco use type Cigarette 11/05/24 15:25 e-Cigarette/Vaping Use Never Used 11/05/24 15:25 PHQ-9: PHQ-9 Score PHQ-9: Total score 4 11/05/24 15:44 Depression Screening Interpretation: Positive Depression Screening Follow-up: Existing condition and Follow-up Visit Requested Thrive Assessment: Date of Thrive Assessment Date Thrive assessed 11/05/24 11/05/24 15:25 Currently or been in a relationship where the following occur: I choose not to answer Resp Effort & Inspection: normal respiratory effort Auscultation: clear to auscultation bilaterally Cardio Jugular venous distension: no JVD Rate: regular rate Rhythm: regular rhythm Heart sounds: S1 normal heart sound present and S2 normal heart sound present Extrem General: Yes full ROM Results AMB Hemoglobin A1c AMB Hemoglobin A1c 6.0 % Last Edit by Lynsey Alexis CMA on 11/05/24 15:27 Results Reviewed Results Reviewed: Laboratory Last Values Hgb A1c (Clinic) 6.0 % (4.0-6.0) 11/05/24 15:22 Coding Level of Care Code Est Pt Level 4 (70532) Complex EM visit Add On G2211 Diagnoses Essential hypertension I10 Impaired glucose tolerance R73.02 Patellofemoral arthritis of left knee M17.12 Mild persistent asthma without complication J45.30 Asthma severity: mild Asthma persistence: persistent Asthma complication type: uncomplicated GUSTAVO (obstructive sleep apnea) G47.33 Additional Codes Asthma Control Questionnaire - ACT Interpretation: Negative ([id number]) TERRY-7 Assessment Billing - TERRY-7 Assessment Tool: TERRY-7 Assessment 43423 ([id number]) PHQ-9 - 33790 - PHQ-9 Billing: Yes ([id number]) Time Spent (min) 23 Assessment & Plan Assessment & Plan (1) Essential hypertension: Code(s): I10 - Essential (primary) hypertension Category: Medical (2) Impaired glucose tolerance: Code(s): R73.02 - Impaired glucose tolerance (oral) Category: Medical (3) Patellofemoral arthritis of left knee: Code(s): M17.12 - Unilateral primary osteoarthritis, left knee Category: Medical (4) Asthma: Comment: uses Anoro Ellipta Code(s): J45.909 - Unspecified asthma, uncomplicated Category: Medical Qualifiers: Asthma severity: mild Asthma persistence: persistent Asthma complication type: uncomplicated Qualified Code(s): J45.30 - Mild persistent asthma, uncomplicated (5) GUSTAVO (obstructive sleep apnea): Code(s): G47.33 - Obstructive sleep apnea (adult) (pediatric) Category: Medical Plan The patient's prediabetes is currently well-managed with a hemoglobin A1c of 6%. Continued weight management is advised to further improve glucose tolerance. For hypertension, the patient's medication regimen has been adjusted to amlodipine 5 mg to better control blood pressure. Regular monitoring of blood pressure is recommended to assess the effectiveness of this adjustment. Patient was informed and verbally consented to the use of an ambient scribe for clinic note documentation during this visit. Orders: Orders AMB Hemoglobin A1c 11/05/24 Z13.9 - Encounter for screening, unspecified Lipid Panel 11/05/24 E78.5 - Hyperlipidemia, unspecified Comprehensive [place]. Panel Fast 11/05/24 I10 - Essential (primary) hypertension Medications: New amlodipine 5 mg PO DAILY 90 tabs 1RF 90 days tramadol 50 mg PO BID PRN 6 tabs 0RF pain 3 days Discontinued amlodipine Discontinued Reason: Patient Completed Course 2.5 mg PO DAILY 90 days 90 tabs 2RF I10 - Essential (primary) hypertension
== END 2024-11-05 15:57 | disposition home or self-care (01) ==
LOC: HO.HMCH 14:57
PROVIDERS: PCP Internal Medicine; Visit Provider Internal Medicine
DX: Z13.9 Encounter for screening, unspecified (principal)

== ENCOUNTER → 2024-11-05 14:57 | Outpatient (BNVA) | payer OTHER, SELFPAY | PROVIDERS: PCP Internal Medicine; Visit Provider Internal Medicine | DX: R73.03 Prediabetes (principal); I10 Essential (primary) hypertension; M25.561 Pain in right knee; M25.562 Pain in left knee; R73.02 Impaired glucose tolerance (oral); M17.12 Unilateral primary osteoarthritis, left knee; J45.30 Mild persistent asthma, uncomplicated; G47.33 Obstructive sleep apnea (adult) (pediatric) | CPT/HCPCS: 83036; 96127; 96160; 99212 ==

== ENCOUNTER 2024-11-09 11:33 | Outpatient (AMB) | payer OTHER, SELFPAY ==
--- NOTE | 2024-11-09 11:37 | A.OFFVIS_ITS ---
Vital Signs 11/09/24 11:47 Height 6 ft 2 in Weight 231 lb BMI 29.7 Intake Visit Reasons: OV-B/L knee pain-discuss other treatment option Intake Note: Brandon is a 49 year old male who presents today for a follow up of bilateral knee OA. At patient last visit on 07/01/24 he was given his third Euflexxa injection. Patient reports injections provided him with 2 months of relief. States his left knee causes him the most discomfort. He recently was seen by his PCP who provided him with a prescription of tramadol to help with his pain until he is seen here in office. He is requesting cortisone injections today and discuss possible surgical intervention. Allergies bee pollen (BEE STINGS) Allergy (Severe, Verified 11/09/24 11:47) ANAPHYLAXIS Bleach (Sodium Hypochlorite) (BLEACH (SODIUM HYPOCHLORITE)) Allergy (Severe, Verified 11/09/24 11:47) DIFF BREATHING Fish Containing Products Allergy (Severe, Verified 11/09/24 11:47) HIVES HPI HPI OV-B/L knee pain-discuss other treatment option: Details: 49-year-old gentleman returns to the office today for bilateral knee pain status post gel injections. He states the gel injections lasted approximately 2 months but he is now experiencing pain worse on the left which is along the anterior l ateral aspect of the knee. It is worse with impact activities such as stairs or bending. [facility] Medical History Insomnia TERRY (generalized anxiety disorder) Physical exam Pneumonia Sleep apnea COVID-19 vaccine series completed History of COVID-19 Obesity (BMI 30.0-34.9) Left knee pain Right shoulder pain Nocturia Essential hypertension Right kidney mass Lung nodule Cholelithiasis Hypertension Asthma Juan Alberto Parkinson White pattern seen on electrocardiogram Surgical History S/P arthroscopy of right shoulder History of laparoscopic cholecystectomy History of cardiac catheterization Family History Son Heart murmur Daughter Heart disease Maternal Aunt Cancer Myocardial infarction Mother Cancer Father Heart disease Substance use disorder Sister Substance use disorder Social History Housing: Apartment Are you a primary hearing care professional to a significant other at home: No Do you presently have visiting nurse or other home services: No Alcohol intake: never Patient Tobacco Use Status: Current everyday Tobacco user Tobacco use type: Cigarette Cigarettes Per Day: 10 Years Smoked: 25 e-Cigarette/Vaping Use: Never Used Second Hand Smoke Exposure: No service: No Current occupational status: unemployed Current occupation: rt handed Cognitive needs: No Hearing needs: No Vision needs: No Review of Systems Const All systems reviewed & are unremarkable except as noted in HPI and below Physical Exam Vital Signs: BMI result Body Mass Index 29.7 Const General: cooperative and no acute distress Orientation/consciousness: patient oriented x3 Resp Effort & Inspection: normal respiratory effort and able to speak in complete sentences Cardio Peripheral pulses: Peripheral pulses 2+ throughout Neuro General: patient oriented x3 Extrem Other: Right knee skin intact, no erythema or joint effusion. Lateral retropatellar tenderness. ROM full with crepitus. Positive steinmans. No ligamentous laxity. NVI. Left knee skin intact, no erythema or joint effusion. Tenderness along the medial joint line. ROM full with crepitus. Negative steinmans. No ligamentous laxity. NVI. Office Procedures AMB Joint Injection/Aspiration Joint Injection/Aspiration Primary Site: right knee Secondary Site: left knee Prep: site was prepped using aseptic technique, ethochloride spray was applied and injection warnings given Injected: 80 mg of, DepoMedrol, with 8 mL of, 1% plain lidocaine and in the joint Approach Used: anterolateral Coding - Glenohumeral/Tronchanteric Bursa/Intraarticular Procedure code (CPT) selection complete Assessment & Plan Assessment & Plan (1) Patellofemoral arthritis of left knee: Code(s): M17.12 - Unilateral primary osteoarthritis, left knee Category: Medical (2) Patellofemoral arthritis of right knee: Code(s): M17.11 - Unilateral primary osteoarthritis, right knee Category: Medical Plan We discussed options today which includes physical therapy as he has not worked with them to improve his strength and conditioning. I did explain how this can help offset the load through the knee to help with his pain. I also placed a referral for pain management to discuss geniculate injections to see if he is a candidate. In the meantime we discussed steroid injections which she would like to have today. Both knees were injected with steroid which the patient did tolerate well. The patient will see me back as needed. Orders: Orders PT Evaluation and Treatment Today M17.11 - Unilateral primary osteoarthritis, right knee, M17.12 - Unilateral primary osteoarthritis, left knee Referrals Pain Management Referral M17.11 - Unilateral primary osteoarthritis, right knee, M17.12 - Unilateral primary osteoarthritis, left knee Coding Level of Care Code Est Pt Level 3 (67526) Complex EM visit Add On G2211 Diagnoses Patellofemoral arthritis of left knee M17.12 Patellofemoral arthritis of right knee M17.11 CPT Codes Coding - Joint 7: 46911 - Glenohumeral/Tronchanteric Bursa/Intraarticular ([id number])
[2024-11-09 11:47] VITALS: BMI 29.7
--- OUTSIDE RECORDS SUMMARY | 2024-11-09 13:05 | XMS_ITS | Clinical Summary ---
Author Organization [facility] Address [address] [place] [address] Phone Care Team Providers Care Arc Trimmer Name Role Phone Toyin Dennis MD Primary Care Provider [phone] Allergies No known active allergies Medications amLODIPine [...] Influenza Vaccine (#1) 2024 Insurance Care Teams Arc Trimmer Relationship Specialty Start Date End Date Toyin Dennis MD [address] [place], [place] [facility] - General 03/28/20
== END 2024-11-09 12:16 | disposition home or self-care (01) ==
LOC: HO.HOS 11:34
PROVIDERS: PCP Internal Medicine; Visit Provider Physician Assistant
DX: M17.0 Bilateral primary osteoarthritis of knee (principal)
CPT/HCPCS: 20610; 99213

== ENCOUNTER → 2024-11-09 11:33 | Outpatient (BNVA) | payer OTHER, SELFPAY | PROVIDERS: PCP Internal Medicine; Visit Provider Physician Assistant | DX: M17.0 Bilateral primary osteoarthritis of knee (principal) | CPT/HCPCS: 20610; 99212; J1010; J2003 ==

== ENCOUNTER 2024-12-01 10:58 | Outpatient (AMB) | payer OTHER, SELFPAY ==
--- NOTE | 2024-12-01 11:05 | A.OFFVIS_ITS ---
Vital Signs 12/01/24 11:10 Height 6 ft 2 in Weight 226 lb BMI 29.0 BP 159/104 H Blood Pressure Location Lt brachial Position Sitting Pulse 82 Pulse Source Pulse Oximeter Pulse Oximetry (%) 98 Oxygen Delivery Method Room Air Intake Visit Reasons: eval and discuss geniculate injections Intake Note: Pain today left knee 8/10, right knee 4/10 Digital Advisor Required: No Accompanied by: Self / Same As Patient Allergies bee pollen (BEE STINGS) Allergy (Severe, Verified 12/01/24 11:09) ANAPHYLAXIS Bleach (Sodium Hypochlorite) (BLEACH (SODIUM HYPOCHLORITE)) Allergy (Severe, Verified 12/01/24 11:09) DIFF BREATHING Fish Containing Products Allergy (Severe, Verified 12/01/24 11:09) HIVES HPI Comments Details: The patient is a 49-year-old male presenting with bilateral knee pain, with the left knee being more symptomatic. The knee pain is attributed to patellofemoral arthritis, which was diagnosed based on clinical evaluation and imaging findings. The patient has received cortisone and gel injections in both knees, with the most recent cortisone injection administered approximately three weeks to a month ago. The injections typically provide relief for about two and a half to three months, but the most recent injection was less effective, lasting only two months. The patient reports that the injection was painful upon administration, which was unusual compared to previous experiences. The patient has not yet started physical therapy for the knees but has an appointment scheduled for . He has previously undergone physical therapy for shoulder rehabilitation following surgery. The patient has a history of hypertension and cardiac stent placement, with the stent procedure performed in 2002 or 2003. He does not take blood thinners and has been advised by his anatomy professor that aspirin is not necessary. 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 - Onset: Chronic bilateral knee pain, left worse than right - Quality: Stabbing, sharp, aching pain - Severity: 9/10 with activity, 5/10 during the day - Location: Left knee primarily in the front, right knee on the lateral side - Exacerbating factors: Walking, movements, climbing stairs, bending knees, cold weather - Relieving factors: Rest, elevation, sitting, temporary relief with previous cortisone and gel injections, topical creams - Affect: Pain impacts on mood and wellbeing and reduces his quality of life - Analgesia: Current pain levels 9/10 with activity, 5/10 during the day; goal pain levels not specified - Adverse Effects: None from current medications discussed - Activities of Daily Living: Pain interferes with walking, movements, and climbing stairs - Aberrant Drug Related Behaviors: None reported [facility] Medical History Insomnia TERRY (generalized anxiety disorder) Physical exam Pneumonia Sleep apnea COVID-19 vaccine series completed History of COVID-19 Obesity (BMI 30.0-34.9) Left knee pain Right shoulder pain Nocturia Essential hypertension Right kidney mass Lung nodule Cholelithiasis Hypertension Asthma Juan Alberto Parkinson White pattern seen on electrocardiogram Surgical History S/P arthroscopy of right shoulder History of laparoscopic cholecystectomy History of cardiac catheterization Family History Son Heart murmur Daughter Heart disease Maternal Aunt Cancer Myocardial infarction Mother Cancer Father Heart disease Substance use disorder Sister Substance use disorder Social History Housing: Apartment Are you a primary career information specialist to a significant other at home: No Do you presently have visiting nurse or other home services: No Alcohol intake: former Year quit: 2018 Patient Tobacco Use Status: Current everyday Tobacco user Tobacco use type: Cigarette Cigarettes Per Day: 10 Years Smoked: 25 e-Cigarette/Vaping Use: Never Used Second Hand Smoke Exposure: No service: No Current occupational status: unemployed Current occupation: rt handed Cognitive needs: No Hearing needs: No Vision needs: No Review of Systems Const Details: - Musculoskeletal: Reports bilateral knee pain, left worse than right. Denies back pain. - Neurological: Denies numbness or tingling, weakness or balance issues, bladder or bowel dysfunction or saddle anesthesia All systems reviewed & are unremarkable except as noted in HPI and below Physical Exam Vital Signs: Last Vital Signs Pulse 82 12/01/24 11:10 BP 159/104 H 12/01/24 11:10 Pulse Ox 98 12/01/24 11:10 Oxygen Delivery Method Room Air 12/01/24 11:10 BMI result Body Mass Index 29.0 General: Appears afebrile. Alert and oriented. Mood and affect appropriate. Follows and participates in conversation appropriately. Respiratory effort is unlabored. No cough. Able to transition from sit to stand unassisted. Ambulates with bilaterally normal heel strike and toe off. Extrem General: Yes capillary refill normal, Yes no clubbing, cyanosis or edema and Yes no calf tenderness Right lower extremity: knee Details: normal to inspection, tenderness Location: of the lateral joint line, normal ROM and crepitus; no swelling, no ecchymosis, no deformity and no unusual warmth Left lower extremity: knee Details: normal to inspection, tenderness Location: of the medial joint line, normal ROM and crepitus; no swelling, no ecchymosis and no deformity Results Reviewed Results Reviewed: MR knee RT wo con 03/18/24 CLINICAL HISTORY: M17.11 - Unilateral primary osteoarthritis, right knee MR right knee without gadolinium Comparison: DX - XR KNEE RT 3V - 02/07/2024 10:24 AM EST Findings: The anterior and posterior cruciate ligaments are intact. No meniscal tear. Quadriceps tendon and patellar tendon are intact. Mild tendinopathy of the distal quadriceps tendon. Mild edema within the quadriceps fat pad with a posterior convex border. Medial collateral ligament and lateral collateral complex are within normal limits. No focal cartilage defects. Physiologic amount of fluid within the knee joint. Bone marrow signal intensity is within normal limits. Impression: 1. No cruciate ligament, collateral ligament, or meniscal tear. 2. Edema within the quadriceps fat pad with convex posterior border. This finding has been described in association with anterior knee pain. This is seen in association with mild tendinopathy of the distal quadriceps tendon. XR KNEE LEFT 02/07/24 CLINICAL INFORMATION: Pain. COMPARISON: None available TECHNIQUE: Three views of the left knee. FINDINGS: No fracture or joint effusion. Alignment is anatomic. Joint spaces are maintained. No abnormal soft tissue calcification. IMPRESSION: No acute abnormality in the left knee XR KNEE RIGHT 02/07/24 CLINICAL INFORMATION: PAIN. COMPARISON: None available TECHNIQUE: Three views of the right knee. FINDINGS: No fracture or joint effusion. Alignment is anatomic. Joint spaces are maintained. No abnormal soft tissue calcification. IMPRESSION: Normal right knee. Assessment & Plan Assessment & Plan (1) Bilateral knee pain: Code(s): M25.561 - Pain in right knee; M25.562 - Pain in left knee Category: Medical Qualifiers: Chronicity: chronic Qualified Code(s): M25.561 - Pain in right knee; M25.562 - Pain in left knee; G89.29 - Other chronic pain (2) Patellofemoral arthritis of left knee: Code(s): M17.12 - Unilateral primary osteoarthritis, left knee Category: Medical (3) Patellofemoral arthritis of right knee: Code(s): M17.11 - Unilateral primary osteoarthritis, right knee Category: Medical Plan The plan for managing the patient's bilateral knee pain includes initiating physical therapy, which is scheduled to begin shortly. The patient has been informed about the option of diagnostic nerve blocks and radiofrequency ablation or Sprint PNS trial as potential interventions for longer term pain management. The patient is interested to discuss these options with his family and decide on the preferred procedure, considering insurance requirements and potential outcomes. Script since for Celebrex and lidocaine patches. Side effects and precautions were discussed with patient. Patient is aware to avoid other NSAIDs while taking Celebrex and take medication with food and full glass of water. All questions and concerns have been answered and patient agreed with the treatment plan. Follow up as needed. Patient was informed and verbally consented to the use of an ambient scribe for clinic note documentation during this visit. Medications: New celecoxib Take it with food and full glass of water. Avoid other NSAIDs. 200 mg PO BID PRN 30 caps 0RF pain 15 days G89.29 - Other chronic pain, M17.11 - Unilateral primary osteoarthritis, right knee, M17.12 - Unilateral primary osteoarthritis, left knee, M25.561 - Pain in right knee, M25.562 - Pain in left knee lidocaine 5% 2 patches topical DAILY 30 ea 3RF pain 15 days G89.29 - Other chronic pain, M17.11 - Unilateral primary osteoarthritis, right knee, M17.12 - Unilateral primary osteoarthritis, left knee, M25.561 - Pain in right knee, M25.562 - Pain in left knee Coding Level of Care Code New Pt Level 4 (11724) Complex EM visit Add On G2211 Diagnoses Chronic pain of both knees M25.561; M25.562; G89.29 Chronicity: chronic Patellofemoral arthritis of left knee M17.12 Patellofemoral arthritis of right knee M17.11
[2024-12-01 11:10] VITALS: BP 159/104; PULSE 82; O2SAT 98; BMI 29.0
--- OUTSIDE RECORDS SUMMARY | 2024-12-01 14:49 | XMS_ITS | Clinical Summary ---
Author Organization [facility] Address [address] [place] [address] Phone Care Team Providers Care Atmospheric Technician Name Role Phone Toyin Dennis MD Primary Care Provider [phone] Allergies No known active allergies Medications amLODIPine [...] Influenza Vaccine (#1) 2024 Insurance Care Teams Atmospheric Technician Relationship Specialty Start Date End Date Toyin Dennis MD [address] [place], [place] [facility] - General 03/28/20
== END 2024-12-01 11:32 | disposition home or self-care (01) ==
PROVIDERS: PCP Internal Medicine; Visit Provider Nurse Practitioner Family
DX: M25.561 Pain in right knee (principal); M25.562 Pain in left knee; G89.29 Other chronic pain; M17.0 Bilateral primary osteoarthritis of knee
CPT/HCPCS: 99204

== ENCOUNTER → 2024-12-01 10:58 | Outpatient (BNVA) | payer OTHER, SELFPAY | PROVIDERS: PCP Internal Medicine; Visit Provider Nurse Practitioner Family | DX: M25.561 Pain in right knee (principal); M25.562 Pain in left knee; M17.12 Unilateral primary osteoarthritis, left knee; M17.11 Unilateral primary osteoarthritis, right knee; G89.29 Other chronic pain | CPT/HCPCS: 99202 ==

== ENCOUNTER 2025-01-07 08:44 | Outpatient (RCR) | payer OTHER, SELFPAY ==
--- NOTE | 2024-12-03 16:08 | MHC.PT.EP ---
[facility] [place] Office [place] Office [place] Office [address] [phone] F: [phone] F: [phone] F: [phone] F: [phone] Physical Therapy Plan of Care Date of Evaluation: 12/03/24 Date of Surgery: Diagnosis: Unilateral primary osteoarthritis, left knee Unilateral primary osteoarthritis, right knee Patellofemoral arthritis of left knee *Patellofemoral arthritis of right knee Assessment: Pt is a pleasant and motivated 49yo M who presents to PT with B knee pain, L>R. He presents to PT with current impairments in pain, decreased ROM, decreased strength, soft tissue restrictions, decreased balance/proprioception, and impaired gait. He is limited functionally by prolonged standing, walking, and stair navigation. He is a good candidate for skilled PT in order to address current impairments to facilitate return to PLOF. He is recommended to be seen 2x/week for 3 weeks and will be reassessed at that time Frequency and Duration: The patient will be seen 2x/week for 4 weeks Short Term Goals: Pt will be I with HEP to promote self management of symptoms Pt will improve B knee flexion by at least 10 degrees Senior Living Goals: Pt will achieve full ROM and strength all planes of B knees to assist with prolonged standing and walking Pt will ambulate > 30 min with improved gait mechanics and pain < 2/10 Pt will ascend/descend 1 flight of stairs with reciprocal pattern independently with pain < 3/10 Treatment Plan: Modalities to reduce pain, spasms and effusion. Manual therapy to restore motion and function. Therapeutic exercise to improve strength and flexibility. Neuromuscular re-education for posture and balance. Therapeutic activities to return to functional activities of daily living. Electronically signed by: Marisel De La Paz, PT, DPT Please sign and return to therapist. Thank you for your referral.
--- NOTE | 2025-02-15 09:41 | MHC.PT.DC ---
[facility] [place] Office [place] Office [place] Office [address] [facility] [phone] F: [phone] F: [phone] F: [phone] F: [phone] Physical Therapy Discharge Report Diagnosis: Unilateral primary osteoarthritis, left knee Unilateral primary osteoarthritis, right knee Patellofemoral arthritis of left knee *Patellofemoral arthritis of right knee Date of Surgery: Date of Evaluation: 12/03/24 Date of Discharge: 02/15/25 Treatments to Date: 4 Cancellations to Date: 2 No Shows to Date: Discharge Status: Patient Elected to Stop Discharge Summary: Pt was seen for skilled PT from 12/03/24-01/07/25. His last scheduled appointment was 01/07/25. He cancelled his last scheduled appointment. He is being D/C from skilled PT as he has not attended or called to reschedule in > 30 days. Pt current level of function unknown at this time Electronically signed by: Marisel Chavez, PT, DPT Please sign and return to therapist. Thank you for your referral.
== END 2025-02-15 09:41 | disposition home or self-care (01) ==
LOC: HO.PT 08:44
PROVIDERS: PCP Internal Medicine; Visit Provider Physician Assistant
DX: M17.0 Bilateral primary osteoarthritis of knee (principal)
CPT/HCPCS: 97110; 97140; 97162

== ENCOUNTER 2025-01-28 06:48 | Outpatient (REF) | payer OTHER, SELFPAY ==
--- OUTSIDE RECORDS SUMMARY | 2025-01-28 06:52 | XMS_ITS | Clinical Summary ---
Author Organization [facility] Address [address] [place] [address] Phone Care Team Providers Care Buckle Gluer Name Role Phone Toyin Dennis MD Primary Care Provider [phone] Allergies No known active allergies Medications amLODIPine [...] Influenza Vaccine (#1) 2024 Insurance Care Teams Buckle Gluer Relationship Specialty Start Date End Date Toyin Dennis MD [address] [place], [place] [facility] - General 03/28/20
[2025-01-28 07:01] LABS: MANUAL DIFF FLAG NO
[2025-01-28 07:15] LABS: Hematocrit 44.9 % (42.0-52.0); Hemoglobin 15.5 g/dl (14.0-18.0); Imm Gran Abs Auto 0.04 X10*3/uL (0.00-0.03); Imm Gran Pct Auto 0.4 % (0.0-0.4); Lymphocytes Absolute Auto 3.3 X10*3/uL (1.2-4.9); Mean Corpuscular HGB Conc 34.5 g/dl (31.0-36.0); Mean Corpuscular Hemoglobin 32.0 pg (27.0-33.0); Mean Corpuscular Volume 92.6 fL (80.0-98.0); NRBC Abs Auto 0.000 X10*3/uL (0.0-0.012); NRBC Pct Auto 0.0 /100WBC (0.0-0.2); Platelet Count 219 X10*3/uL (160-400); Red Blood Count 4.85 X10*6/uL (4.60-5.80); White Blood Count 11.1 X10*3/uL (4.8-10.8)
[2025-01-28 07:48] LABS: Alanine Aminotransferase 26 U/L (0-40); Albumin Level 4.3 g/dL (3.5-5.0); Alkaline Phosphatase 90 U/L (39-117); Anion Gap 11 (12-20); Aspartate Amino Transferase 60 U/L (5-37); Blood Urea Nitrogen 9 mg/dL (9-16); Calcium 9.1 mg/dL (8.4-10.2); Carbon Dioxide 22 mmol/L (22-29); Chloride 110 mmol/L (96-108); Cholesterol 162 mg/dL (<200); Estimated Glomerular Filt Rate > 60; HDL Cholesterol 41 mg/dL (>40); Potassium 3.9 mmol/L (3.3-5.1); Sodium 139 mmol/L (135-145); Total Protein 7.4 g/dL (6.5-8.0); Triglycerides 240 mg/dL (<150)
== END 2025-01-28 06:49 | disposition home or self-care (01) ==
LOC: HO.LAB 06:48
PROVIDERS: PCP Internal Medicine; Visit Provider Internal Medicine
DX: I10 Essential (primary) hypertension (principal); E55.9 Vitamin D deficiency, unspecified; E78.5 Hyperlipidemia, unspecified; D72.829 Elevated white blood cell count, unspecified; R73.02 Impaired glucose tolerance (oral)
CPT/HCPCS: 36415; 80053; 80061; 82306; 85025

== ENCOUNTER 2025-02-04 13:12 | Outpatient (AMB) | payer OTHER, SELFPAY ==
[2025-02-04 13:23] VITALS: BP 154/92; PULSE 110; RESP 18; TEMP 36.6; O2SAT 99; BMI 29.3
--- NOTE | 2025-02-04 13:23 | MHC.PC.OV ---
Vital Signs 02/04/25 13:23 Height 6 ft 2 in Weight 228 lb 2 oz BMI 29.3 BP 154/92 H Blood Pressure Location Lt brachial Position Sitting Respiration 18 Pulse 110 H Pulse Source Pulse Oximeter Temp 97.8 F Temp Source Temporal Artery Scan Pulse Oximetry (%) 99 Oxygen Delivery Method Room Air Intake Visit Reasons: Annual Exam Intake Note: annual exam Child Nutrition Director Required: No Accompanied by: Self / Same As Patient Allergies bee pollen (BEE STINGS) Allergy (Severe, Verified 02/04/25 13:41) ANAPHYLAXIS Bleach (Sodium Hypochlorite) (BLEACH (SODIUM HYPOCHLORITE)) Allergy (Severe, Verified 02/04/25 13:41) DIFF BREATHING Fish Containing Products Allergy (Severe, Verified 02/04/25 13:41) HIVES Medication List - Last Reconciled 02/04/25 by Toyin Grace MD albuterol sulfate 90 mcg/actuation (ProAir RespiClick) 2 inhalations inhalation Q6H PRN 30 days albuterol sulfate 2.5 mg (3 mL) inhalation Q4-6H PRN amlodipine 5 mg PO DAILY 90 days celecoxib 200 mg PO BID PRN 15 days ipratropium-albuterol 0.5 mg-3 mg(2.5 mg base)/3 mL 3 mL inhalation Q4-6H PRN 30 days lidocaine 5% 2 patches topical DAILY 15 days naloxone 4 mg/actuation (Narcan) 4 mg intranasal Q2M PRN tramadol 50 mg PO BID PRN 15 days Tobacco use date assessed: 07/02/24 Dental Screening Dental Screen Date: 02/04/25 Did you have a dental visit in the last 12 months?: Yes Did you have a dental problem in the last 6 months where you did not have access to dental care?: No Was dental information given to patient?: Patient has dentist HPI HPI Comments History of Present Illness Details The patient is a 49 year old individual presenting for blood pressure management and preventative care. The patient is prescribed amlodipine 5 mg and did not take the medication on the day of the visit. Blood pressure slightly elevated. Will have flu and Tdap vaccine today. Colonoscopy scheduled for March. Still has knee pain and try tramadol which gave him diarrhea and would like Percocet. Aware that is going to be for short amount of time. [facility] Medical History Insomnia TERRY (generalized anxiety disorder) Physical exam Pneumonia Sleep apnea COVID-19 vaccine series completed History of COVID-19 Obesity (BMI 30.0-34.9) Left knee pain Right shoulder pain Nocturia Essential hypertension Right kidney mass Lung nodule Cholelithiasis Hypertension Asthma Juan Alberto Parkinson White pattern seen on electrocardiogram Surgical History S/P arthroscopy of right shoulder History of laparoscopic cholecystectomy History of cardiac catheterization Family History Son Heart murmur Daughter Heart disease Maternal Aunt Cancer Myocardial infarction Mother Cancer Father Heart disease Substance use disorder Sister Substance use disorder Social History Housing: Apartment Are you a primary animal care giver to a significant other at home: No Do you presently have visiting nurse or other home services: No Alcohol intake: former Year quit: 2018 Patient Tobacco Use Status: Current everyday Tobacco user Tobacco use type: Cigarette Cigarettes Per Day: 10 Years Smoked: 25 e-Cigarette/Vaping Use: Never Used Second Hand Smoke Exposure: No service: No Current occupational status: unemployed Current occupation: rt handed Cognitive needs: No Hearing needs: No Vision needs: No Questionnaire Thrive Questionnaire Date Thrive assessed: 11/03/24 I am a: Patient What is your living situation today?: I have a steady place to live Within the past 12 months, did the food you bought not last and you didn't have the money to get more?: I choose not to answer this question Within the past 12 months, did you worry whether your food would run out before you got money to buy more?: I choose not to answer this question Do you have trouble paying for medicines?: No Do you have trouble getting transportation to medical appointments?: No Do you have trouble paying your heating and electricity bill?: I choose not to answer this question Do you have trouble taking care of your child, family member or friend?: No Do you have trouble with day-to-day activities such as bathing, preparing meals, shopping, managing finances, etc.?: Yes Are you currently unemployed and looking for a job?: I choose not to answer this question Are you interested in more education?: No Please select the resources that you would like help with: Childcare Currently or been in a relationship where the following occur: I choose not to answer THRIVE Score: 0 TERRY-7 AMB Questionnaire TERRY-7 Date TERRY - 7 assessed: 07/02/24 Source: Developed by Drs. Carlos Enrique García, Genna Das, Lui Haskins and colleagues, with an educational leah from [employer]. Review of Systems Const All systems reviewed & are unremarkable except as noted in HPI and below Card Denies chest pain at rest, Denies chest pain with activity, Denies edema, Denies irregular heart rhythm, Denies claudication, Denies dyspnea, Denies dyspnea on exertion, Denies orthopnea, Denies paroxysmal nocturnal dyspnea and Denies slow heart rate Resp Denies cough, Denies dyspnea and Denies dyspnea on exertion GI Denies abdominal pain, Denies change in bowel habits, Denies excessive flatus, Denies nausea and Denies vomiting Physical exam (Primary Care) Vital Signs: Last Vital Signs Temp 97.8 F 02/04/25 13:23 Pulse 110 H 02/04/25 13:23 Resp 18 02/04/25 13:23 BP 154/92 H 02/04/25 13:23 Pulse Ox 99 02/04/25 13:23 Oxygen Delivery Method Room Air 02/04/25 13:23 BMI result Body Mass Index 29.3 Tobacco/Smoking Status: Tobacco use Status Tobacco use date assessed 07/02/24 02/04/25 13:30 Patient Tobacco Use Status Current everyday Tobacco 02/04/25 13:30 Tobacco use type Cigarette 02/04/25 13:30 e-Cigarette/Vaping Use Never Used 02/04/25 13:30 Thrive Assessment: Date of Thrive Assessment Date Thrive assessed 11/03/24 02/04/25 13:30 Currently or been in a relationship where the following occur: I choose not to answer [facility] Head: Yes normal to inspection, Yes normocephalic and Yes atraumatic Ears: external ears normal Eyes General: appearance normal, both eyes and all related structures Eyelids: Yes eyelids normal Conjunctivae: conjunctivae normal Neck Neck: Yes normal visual inspection and Yes supple Resp Effort & Inspection: normal respiratory effort Auscultation: clear to auscultation bilaterally Cardio Jugular venous distension: no JVD Rate: regular rate Rhythm: regular rhythm Heart sounds: S1 normal heart sound present and S2 normal heart sound present GI Inspection: Yes normal to inspection Palpation (GI): Soft to palpation and nontender Auscultation: normal bowel sounds Skin General skin exam: no rashes or lesions noted Neuro General: no focal motor deficits Extrem General: Yes full ROM Psych Appearance: grossly normal Office Procedures Flu Questionnaire Does the patient have a severe egg allergy?: No Does the patient have severe life threatening allergies?: No Does the patient have a fever or illness today?: No Has the patient ever had Guillain-[place] Syndrome?: No Has the patient ever had any past reaction to a flu shot?: No Immunizations Fluarix [id number] (PF) 45 mcg (15 mcg x 3)/0.5 mL IM syringe Performing Provider: Toyin Grace MD Performing Location: [facility] Administered by: Govind Salomon CMA on 02/04/25 14:01 Dose Route Admin Location Dispensed Lot Number Expiration Date NDC Cloth Measurer Machine 0.5 mL IM Left Deltoid 0.5 mL [id number] 09/14/25 76702-584-62 [id number] VIS Given Date VIS Provided VIS Publication Date 02/04/25 Single Vaccine 24 Eligibility Eligibility Date Funding Source [facility] Eligible-Medicaid 02/04/25 Private Boostrix Tdap 2.5 Lf unit-8 mcg-5 Lf/0.5 mL intramuscular syringe Performing Provider: Toyin Grace MD Performing Location: [facility] Administered by: Govind Salomon CMA on 02/04/25 14:01 Dose Route Admin Location Dispensed Lot Number Expiration Date ND Cloth Measurer Machine 0.5 mL IM Right Deltoid 0.5 mL [id number] 08/28/27 02273-583-80 [employer] Total Dispensed Waste 0.5 mL 0 % VIS Given Date VIS Provided VIS Publication Date 02/04/25 Single Vaccine 20 Eligibility Eligibility Date Funding Source [facility] Eligible-Medicaid 02/04/25 Private Coding Level of Care Code Est Pt Level 3 (94906) Est Pt Prev Care 40-64y(10190) Diagnoses Physical exam Z00.00 Right knee pain M25.561 Time Spent (min) 33 Assessment & Plan Assessment & Plan (1) Physical exam: Code(s): Z00.00 - Encounter for general adult medical examination without abnormal findings Category: Medical (2) Right knee pain: Code(s): M25.561 - Pain in right knee Category: Medical Plan Repeat in a year. Be compliant with amlodipine. Blood pressure goal is equal or less than 130/80. Colonoscopy pending for March. Tdap and flu vaccine administered today. Orders: Orders TDaP Immunization Today Z23 - Encounter for immunization Influenza [id number] Immunization Today Z23 - Encounter for immunization Medications: New cholecalciferol (vitamin D3) 25 mcg PO DAILY 90 caps 1RF 90 days oxycodone-acetaminophen 5-325 mg (Percocet) Partial Fill upon patient request. 1 tab PO Q8H PRN 60 tabs 0RF pain 30 days
== END 2025-02-04 14:01 | disposition home or self-care (01) ==
LOC: HO.HMCH 13:13
PROVIDERS: PCP Internal Medicine; Visit Provider Internal Medicine
DX: Z00.00 Encounter for general adult medical examination without abnormal findings (principal); M25.561 Pain in right knee; Z23 Encounter for immunization

== ENCOUNTER → 2025-02-04 13:12 | Outpatient (BNVA) | payer OTHER, SELFPAY | PROVIDERS: PCP Internal Medicine; Visit Provider Internal Medicine | DX: Z00.00 Encounter for general adult medical examination without abnormal findings (principal); Z23 Encounter for immunization; M25.561 Pain in right knee | CPT/HCPCS: 90471; 90472; 90656; 90715; 99212; 99396 ==

== ENCOUNTER 2025-03-01 10:20 | Outpatient (AMB) | payer OTHER, SELFPAY ==
[2025-03-01 10:54] VITALS: BP 161/97; PULSE 81; RESP 16; O2SAT 98; BMI 29.3
--- NOTE | 2025-03-01 10:54 | A.OFFVIS_ITS ---
Vital Signs 03/01/25 10:54 Height 6 ft 2 in Weight 228 lb BMI 29.3 BP 161/97 H Blood Pressure Location Lt brachial Position Sitting Respiration 16 Pulse 81 Pulse Source Pulse Oximeter Pulse Oximetry (%) 98 Oxygen Delivery Method Room Air Intake Visit Reasons: Left Diagnostic Saphenous nerve block Stock And Station Agent Required: No Principal Java Software Engineer: Principal Java Software Engineer Present Accompanied by: Homer Webb Allergies bee pollen (BEE STINGS) Allergy (Severe, Verified 03/01/25 10:56) ANAPHYLAXIS Bleach (Sodium Hypochlorite) (BLEACH (SODIUM HYPOCHLORITE)) Allergy (Severe, Verified 03/01/25 10:56) DIFF BREATHING Fish Containing Products Allergy (Severe, Verified 03/01/25 10:56) HIVES Medication List - Last Reconciled 03/01/25 by Maria Antonia Oliver LPN albuterol sulfate 90 mcg/actuation (ProAir RespiClick) 2 inhalations inhalation Q6H PRN 30 days albuterol sulfate 2.5 mg (3 mL) inhalation Q4-6H PRN amlodipine 5 mg PO DAILY 90 days celecoxib 200 mg PO BID PRN 15 days cholecalciferol (vitamin D3) 25 mcg PO DAILY 90 days ipratropium-albuterol 0.5 mg-3 mg(2.5 mg base)/3 mL 3 mL inhalation Q4-6H PRN 30 days lidocaine 5% 2 patches topical DAILY 15 days naloxone 4 mg/actuation (Narcan) 4 mg intranasal Q2M PRN oxycodone-acetaminophen 5-325 mg (Percocet) 1 tab PO Q8H PRN 30 days tramadol 50 mg PO BID PRN 15 days HPI HPI Left Diagnostic Saphenous nerve block: Details: Patient presents for scheduled procedure. Denies any recent cough, cold, infection, fever or other significant changes in medical history since last office visit. HPI Comments Details: [facility] Medical History Insomnia TERRY (generalized anxiety disorder) Physical exam Pneumonia Sleep apnea COVID-19 vaccine series completed History of COVID-19 Obesity (BMI 30.0-34.9) Left knee pain Right shoulder pain Nocturia Essential hypertension Right kidney mass Lung nodule Cholelithiasis Hypertension Asthma Juan Alberto Parkinson White pattern seen on electrocardiogram Surgical History S/P arthroscopy of right shoulder History of laparoscopic cholecystectomy History of cardiac catheterization Family History Son Heart murmur Daughter Heart disease Maternal Aunt Cancer Myocardial infarction Mother Cancer Father Heart disease Substance use disorder Sister Substance use disorder Social History Housing: Apartment Are you a primary career services representative to a significant other at home: No Do you presently have visiting nurse or other home services: No Alcohol intake: former Year quit: 2018 Patient Tobacco Use Status: Current everyday Tobacco user Tobacco use type: Cigarette Cigarettes Per Day: 10 Years Smoked: 25 e-Cigarette/Vaping Use: Never Used Second Hand Smoke Exposure: No service: No Current occupational status: unemployed Current occupation: rt handed Cognitive needs: No Hearing needs: No Vision needs: No Physical Exam Exam Exam: Physical Exam - General: The patient was positioned lying down on the examination table with his head to the side. Vital Signs: Last Vital Signs Pulse 81 03/01/25 10:54 Resp 16 03/01/25 10:54 BP 161/97 H 03/01/25 10:54 Pulse Ox 98 03/01/25 10:54 Oxygen Delivery Method Room Air 03/01/25 10:54 BMI result Body Mass Index 29.3 Office Procedures Nerve Block Details: Left adductor canal saphenous nerve block, ultrasound-guided After obtaining written consent, pre-procedure blood pressure and heart rate were stable and recorded in the nursing record. The patient was placed supine on the table. The medial thigh area overlying the adductor canal was widely prepped with chloraprep, allowed to dry and sterilely draped. Using ultrasound, the appropriate landmarks including the femoral artery and saphenous nerve were identified. The skin overlying the target was anesthetized with 0.5% lidocaine. A 21 gauge 80 mm echostim needle was advanced under sonographic guidance to the adductor canal. Aspiration was negative for heme and synovial fluid. 10 cc of ropivacaine 0.25%? was injected around the saphenous nerve. The needles were removed, skin cleansed and a sterile bandage was applied. The patient tolerated the procedure well and no complications were encountered. Following the procedure the patient's vital signs and knee strength were stable. The patient was discharged home in good condition with post- procedural instructions. Time Out: Immediately prior to the procedure, the following was verbally confirmed that there is a signed consent form and that the correct patient, planned procedure, site and side are consistent with documentation and that necessary equipment and/or blood products are available prior to the start of the case. Complications: none EBL: <1 cc [id number] - Femoral (adductor injection) Procedure code (CPT) selection complete Assessment & Plan Assessment & Plan (1) Left knee pain: Code(s): M25.562 - Pain in left knee Category: Medical Qualifiers: Chronicity: chronic Qualified Code(s): M25.562 - Pain in left knee; G89.29 - Other chronic pain Plan Patient is status post diagnostic left saphenous nerve block. Patient tolerated procedure well and was discharged home in stable condition with discharge instructions. All questions were answered. Counseled regarding potential weakness/buckling. Coding Level of Care Code Procedure Only Diagnoses Chronic pain of left knee M25.562; G89.29 Chronicity: chronic CPT Codes Nerve Block - Nerve Block 7: 38656 - Femoral (adductor injection) ([id number])
== END 2025-03-01 11:17 | disposition home or self-care (01) ==
LOC: HO.PMC 10:21
PROVIDERS: PCP Internal Medicine; Visit Provider Internal Medicine
DX: M25.562 Pain in left knee (principal); G89.29 Other chronic pain
CPT/HCPCS: 64447

== ENCOUNTER → 2025-03-01 10:20 | Outpatient (BNVA) | payer OTHER, SELFPAY | PROVIDERS: PCP Internal Medicine; Visit Provider Internal Medicine | DX: G89.29 Other chronic pain (principal); M25.562 Pain in left knee | CPT/HCPCS: 64447 ==